=== PATIENT | female | born 1980 | race Two or more races ===

== ENCOUNTER 2021-07-11 11:01 | Outpatient (REF) | payer MEDICAID, SELFPAY ==
--- NOTE | ~2021-07-11 | MM_ITS ---
EXAMINATION: MM DIAGNOSTIC DIGITAL BREAST TOMOSYNTHESIS, BILATERAL US DIAGNOSTIC ULTRASOUND BREAST, LEFT CLINICAL INFORMATION: 41-year-old with lateral left breast pain for 3 months. No known family history breast cancer. No prior breast imaging. The lifetime risk of breast cancer based on the Tyrer-Cuzick Model is 7%. COMPARISON: None (current study represents initial baseline exam). TECHNIQUE: Digital breast tomosynthesis is performed in both the craniocaudal and mediolateral oblique views along with computer-aided detection (CAD). Synthesized 2D images are generated from the tomosynthesis. Ultrasound left breast is targeted to the area of clinical concern outer left breast. Grayscale imaging and color Doppler are performed without and with harmonics. Patient is able to point to the area of concern at time of imaging. FINDINGS: There are scattered areas of fibroglandular density (ACR BI-RADS breast composition Category b). There are no significant masses, abnormal calcifications, or other abnormalities. The axilla and skin contours are unremarkable. There is no skin thickening or coarsening of the Luigi's ligaments. Ultrasound left breast demonstrates no suspicious finding medial. There is no skin thickening or edema tracking in soft tissue planes, duct ectasia, solid mass, architectural abnormality. Incidental tiny simple cyst is present 3:00 position 7 cm from nipple, only 0.3 cm in size. Results are discussed with the patient and family at time of visit, using an sign language interpreter. MM/MM tomosynthesis diagnostic BI IMPRESSION: 1. No mammographic evidence of malignancy or inflammatory changes. 2. Tiny incidental simple cyst 3:00 position on ultrasound, only 3 mm. ASSESSMENT: BI-RADS 2: Benign RECOMMENDATION: 1. Patient's breast pain should be managed based on the clinical impression. 2. Otherwise, routine annual screening mammography. This patient's information was entered into a reminder system with a target due date for their next mammogram.
== END 2021-07-11 11:02 | disposition home or self-care (01) ==
LOC: HO.MAMMO 11:01
PROVIDERS: PCP General Practice; Visit Provider Family Medicine
DX: N64.4 Mastodynia (principal)
CPT/HCPCS: 76642; 77062; 77066

== ENCOUNTER 2021-09-26 09:10 | Outpatient (REF) | payer MEDICAID, SELFPAY ==
--- NOTE | ~2021-09-26 | XR_ITS ---
EXAMINATION: XR CHEST CLINICAL INFORMATION: Chronic cough COMPARISON: Chest radiographs 05/09/2016, 04/05/2012 TECHNIQUE: The chest is imaged in 2 PA views and a lateral projection for a total of 3 views. FINDINGS: The heart is within limits of normal size. The vascularity is normal. There is no airspace consolidation or groundglass opacity or effusion. The costophrenic sulci are clear. The hilar and mediastinal contours and bony structures are unremarkable. XR/XR chest 2V IMPRESSION: Unremarkable examination.
== END 2021-09-26 09:11 | disposition home or self-care (01) ==
LOC: HO.XRAY 09:10
PROVIDERS: PCP General Practice; Visit Provider General Practice
DX: R05.3 Chronic cough (principal)
CPT/HCPCS: 71046

== ENCOUNTER 2021-10-23 09:02 | Outpatient (REF) | payer MEDICAID, SELFPAY ==
--- NOTE | ~2021-10-23 | US_ITS ---
EXAMINATION: US THYROID CLINICAL INFORMATION: Elevated TSH. Difficulty swallowing. COMPARISON: None TECHNIQUE: Linear transducer grayscale and color Doppler examination with attention to the region of the thyroid. FINDINGS: SIZE: Measurements of the thyroid lobes and nodules are given in sagittal, anteroposterior and transverse dimensions respectively. Right Thyroid Lobe: 3.7 x 1.2 x 1.3 cm, volume 3.1 mL. Parenchyma: The gland echotexture is homogeneous. Thyroid vascularity is normal. Left Thyroid Lobe: 4.2 x 1.2 x 1.3 cm, volume 3.2 mL. Parenchyma: The gland echotexture is homogeneous. Thyroid vascularity is normal. Isthmus: 0.2 cm in maximum AP dimension. Estimated total number of nodules greater than or equal to 1 cm: 0. Weight Shifter nodules are described as follows: 1. Location: Left lower pole. Size: 0.4 x 0.2 x 0.3 cm, volume 0.01 mL. Nodule characteristics: Composition: Cystic(0). ACR TI-RADS total points: 0 ACR TI-RADS category: 1 NODES: No lymphadenopathy is seen in the tissue surrounding the thyroid gland. US/US thyroid IMPRESSION: Small left cystic nodule measuring 4 x 2 x 3 mm. Otherwise unremarkable exam. ACR TI-RADS RECOMMENDATION REFERENCE: Ultrasound-guided fine-needle aspiration, followup ultrasound, no further follow up. * TR1 (0 point) and TR 2 (2 points): No FNA or follow up * TR3 (3 points): FNA if more than or equal to 2.5 cm in maximum dimension, followup ultrasound in 1, 3 and 5 years if 1.5 to 2.4 cm in maximum dimension. * TR4 (4-6 points): FNA if more than or equal to 1.5 cm in maximum dimension, followup ultrasound in 1, 2, 3 and 5 years if 1 to 1.4 cm in maximum dimension. * TR5 (more than or equal to 7 points): FNA if more than or equal to 1 cm in maximum dimension, followup ultrasound every year for 5 years if 0.5 to 0.9 cm in maximum dimension. * TR3, TR4 or TR5 nodules that are below the size threshold for follow up receive no follow up.
--- NOTE | ~2021-10-23 | CT_ITS ---
EXAMINATION: CT HEAD WITHOUT CONTRAST CLINICAL INFORMATION: Migraine. COMPARISON: None TECHNIQUE: Contiguous axial imaging was performed from the skull base to vertex without intravenous administration of contrast. This CT examination was performed using dose optimization techniques as appropriate, variously including the following: *Automated exposure control *Adjustment of mA and/or kV according to patient size (this includes techniques or standardized protocols for targeted exams where dose is matched to indication/reason for exam; i.e. extremities or head) *Use of iterative reconstruction technique DLP: 831 mGy-cm FINDINGS: There is no evidence of acute intracranial hemorrhage or territorial infarction. No abnormal mass effect or midline shift is seen. Jerry to white matter differentiation is well preserved. No extra-axial fluid collections are identified. The ventricles are normal in size. There is no abnormal attenuation within the brain parenchyma. The osseous structures and soft tissues are normal. The mastoid air cells and visualized portions of the paranasal sinuses are well aerated. CT/CT head/brain wo con IMPRESSION: No acute intracranial process seen.
== END 2021-10-23 09:03 | disposition home or self-care (01) ==
LOC: HO.CT 09:02
PROVIDERS: Visit Provider General Practice
DX: E03.9 Hypothyroidism, unspecified (principal); G43.009 Migraine without aura, not intractable, without status migrainosus; R13.10 Dysphagia, unspecified
CPT/HCPCS: 70450; 76536

== ENCOUNTER 2021-11-06 09:36 | Outpatient (RCR) | payer MEDICAID, SELFPAY ==
[2021-11-06 09:54] VITALS: BP 132/80; PULSE 77; O2SAT 93
== END 2021-12-10 10:21 | disposition home or self-care (01) ==
LOC: HO.PTCHIC 09:36
PROVIDERS: PCP General Practice; Visit Provider Registered Nurse Community Health
DX: R42 Dizziness and giddiness (principal)
CPT/HCPCS: 95992; 97161

== ENCOUNTER → 2022-06-18 09:20 | Outpatient (BNV) | payer MEDICAID, SELFPAY | PROVIDERS: PCP General Practice; Visit Provider Internal Medicine | DX: D75.839 Thrombocytosis, unspecified (principal) | CPT/HCPCS: 99204; 99213 ==

== ENCOUNTER 2022-08-08 09:05 | Outpatient (REF) | payer MEDICAID, SELFPAY ==
--- NOTE | ~2022-08-08 | MM_ITS ---
EXAMINATION: MM SCREENING DIGITAL BREAST TOMOSYNTHESIS, BILATERAL CLINICAL INFORMATION: Screening. Asymptomatic. The lifetime risk of breast cancer based on the Tyrer-Cuzick Model is 8%. COMPARISON: Mammography: 07/11/2021, left breast ultrasound 07/11/2021 TECHNIQUE: Digital breast tomosynthesis is performed in both the craniocaudal and mediolateral oblique views along with computer-aided detection (CAD). Synthesized 2D images are generated from the tomosynthesis. FINDINGS: There are scattered areas of fibroglandular density (ACR BI-RADS breast composition Category b). There are no significant masses, abnormal calcifications, or other abnormalities. Parenchymal pattern is similar to prior exam. No architectural abnormality. The axilla and skin contours are unremarkable. No significant changes. MM/MM tomosynthesis screening BI IMPRESSION: No mammographic evidence of malignancy. ASSESSMENT: BI-RADS 1: Negative RECOMMENDATION: Routine annual mammography screening. This patient's information was entered into a reminder system with a target due date for their next mammogram.
== END 2022-08-08 09:06 | disposition home or self-care (01) ==
LOC: HO.MAMMO 09:05
PROVIDERS: PCP General Practice; Visit Provider General Practice
DX: Z12.31 Encounter for screening mammogram for malignant neoplasm of breast (principal)
CPT/HCPCS: 77063; 77067

== ENCOUNTER 2022-12-24 11:00 | Outpatient (REF) | payer MEDICAID, SELFPAY ==
--- NOTE | ~2022-12-24 | CT_ITS ---
EXAMINATION: CT ABDOMEN AND PELVIS WITH CONTRAST CLINICAL INFORMATION: Post operative abdominal pain. History of radha gonzalez September 2022 COMPARISON: Previous MRI of the abdomen and ultrasound of the abdomen October [address] of the abdomen and pelvis August 2017 TECHNIQUE: Multidetector volumetric images were obtained from the superior aspect of the liver through the pubic symphysis following administration 85 mL of Omnipaque 350 intravenous contrast. Sagittal and coronal reformatted images were obtained on the technologist's workstation. Oral contrast: Yes This CT examination was performed using dose optimization techniques as appropriate, variously including the following: *Automated exposure control *Adjustment of mA and/or kV according to patient size (this includes techniques or standardized protocols for targeted exams where dose is matched to indication/reason for exam; i.e. extremities or head) *Use of iterative reconstruction technique DLP: 423 mGy-cm FINDINGS: LUNG BASES: The visualized lung bases are unremarkable. LIVER, GALLBLADDER, AND BILIARY TREE: Fatty liver. No focal hepatic lesion or biliary ductal dilatation is present. The gallbladder is unremarkable with no evidence of radiopaque gallstones, gallbladder wall thickening, or obvious pericholecystic inflammatory changes. PANCREAS: Unremarkable. SPLEEN: Unremarkable. ADRENAL GLANDS: Unremarkable. KIDNEYS AND URETERS: Slight decrease in size in the now 1.2 x 1 cm low-attenuation lesion in the anterior mid pole of the right kidney. This was found to represent a complex cyst on prior exams. This measured 2.2 x 2.4 cm on prior imaging. The kidneys are otherwise normal. BLADDER: Unremarkable. GASTROINTESTINAL TRACT: The small and large bowel are unremarkable. The appendix is unremarkable. ABDOMINAL WALL: Postsurgical changes to the anterior abdominal wall. No fluid collection or hematoma. No hernia. LYMPH NODES: Normal. VASCULAR: Unremarkable. PELVIC VISCERA: Unremarkable. OSSEOUS STRUCTURES: Disc space narrowing at L5-S1. CT/CT abdomen pelvis w IV con IMPRESSION: Postsurgical changes to the anterior abdominal wall. No fluid collection, hematoma or hernia seen. Fatty liver. Slight decrease in size in the probable complex cyst in the right kidney. Fleischner guidelines were followed.
[2022-12-24] MEDS: iohexoL 350 MG/ML 100 ML INFUS..BTL 85 ML IV (14:02)
[2022-12-24] MEDS: Barium Sulfate Oral (Mocha) 450 ML ORAL.SUSP 900 ML PO (14:03)
== END 2022-12-24 11:01 | disposition home or self-care (01) ==
LOC: HO.CT 11:00
PROVIDERS: PCP General Practice; Visit Provider Internal Medicine
DX: R10.9 Unspecified abdominal pain (principal); G89.18 Other acute postprocedural pain
CPT/HCPCS: 74177; Q9967

== ENCOUNTER → 2023-01-21 10:17 | Outpatient (BNVA) | payer MEDICAID, SELFPAY | PROVIDERS: PCP General Practice; Visit Provider Nurse Practitioner Family | DX: N28.1 Cyst of kidney, acquired (principal) | CPT/HCPCS: 99202 ==

== ENCOUNTER → 2023-08-10 09:30 | Outpatient (BNV) | payer MEDICAID, SELFPAY | PROVIDERS: PCP General Practice; Visit Provider Radiology Diagnostic Radiology | DX: Z12.31 Encounter for screening mammogram for malignant neoplasm of breast (principal) | CPT/HCPCS: 77063; 77067 ==

== ENCOUNTER 2023-08-10 09:41 | Outpatient (REF) | payer MEDICAID, SELFPAY | END 2023-08-10 09:42 | disposition home or self-care (01) | LOC: HO.MAMMO 09:41 | PROVIDERS: PCP General Practice; Visit Provider General Practice | DX: Z12.31 Encounter for screening mammogram for malignant neoplasm of breast (principal) | CPT/HCPCS: 77063; 77067 ==

== ENCOUNTER 2024-02-26 10:40 | Outpatient (REF) | payer MEDICAID, SELFPAY ==
[2024-02-26 11:19] LABS: MANUAL DIFF FLAG NO
[2024-02-26 11:32] LABS: Basophils Absolute Auto 0.1 X10*3/uL (0.0-0.2); Eosinophils Absolute Auto 0.2 X10*3/uL (0.0-0.4); Eosinophils Percent Auto 2.9 % (0-4); Hematocrit 35.8 % (37.0-47.0); Hemoglobin 11.9 g/dl (12.0-16.0); Imm Gran Abs Auto 0.03 X10*3/uL (0.00-0.03); Imm Gran Pct Auto 0.4 % (0.0-0.4); Lymphocytes Absolute Auto 2.1 X10*3/uL (1.2-4.9); Lymphocytes Percent Auto 26.8 % (20-40); Mean Corpuscular HGB Conc 33.2 g/dl (31.0-35.0); Mean Corpuscular Hemoglobin 29.6 pg (27.0-33.0); Mean Corpuscular Volume 89.1 fL (80.0-98.0); Mean Platelet Volume 9.9 fL (9.4-12.3); Monocytes Absolute Auto 0.5 X10*3/uL (0.1-1.2); Monocytes Percent Auto 6.6 % (2-11); Neutrophils Absolute Auto 4.9 x10*3/uL (2.0-8.3); Neutrophils Percent Auto 62.3 % (45-73); Platelet Count 450 X10*3/uL (160-400); Red Blood Count 4.02 X10*6/uL (4.20-5.50); Red Cell Distribution Width 12.7 % (11.0-16.0); White Blood Count 7.9 X10*3/uL (4.8-10.8)
[2024-02-26 11:45] LABS: Estimated Average Glucose 100 mg/dL; Hemoglobin A1C 97.4202 umol/L; Hemoglobin A1c % 5.1 % (<6.0)
[2024-02-26 13:44] LABS: Alanine Aminotransferase 19 U/L (0-31); Albumin Level 3.8 g/dL (3.5-5.0); Alkaline Phosphatase 61 U/L (39-117); Anion Gap 11 (12-20); Aspartate Amino Transferase 19 U/L (5-31); Bilirubin Total 0.3 mg/dL (0.0-1.0); Blood Urea Nitrogen 7 mg/dL (9-16); Calcium 8.7 mg/dL (8.4-10.2); Carbon Dioxide 26 mmol/L (22-29); Chloride 106 mmol/L (96-108); Cholesterol 183 mg/dL (<200); Estimated Glomerular Filt Rate > 60; Glucose Random 83 mg/dL (60-115); HDL Cholesterol 57 mg/dL (>40); LDL Cholesterol Calculated 105 mg/dL (<100); Potassium 3.5 mmol/L (3.3-5.1); Sodium 139 mmol/L (135-145); Total Protein 6.7 g/dL (6.5-8.0); Triglycerides 109 mg/dL (<150)
[2024-02-26 14:01] LABS: TSH reflex Free T4 2.36 uIU/mL (0.32-4.0)
[2024-02-26 20:56] LABS: Reflex LDLD? No
== END 2024-02-26 10:41 | disposition home or self-care (01) ==
LOC: HO.HHCL 10:40
PROVIDERS: Visit Provider Internal Medicine
DX: R07.89 Other chest pain (principal); I10 Essential (primary) hypertension
CPT/HCPCS: 36415; 80053; 80061; 83036; 84443; 85025

== ENCOUNTER 2024-05-17 13:45 | Outpatient (AMB) | payer MEDICAID, SELFPAY ==
[2024-05-17 14:01] VITALS: BP 126/70; BMI 33.3
--- NOTE | 2024-05-17 14:01 | A.OFFVIS_ITS ---
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,PYTHON PROGRAMMER annual exam Information Interpreted: clinical only Mover Helper: Mover Helper Present Allergies acetaminophen [Percocet] Allergy (Unknown, Verified 05/17/24 14:02) Nausea oxycodone [Percocet] Allergy (Unknown, Verified 05/17/24 14:02) Nausea From PERCOCET Allergy (Mild, Uncoded 05/17/24 14:02) NAUSEA Medication List - Last Reconciled 05/17/24 by Samia Stevens CNM amitriptyline 1 tab PO BEDTIME baclofen 1 tab PO TID PRN escitalopram oxalate (Lexapro) 1 tab PO QAM levothyroxine 1 tab PO DAILY lisinopril-hydrochlorothiazide 20-25 mg 1 tab PO DAILY lorazepam 0.5 mg PO DAILY PRN zolpidem (Ambien) 5 mg PO BEDTIME Is last menstrual period known: Yes Last menstrual period: 05/05/24 HPI HPI PRODUCTION SUPERVISOR OFF SHIFT,PYTHON PROGRAMMER annual exam: Details: Patient is here for technical aide annual exam she remembers having an abnormal Pap smear 1999 she had some procedure after but she does not know what she had done. Also she members in 2016 she wanted to get her tubes tied and she says they tried but they said there was too much scar tissue and they referred her to [facility] but the paperwork never got there for the referral so nothing ever happened. In 2022 she had a abdominal plasty in the [place]. She says all her Paps ever since the abnormal 1 in 1999. She has just been in condoms or otherwise avoiding but no actual control method ever since. She says sometimes her periods are getting heavier more clots but they are not really a at this she has a adult her in visit. She says she is up-to-date on g and this year. She does not remember what happened with the referral to Urology for the cyst in her kidney. [facility] Surgical History History of surgery on arm Family History Father Liver cancer Social History Household Members: Children Housing: House Are you a primary home care physical therapist to a significant other at home: No Do you presently have visiting nurse or other home services: No Patient Tobacco Use Status: Never used Tobacco service: No Current occupational status: unemployed Female Reproductive History Menstrual Duration of menses: 3-5 days Date of last menstrual period: 05/05/24 control method: none Total pregnancies: 3 Full term: 3 Date of last pap smear: 08/25/22 (neg pap per patient) History of abnormal pap smear: Yes (2000,abn.pap per pt) Date of Mammogram: 08/10/23 (negative) Physical Exam Vital Signs: Last Vital Signs BP 126/70 05/17/24 14:01 BMI result Body Mass Index 33.3 Const General: healthy appearing, comfortable, no acute distress, well developed and alert Nutritional Appearance: average body habitus Orientation/consciousness: patient oriented x3 Limitations: no limitations HEENT Head: Yes normocephalic Neck Neck: Yes normal visual inspection Chest Chest palpation & inspection: normal inspection of the chest Breast/axilla inspection: normal inspection of the breasts and normal inspection of the axillae Breast/axilla palpation: normal palpation of the breasts and normal palpation of the axillae Resp Effort & Inspection: normal respiratory effort GI Inspection: Yes normal to inspection, No Abdominal wall edema and No distended Palpation (GI): Soft to palpation and nontender Other: Normal external exam vagina pink and moist cervix perfectly round consistent with possible LEEP? Cervix long close thick mobile uterus is somewhat fixed anteriorly consistent with either repeat C-sections or other surgery (abdominal plasty?) patient reports having been referred to [facility] in 2017 because an attempt to do tubal ligation was not possible at [facility] because of too much abdominal scar tissue. General: Yes bladder normal to palpation External Female Exam: normal external appearance and normal appearance of the urethra Speculum Exam - Vagina: normal appearance of the vagina, normal palpation and normal vaginal discharge Speculum Exam - Cervix: normal appearance of the cervix, normal palpation and nontender Bimanual exam- vagina & uterus: normal bimanual exam, normal palpation, uterine size normal, bladder normal to palpation, consistency normal, normal palpation, uterine shape normal, No Cervical tenderness present, non-tender and no cervical motion tenderness Bimanual Exam- Adnexa, other: normal adnexae, no masses, normal and No adnexal tenderness Neuro General: patient oriented x3 Assessment & Plan Assessment & Plan (1) Cervical cancer screening: Comment: hx of abnormal pap 1999, had a procedure after, ?LEEP? Code(s): Z12.4 - Encounter for screening for malignant neoplasm of cervix Category: Medical (2) Encounter for screening examination for sexually transmitted disease: Code(s): Z11.3 - Encounter for screening for infections with a predominantly sexual mode of transmission Category: Medical (3) Breast cancer screening: Code(s): Z12.39 - Encounter for other screening for malignant neoplasm of breast Category: Medical (4) Hx of abdominoplasty: Comment: In [place] 20[place], with scar tissue Code(s): Z98.890 - Other specified postprocedural states Category: Surgical (5) Scar tissue: Comment: Uterus feels somewhat anteriorly to abdominal scar tissue. Patient states that in 2016 she was referred to [facility] because she had too much scar tissue to have tubal ligation at [facility] but records never got transmitted. Patient states her other abdominal surgery in the [place] was in 2022. Code(s): L90.5 - Scar conditions and fibrosis of skin Category: Medical Plan -----Discussed in this visit the following: healthy balanced diet, regular and consistent exercise, getting recommended health screens, doing the best she can for her particular health concerns, kegel exercises, pap smear screening and followup recommendations, mammography screening and SBE, normal changes in cycles in her life stage--- . Discussed premenapausal changes, discussed normal changes to menses. if her menses become more severe or heavy and problematic she could see per for treatment. For now she says content leave things as they terms of control. If anything is causing her problem, she will call. this she is going to follow-up with her primary care provider re other issues.. We will await this Pap results and I also offered her testing for STIs which she accepted. Orders: Orders CT NG by PCR Today N89.8 - Other specified noninflammatory disorders of vagina PAP + HPV E6/E7 rfx 18/45 Today Z00.00 - Encounter for general adult medical examination without abnormal findings Hepatitis B Surface Antigen Today L90.5 - Scar conditions and fibrosis of skin, Z11.3 - Encounter for screening for infections with a predominantly sexual mode of transmission, Z12.39 - Encounter for other screening for malignant neoplasm of breast, Z12.4 - Encounter for screening for malignant neoplasm of cervix, Z98.890 - Other specified postprocedural states Bacterial Vaginosis Panel Today N89.8 - Other specified noninflammatory disorders of vagina Hepatitis C Antibody Today L90.5 - Scar conditions and fibrosis of skin, Z11.3 - Encounter for screening for infections with a predominantly sexual mode of transmission, Z12.39 - Encounter for other screening for malignant neoplasm of breast, Z12.4 - Encounter for screening for malignant neoplasm of cervix, Z98 .890 - Other specified postprocedural states HIV Ab/Ag Today L90.5 - Scar conditions and fibrosis of skin, Z11.3 - Encounter for screening for infections with a predominantly sexual mode of transmission, Z12.39 - Encounter for other screening for malignant neoplasm of breast, Z12.4 - Encounter for screening for malignant neoplasm of cervix, Z98.890 - Other specified postprocedural states Syphilis Screen Today L90.5 - Scar conditions and fibrosis of skin, Z11.3 - Encounter for screening for infections with a predominantly sexual mode of milian smission, Z12.39 - Encounter for other screening for malignant neoplasm of breast, Z12.4 - Encounter for screening for malignant neoplasm of cervix, Z98.890 - Other specified postprocedural states Coding Level of Care Code New Pt Prev Care 40-64y([id number]) Diagnoses Cervical cancer screening Z12.4 Encounter for screening examination for sexually transmitted disease Z11.3 Breast cancer screening Z12.39 Hx of abdominoplasty Z98.890 Scar tissue L90.5
== END 2024-05-17 15:03 | disposition home or self-care (01) ==
LOC: HO.HWSM 13:45
PROVIDERS: PCP General Practice; Visit Provider Advanced Practice Midwife
DX: Z12.4 Encounter for screening for malignant neoplasm of cervix (principal); Z11.3 Encounter for screening for infections with a predominantly sexual mode of transmission; Z12.39 Encounter for other screening for malignant neoplasm of breast; Z98.890 Other specified postprocedural states; L90.5 Scar conditions and fibrosis of skin
CPT/HCPCS: 99386

== ENCOUNTER 2024-05-17 13:45 | Outpatient (REF) | payer MEDICAID, SELFPAY ==
[2024-05-18 13:41] LABS: CT PCR NOT DETECTED (Not Detect.); NG PCR NOT DETECTED (Not Detect.)
[2024-05-18 13:55] LABS: Bacterial Vaginosis PCR NEGATIVE (Negative); Candida Group PCR NOT DETECTED (Not Detect); Candida glab krusei PCR DETECTED (Not Detect); Trichomonas vaginalis PCR NOT DETECTED (Not Detect)
[2024-05-20 12:28] LABS: HPV mRNA E6/E7 Not Detected (Not Detected)
== END 2024-05-17 13:46 | disposition home or self-care (01) ==
LOC: HO.LAB 13:45
PROVIDERS: PCP General Practice; Visit Provider Advanced Practice Midwife
DX: Z00.00 Encounter for general adult medical examination without abnormal findings (principal); N89.8 Other specified noninflammatory disorders of vagina; L90.5 Scar conditions and fibrosis of skin; Z11.3 Encounter for screening for infections with a predominantly sexual mode of transmission; Z12.39 Encounter for other screening for malignant neoplasm of breast; Z12.4 Encounter for screening for malignant neoplasm of cervix; Z98.890 Other specified postprocedural states
CPT/HCPCS: 0352U; 36415; 87491; 87591; 87624; 88175; 99386

== ENCOUNTER 2024-05-30 10:30 | Outpatient (REF) | payer MEDICAID, SELFPAY ==
[2024-05-30 11:43] LABS: MANUAL DIFF FLAG NO
[2024-05-30 11:51] LABS: Basophils Absolute Auto 0.1 X10*3/uL (0.0-0.2); Basophils Percent Auto 1.2 % (0-2); Eosinophils Absolute Auto 0.2 X10*3/uL (0.0-0.4); Eosinophils Percent Auto 2.8 % (0-4); Hemoglobin 12.2 g/dl (12.0-16.0); Imm Gran Abs Auto 0.03 X10*3/uL (0.00-0.03); Imm Gran Pct Auto 0.4 % (0.0-0.4); Lymphocytes Absolute Auto 2.5 X10*3/uL (1.2-4.9); Lymphocytes Percent Auto 32.1 % (20-40); Mean Corpuscular Hemoglobin 29.3 pg (27.0-33.0); Mean Corpuscular Volume 88.9 fL (80.0-98.0); Mean Platelet Volume 10.1 fL (9.4-12.3); Monocytes Absolute Auto 0.4 X10*3/uL (0.1-1.2); Monocytes Percent Auto 5.1 % (2-11); Neutrophils Absolute Auto 4.5 x10*3/uL (2.0-8.3); Neutrophils Percent Auto 58.4 % (45-73); Platelet Count 442 X10*3/uL (160-400); Red Blood Count 4.16 X10*6/uL (4.20-5.50); Red Cell Distribution Width 12.4 % (11.0-16.0); White Blood Count 7.7 X10*3/uL (4.8-10.8)
[2024-05-30 13:03] LABS: Alanine Aminotransferase 25 U/L (0-31); Albumin Level 3.9 g/dL (3.5-5.0); Alkaline Phosphatase 66 U/L (39-117); Anion Gap 13 (12-20); Aspartate Amino Transferase 21 U/L (5-31); Bilirubin Total 0.3 mg/dL (0.0-1.0); Blood Urea Nitrogen 12 mg/dL (9-16); Calcium 8.9 mg/dL (8.4-10.2); Carbon Dioxide 24 mmol/L (22-29); Chloride 107 mmol/L (96-108); Estimated Glomerular Filt Rate > 60; Glucose Random 83 mg/dL (60-115); Potassium 4.4 mmol/L (3.3-5.1); Sodium 140 mmol/L (135-145)
[2024-05-30 13:07] LABS: TSH reflex Free T4 1.77 uIU/mL (0.32-4.0)
[2024-05-31 03:36] LABS: Syphilis Screen Nonreactive (Nonreactive)
[2024-05-31 03:45] LABS: HBsAGNum1 0.41 S/CO (0.00-0.99); HIV AB/AG Nonreactive (Nonreactive); HIV Num 1 0.05 S/CO (0.00-0.99); Hepatitis B Surface Antigen Negative (Negative); ~HepC Num1 0.07 S/CO (0.00-0.79); ~Hepatitis C Antibody Nonreactive (Nonreactive)
== END 2024-05-30 10:31 | disposition home or self-care (01) ==
LOC: HO.HHCL 10:30
PROVIDERS: Advanced Practice Midwife; Visit Provider General Practice
DX: Z12.4 Encounter for screening for malignant neoplasm of cervix (principal); Z11.3 Encounter for screening for infections with a predominantly sexual mode of transmission; Z12.39 Encounter for other screening for malignant neoplasm of breast; Z98.890 Other specified postprocedural states; L90.5 Scar conditions and fibrosis of skin; E66.812 Obesity, class 2
CPT/HCPCS: 36415; 80053; 84443; 85025; 86780; 86803; 87340; 87389

== ENCOUNTER 2024-08-19 14:36 | Outpatient (REF) | payer MEDICAID, SELFPAY ==
--- OUTSIDE RECORDS SUMMARY | 2024-08-19 16:04 | XMS_ITS | Encounter Summary ---
Author Organization [employer] Address [address] [place] [address] Care Team Providers Care Loom Checker Name Role Phone Yasmine Mao MD Primary Care Provider [phone] Reason for Referral * Consultation (Routine) - Closed Specialty Diagnoses / Procedures Referred By Farhat callahan Referred To Contact Obstetrics and Gynecology Diagnoses Screening for cervical cancer Yasmine Mao MD [address] [place] [id number] Phone: tel: fax: [address] Phone: tel: fax: Referral ID Status Reason Start Date Expiration Date V isits Requested Visits Authorized [id number] Closed Specialty Services Required 09/29/2023 09/27/2024 1 12 Encounter Details Date Type Department Care Team (Late st Contact Info) Description 09/25/2023 Orders Only [facility] [address] [place], [place] [id number] Yasmine Mao MD [address] [place] [address] [phone] Screening for cervical cancer (Primary Dx) Social History Tobacco Use Types Packs/Day Years Used Date Smoking Tobacco: Never Passive Smoke Exposure: Past Smokeless Tobacco: Never Alcohol Use Standard Drinks/Week Comments Never 0 (1 standard drink = 0.6 oz pur e alcohol) Housing Stability Answer Date Recorded What is your housing situation today? I have lisa peres 05/15/[address] you li ve. Do you have problems with any of the following? None of the above 05/15/2023 Food Insecurity Answer Date Recorded Within the past 12 months, y ou worried that your food would run out before you got money to buy more: Never True 05/15/2023 Within the past 12 months,th e food you bought just didn't last and you didn't have enough money to get more: Never True Transportation Answer Date Recorded In the past 12 months, has l ack of transportation kept you from medical appts, meetings, work or from getting things needed for daily living? Yes, it has kept me from medical appointments or getting medications. 05/04/2023 Utilities Answer Date Recorded In the past 12 months, has t he electric, gas, oil or water company threatened to shut off services in your home? No 05/15/2023 Depression Answer Date Recorded Patient Health Questionnaire-2 Score 0 07/18/2022 Comments No Sex and Gender Information Value Date Recorded Sex Assigned at Female 05/26/2022 10:16 AM EDT Legal Sex Female 10:16 AM EDT Gender Identity Female 05/26/2022 10:16 AM EDT Sexual Orientation Straight 05/26/2022 10 :16 AM EDT documented as of this encounter Plan of Treatment Scheduled Referrals Name Type Priority Associated Diagnoses Order Schedule Referral to Obstetrics / Gynecology Outpatient Referral Routine Screening for cervical cancer Expected: 09/25/2023 (Approximate), Expires: 09/24/2024 documented as of this encounter Visit Diagnoses Diagnosis Screening for cervical cancer- Primary Screening for malignant neoplasm of the cervix documented in this encounter Care Teams Loom Checker Relationship Specialty Start Date End Date Yasmine Mao MD [address] [place] [address] PCP - General Family Medicine 10/30/20 documented as of this encounter
--- OUTSIDE RECORDS SUMMARY | 2024-08-19 16:04 | XMS_ITS | Encounter Summary ---
Author Organization [employer] Address [address] [place] [address] Care Team Providers Care Chip Drier Name Role Phone Yasmine Mao MD Primary Care Provider [phone] Encounter Details Date Type Department Care Team (Latest Contact Info) Description 08/18/2024 Travel Social History Tobacco Use Types Packs/Day Years Used Date Smoking Tobacco: Never Passive Smoke Exposure: Past Smokeless Tobacco: Never Alcohol Use Standard Drinks/Week Comments Never 0 (1 standard drink = 0.6 oz pur e alcohol) Depression Answer Date Recorded Patient Health Questionnaire-9 Score 8 02/26/2024 Patient Health Questionnaire-9 Score 8 02/26/2024 Last PHQ-9: Questionnaire Data Not on file 0 02/26/2024 Housing Stability Answer Date Recorded What is your housing situation today? I have lisa peres 02/26/[address] you li ve. Do you have problems with any of the following? None of the above 02/26/2024 Food Insecurity Answer Date Recorded Within the past 12 months, y ou worried that your food would run out before you got money to buy more: Never True 02/26/2024 Within the past 12 months,th e food you bought just didn't last and you didn't have enough money to get more: Never True 08/2023 Transportation Answer Date Recorded In the past 12 months, has l ack of transportation kept you from medical appts, meetings, work or from getting things needed for daily living? No 02/26/2024 Utilities Answer Date Recorded In the past 12 months, has t he electric, gas, oil or water company threatened to shut off services in your home? No 02/26/2024 Depression Answer Date Recorded Patient Health Questionnaire-2 Score 1 02/26/2024 Internet Access Answer Date Recorded Internet Access Q1 Yes 03/28/2024 Internet Access Q2 Not on file 03/28/2024 Comments No Sex and Gender Information Value Date Recorded Sex Assigned at Female 05/26/2022 10:16 AM EDT Legal Sex Female 10:16 AM EDT Gender Identity Female 05/26/2022 10:16 AM EDT Sexual Orientation Straight 05/26/2022 10 :16 AM EDT documented as of this encounter Plan of Treatment Not on file documented as of this encounter Visit Diagnoses Not on filedocumented in this encounter Additional Health Concerns Assessment Noted Time PHQ-9 Depression Total Score: 8 02/26/20 24 10:10 AM EDT documented as of this encounter Care Teams Chip Drier Relationship Specialty Start Date End Date Yasmine Mao MD [address] [place] [id number] PCP - General Family Medicine 10/30/20 documented as of this encounter
--- OUTSIDE RECORDS SUMMARY | 2024-08-19 16:04 | XMS_ITS | Encounter Summary ---
Author Organization [employer] Address [address] [place] [address] Care Team Providers Care Fixed Interest Dealer Name Role Phone Yasmine Mao MD Primary Care Provider [phone] Reason for Visit * Reason Onset Date Comments Nurse Triage 03/12/2023 Encounter Details Date Type Department Care Team (Late st Contact Info) Description 03/12/2023 Telephone [facility] [address] [place], [place] [phone] Yasmine Mao MD [address] [place], [place] [phone] Nurse Triage Social History Tobacco Use Types Packs/Day Years Used Date Smoking Tobacco: Never Passive Smoke Exposure: Past Smokeless Tobacco: Never Alcohol Use Standard Drinks/Week Comments Never 0 (1 standard drink = 0.6 oz pur e alcohol) Depression Answer Date Recorded Patient Health Questionnaire-2 Score 0 07/18/2022 Comments No Sex and Gender Information Value Date Recorded Sex Assigned at Female 05/26/2022 10:16 AM EDT Legal Sex Female 10:16 AM EDT Gender Identity Female 05/26/2022 10:16 AM EDT Sexual Orientation Straight 05/26/2022 10 :16 AM EDT documented as of this encounter Miscellaneous Notes * Telephone Encounter - Светлана Soto RN - 03/12/2023 1:05 PM EDT Triage call with [place] [id number] Pt is calling in regards to bumps on bilateral hips and pain. Pt reports coming back from vacation 22 of February and has had this pain since then. Pt is able to walk and do normal activities but, reports pain with ambulation. Pt denies redness, fever, radiation of pain or numbness. Pt is taking ibuprofen for pain relief. Pt reports wearing a belt due to abdominoplasty which was done in 2022. Pt is considering that this belt is causing this pain because it rubs on the hip areas. Advised to come to [facility] today to have provider see Pt. Pt agrees with this disposition and home care reviewed. Protocol Used: Hip Pain (Adult) Protocol-Based Disposition: See in Office or Video Visit within 3 Days Positive Triage Question: * Moderate pain (e.g., interferes with normal activities, limping) and present > 3 days * All higher-acuity triage questions were negative Care Advice Discussed: * Reassurance and Education - Hip Pain * Pain Medicines * Pain Medicines - Extra Notes and Warnings * Rest Your Hip for the Next Couple Days * Reasons To Call Back - Moderate pain (e.g., limping) lasts more than 3 days - Mild pain lasts more than 7 days - Signs of infection occur (e.g., spreading redness, warmth, fever) - You become worse * Telephone Encounter - Becky Acevedo - 03/12/2023 12:36 PM EDT Symptom: Hip Pain - Not From Injury Outcome: Schedule an urgent appointment (within 1 hour) or talk to a nurse or provider soon Reason: Trouble walking The caller accepted this outcome Patient speaks swedish. documented in this encounter Plan of Treatment Not on file documented as of this encounter Visit Diagnoses Not on filedocumented in this encounter Care Teams Fixed Interest Dealer Relationship Specialty Start Date End Date Yasmine Mao MD [address] [place] [id number] PCP - General Family Medicine 10/30/20 documented as of this encounter
--- OUTSIDE RECORDS SUMMARY | 2024-08-19 16:04 | XMS_ITS | Encounter Summary ---
Author Organization [employer] Address [address] [place] [address] Care Team Providers Care Frog Shaker Name Role Phone Yasmine Mao MD Primary Care Provider [phone] Reason for Visit * Reason Comments Med Refill Encounter Details Date Type Department Care Team (Late st Contact Info) Description 06/21/2023 Refill [facility] [address] [place], [place] [phone] Sarah Beth Reynolds DO [address] [place], [place] [phone] Social History Tobacco Use Types Packs/Day Years [...] on filedocumented in this encounter Care Teams Frog Shaker Relationship Specialty Start Date End Date Yasmine Mao MD [address] [place] [phone] PCP - General Family Medicine 10/30/20 documented as of this encounter
--- OUTSIDE RECORDS SUMMARY | 2024-08-19 16:04 | XMS_ITS | Encounter Summary ---
Author Organization [employer] Address [address] [place] [address] Care Team Providers Care Continuous Miner Operator Name Role Phone Yasmine Mao MD Primary Care Provider [phone] Reason for Visit * Reason Comments Med Refill Encounter Details Date Type Department Care Team (Late st Contact Info) Description 07/22/2024 Refill [facility] [address] [place], [place] [phone] Yasmine Mao MD [address] [place], [place] [phone] Social History Tobacco Use Types Packs/Day Years [...] documented as of this encounter Care Teams Continuous Miner Operator Relationship Specialty Start Date End Date Yasmine Mao MD [address] [place] [address] PCP - General Family Medicine 10/30/20 documented as of this encounter
--- OUTSIDE RECORDS SUMMARY | 2024-08-19 16:04 | XMS_ITS | Clinical Summary ---
Author Organization [employer] Address [address] [facility] [address] [place] [address] Care Team Providers Care Central Supply Assistant Name Role Phone Yasmine Mao MD Primary Care Provider [phone] Allergies Active Allergy Reactions Criticality Noted Date Comments Oxycodone 04/07/2013 Other reaction(s): Nausea/Vomiting Oxycodone-Acetaminophen 11/06/2022 Medications omega-3 1000 MG capsule capsule Take 1 capsule by mouth in the morning. 04/22/20 22 Active ketoconazole (NIZOral) 2 % shampoo apply by topical route every day to the affected area(s), lather, leave in place for 10 minutes, and then rinse off with water 04/03/20 22 Active meclizine (Antivert) 25 MG tablet Take 1 tablet by mouth if needed in the morning, at noon, and at bedtime for dizziness. 10/18/19 22 Active EPINEPHrine (Epipen) 0.3 MG/0.3ML injection syringe Inject 0.3 mg into the shoulder, thigh, or buttocks 1 (one) time if needed for anaphylaxis. 05/26/20 19 Active escitalopram (Lexapro) 20 MG tablet Take 1 tablet by mouth 1 (one) time each day. Active zolpidem (Ambien) 10 MG tablet Take 1 tablet by mouth at bed time. Active ondansetron (Zofran) 4 MG tabletIndicati ons:Nausea TOME ST[place]ORD TABLETA POR VIA ORAL IF NEEDED IN THE MORNING AND AT BEDTIME FOR NAUSEA 60 tablet 09/22/19 23 Active busPIRone (Buspar) 15 MG tablet Take 15 mg by mouth 3 times daily. 12/11/19 23 Active QUEtiapine (SEROquel) 50 MG tablet Take 50 mg by mouth if needed at bedtime. 12/11/19 23 Active Senna-Time 8.6 MG tablet TOME DOS TABLETAS POR VIA ORAL AL ACOSTARSE CUANDO SEA [employer] 180 tablet 1 04/28/20 23 Active LORazepam (Ativan) 0.5 MG tablet TAKE 1 TABLET BY MOUTH SINGLE DOSE NEEDED 04/24/20 23 Active hydrocortisone (Proctosol HC) 2.5 % rectal cream INSERT INTO THE RECTUM IN THE MORNING, AT NOON, AND AT BEDTIME IF NEEDED FOR HEMORRHOIDS. 28 g 1 06/22/20 23 Active levothyroxine (Synthroid, Levoxyl) 50 MCG tablet TAKE 1 TABLET BY MOUTH EVERY DAY BEFORE BREAKFAST 90 tablet 3 05/26/20 24 Active cholecalcifero l VITAMIN D (Vitamin D-3) 50 MCG (1999 UT) capsuleIndicat ions:Vitamin D deficiency TAKE 3 CAPSULE BY MOUTH ONCE A DAY AFTER A MEAL 04/11/20 24 Active GaviLyte-G 236 g solution DRINK 240 ML POR V A ORAL EVERY 10 MINUTES 02/29/20 24 Active baclofen (Lioresal) 10 MG tabletIndicati ons:Intermitte nt low back pain Take 1 tablet (10 mg) by mouth if needed in the morning and at bedtime for muscle spasms. 30 tablet 3 05/30/20 24 Active B Complex Vitamins (vitamin B complex) tabletIndicati ons:Hair loss Take 1 tablet by mouth Once per day. 90 tablet 3 05/30/20 24 Active amitriptyline (Elavil) 50 MG tabletIndicati ons:Migraine without aura, not refractory Take 1 tablet (50 mg) by mouth at bedtime. To prevent migraines and back pain 90 tablet 3 05/31/20 24 025 Active dextran 70-hypromellos e (artificial tears) 0.1-0.3 % ophthalmic solutionIndica tions:Dry eyes, bilateral Administer 1 drop into both eyes if needed in the morning, at noon, and at bedtime for dry eyes. 15 mL 6 06/09/20 24 025 Active lisinopril-hyd roCHLOROthiazi de 20-25 MG tablet TAKE 1 TABLET BY MOUTH EVERY DAY 90 tablet 3 07/22/20 24 Active lisinopril-hyd roCHLOROthiazi de 20-25 MG tablet TAKE 1 TABLET BY MOUTH EVERY DAY 90 tablet 3 06/22/20 23 024 Discontinued Active Problems Problem Noted Date Diagnosed Date Unwanted fertility 05/31/2024 Overview (05/31/2024): Tried to have BTL at [facility] in 2018, could not insert laparoscopes due to scar tissue Assessment & Plan (05/31/2024 11:08 AM EST): Desires second opinion Other chest pain 02/26/2024 Blurred vision, bilateral 02/26/2024 Lower extremity edema 02/26/2024 Assessment & Plan (02/26/2024 10:49 AM EDT): Elevate legs Echo ordered Low Na diet F/u with PCP and cardiology Dyspnea on exertion 02/26/2024 Buttock pain 03/18/2023 Overview (03/18/2023): Likely due to medrotherapy -No evidence of infection or blood clot. -Recommend ibuprofen, warm compress, and bathing in Epson salt. -Advised to call if she develops any fevers, swelling of the legs, increased pain, or other concerns. Assessment & Plan (03/18/2023 2:35 PM EDT): Likely due to medrotherapy -No evidence of infection or blood clot. -Recommend ibuprofen, warm compress, and bathing in Epson salt. -Advised to call if she develops any fevers, swelling of the legs, increased pain, or other concerns. Postoperative abdominal pain 11/20/2022 Assessment & Plan (12/30/2022 3:28 PM EDT): S/p abdominoplasty 10/02/[address] without infection signals, fat necrosis, or hernia Has referral pending to plastic surgery for scar revision (potentially nerve injections?) Has urology referral for kidney cyst seen on CT scan Other hemorrhoids 11/20/2022 Assessment & Plan (11/20/2022 3:56 PM EDT): It was advise high fiber diet , increase water intake, walks C/w current treatment colace, polycarbophil and hydrocortisone F/u with PCP Anxiety 11/06/2022 History of gestational diabetes 11/06/2022 Migraine 11/06/2022 Essential thrombocytosis 07/18/2022 Assessment & Plan (07/18/2022 12:28 PM EST): Since 2004 followup with hematology as directed by Dr. Joyce Cota 06/27/2022 Vitamin D deficiency 06/27/2022 Hypercholesterolemia 05/26/2019 Complex renal cyst 04/25/2019 Overview (01/21/2023): Followed by [facility] renal, f/u annually w/ US. last seen 01/21/23 Recurrent major depressive episodes, moderate Intermittent low back pain 03/15/2018 Steatosis of liver 12/09/2017 Essential hypertension 04/04/2016 Assessment & Plan (02/26/2024 10:48 AM EDT): Maintenance: BMP: ordered today Lipid Panel: ordered today ASCVD Risk: Calculate pending updated labs -Patient did not took her medication today, I advise not to skip any dose - Aerobic exercise to reduce BP. Initial goal of 30 min walk 3-5x/week. Increase as tolerated. - low-sodium diet (goal: <2g/day) and heart healthy diet such as DASH to reduce BP and prevent ASCVD. - Home BP monitoring 1-2 x day with goal of <140/90. - Seek immediate medical attention for chest pain, palpitations, SOB, syncope, or sudden changes in mental status. - Do not change or discontinue current prescriptions without first consulting health care provider Assessment & Plan (07/18/2022 12:28 PM EST): At goal <140/90 Continue amlodipine 5mg, lisinopril-hydrochlorothiazide 20-25 daily Hypothyroidism 04/04/2016 Assessment & Plan (07/18/2022 12:28 PM EST): Continue Synthroid 50mcg daily Last TSH 2.77 on 03/2022 Recheck in 6 months Depressive disorder 05/24/2015 Migraine without aura, not refractory 05/24/2015 Class 2 obesity 05/24/2015 Resolved Problems Problem Noted Date Diagnosed Date Resolved Date Diabetes, gestational 03/18/20232022 H/O: hypothyroidism 03/18/2023 03/18/20 Acute headache 06/27/2022 11/06/2022 Abnormal glucose level 05/24/201505/31 Encounters Date Type Department Care Team Description 08/18/2024 Travel 07/22/2024 Refill [facility] [address] [place] [address] Yasmine Mao MD 06/27/2024 Telephone [facility] [address] [place] [address] Yasmine Mao MD No Show (PATIENT NO SHOW SICK ON SITE ) 06/21/2024 Telephone [facility] [address] [place] [address] Katarzyna Kim MA Chart Prep 06/16/2024 Telephone [facility] [address] [place] [address] Yasmine Mao MD Results 06/15/2024 Telephone [facility] [address] [place] [address] Yasmine Mao MD ER Follow-up 06/14/2024 Telephone [facility] [address] [place] [address] Emilia Amaral, OD 06/09/2024 10:30 AM EST Office Visit [facility] [address] [place] [address] Emilia Amaral, OD Anatomical narrow angle, left eye (Primary Dx); Squamous blepharitis of upper eyelids of both eyes; Dry eyes, bilateral; Presbyopia 06/09/2024 Travel 05/30/2024 9:30 AM EST Office Visit [facility] [address] [place] [address] Yasmine Mao MD Class 1 obesity with serious comorbidity and body mass index (BMI) of 34.0 to 34.9 in adult, unspecified obesity type (Primary Dx); Class 2 obesity; Essential thrombocytosis (CMS/HCC); Dietary counseling; Exercise counseling; Essential hypertension; Complex renal cyst; Other specified hypothyroidism; Anxiety; Migraine without aura, not refractory; Recurrent major depressive episodes, moderate (CMS/HCC); Hypercholesterolemia; Unwanted fertility; Steatosis of liver; Vitamin D deficiency; Intermittent low back pain; Hair loss 05/30/2024 Orders Only GENERIC EXTERNAL DATA DEPARTMENT Provider, Generic External Data 05/30/2024 Travel 05/26/2024 Refill [facility] [address], [place] [phone] Leela Salgado MD 05/20/2024 Patient Outreach [facility] [address] [place] [address] Yasmine Mao MD Pre-visit Planning ([facility] screening completed on 02/26/2024) from Last 3 Months Immunizations Name Administration Dates Next Due Hep B, adult 02/06/2017,09/29/2016,05/26/2016 Influenza injectable quadriv alent IIV4 with preservative 06/01/2018,05/26/2016 Influenza injectable quadriv alent preservative free 09/23/2021,04/25/2019 Influenza, IIV3, injectable 08/21/2015, 1 Influenza, Split (incl. arina fied surface antigen) 04/16/2012 Pfizer Covid-19 Vaccine 12+ 02/26/2021, 1 Pneumococcal Polysaccharide PPSV23 02/25/2008 TD (adult), 2 Lf tetanus tox oid, preservative free, adsorbed 02/25/2008 Tdap 12/10/2015,07/17/2014 Social History Tobacco Use Types Packs/Day Years Used Date Smoking Tobacco: Never Passive Smoke Exposure: Past Smokeless Tobacco: Never Tobacco Cessation:Counseling Given: Not Answered Alcohol Use Standard Drinks/Week Comments Never 0 [...] Orientation Straight 05/26/2022 10 :16 AM EDT Last Filed Vital Signs Vital Sign Reading Time Taken Comments Blood Pressure 167/84 05/30/2024 9:36 AM EST Pulse 80 05/30/2024 9:36 AM EST Temperature 36.5 ??C (97.7 ??F) 05/30/2024 9:36 AM ES T Respiratory Rate 18 05/30/2024 9:36 AM EST Oxygen Saturation 98% 02/26/2024 10:08 AM EDT Inhaled Oxygen Concentration - - Weight 76.7 kg (169 lb) 05/30/2024 9:36 AM EST Height 149.9 cm (4' 11 ) 05/30/2024 9:36 AM EST Body Mass Index 34.13 05/30/2024 9:36 AM EST Plan of Treatment Health Maintenance Due Date Last Done Comments Alcohol/Substance Use Screening 1994 Family Planning (PISQ) 1997 Hepatitis A Vaccines (1 of 2 - Risk 2-dose series) 2001 COVID-19 Vaccine (3 - season) 2024 02/26/2021, 02/06/2021 Influenza Vaccine (#1) 2024 2, 04/25/2019, 06/01/2018, Additional history exists Mammogram 08/10/2024 08/10/2023, 07/27, 08/08/2022, Additional history exists Cervical Cancer Screening 11/24/2024 HPV/Cotest 11/24/2024 11/25/2019 Pap Smear 11/24/2024 11/25/2019 Depression Screening 02/25/2025 02/26/2024, 02/26/20 24 SDOH Screening 02/25/2025 02/26/2024 Tobacco Screening 06/09/2025 06/09/2024 DTaP/Tdap/Td Vaccines (3 - Td or Tdap) 12/09/2025 12/10/2015, 07/17/2014, 02/25/2008 Lipid Panel 02/25/2029 02/26/2024, 03/27, 10/23/2020 Zoster Vaccines (1 of 2) 2032 RSV Patients and Patients Aged 60 years or older (1 - 1-dose 75+ series) 2057 Pneumococcal Vaccine: Pediatrics (0 to 5 Years) and At-Risk Patients (6 to 64 Years) Aged Out 02/25/2008 No longer eligible based on patient's age to complete this topic Hepatitis B Vaccines Completed 02/06/2017, 09/29/2016, 05/26/2016 HIV Screening Completed 05/30/2024, 08/09/2020 Hepatitis C Screening Completed 05/30/2024, 021 HIB Vaccines Aged Out No longer eligi ble based on patient's age to complete this topic HPV Vaccines Aged Out No longer eligi ble based on patient's age to complete this topic IPV Vaccines Aged Out No longer eligi ble based on patient's age to complete this topic Meningococcal Vaccine Aged Out No dave aixa eligible based on patient's age to complete this topic RSV under 20 months Aged Out No longe r eligible based on patient's age to complete this topic Rotavirus Vaccines Aged Out No longer eligible based on patient's age to complete this topic Procedures Procedure Name Priority Date/Time Associated Diagnosis Comments HEPATITIS B SURFACE ANTIGEN, EIA Routine 05/30/2024 10:32 AM EST HIV 1/2 ANTIGEN/ANTIBODY, FOURTH GENERATION W/RFL Routine 05/30/2024 10:32 AM EST HEPATITIS C ANTIBODY Routine 05/30/2024 10:32 AM EST SYPHILIS SCREEN Routine 05/30/2024 10:32 AM EST CBC WITH AUTO DIFFERENTIAL Routine 05/30/2024 10:32 AM EST Essential thrombocytosis (CMS/HCC) COMPREHENSIVE METABOLIC PANEL Routine 05/30/2024 10:32 AM EST Essential hypertension TSH W/REFLEX TO FT4 Routine 05/30/2024 1 0:32 AM EST Class 1 obesity with serious comorbidity and body mass index (BMI) of 34.0 to 34.9 in adult, unspecified obesity type LIPID PANEL WITH REFLEX TO DIRECT LDL Routine 02/26/2024 10:43 AM EDT Other chest pain Essential hypertension BI MAMMOGRAM SCREENING TOMOSYNTHESIS BILATERAL Routine 08/10/2023 9:57 AM EST HM PAP/HPV Routine 11/25/2019 from Last 3 Months or Most Recently Relevant to Health Maintenance Results * Syphilis Screen (05/30/2024 10:32 AM EST) Syphilis Screen Nonreactive Nonreactive [facility] 05/30/2024 10:3 2 AM EST 05/30/2024 11:19 AM EST us Generic External Data Provider LAB BLOOD ORDERAB LES Final Result Performing Organization Address [facility] Co de Phone Number [facility] [address] [place] [phone] * Hepatitis C Ab (05/30/2024 10:32 AM EST) Pathologist [facility] Hepatitis C Antibody Nonreactive Nonreactive [facility] Comment:Antibodies to HCV no t detected; does not exclude early acuteHCV infection. 05/30/2024 10:3 2 AM EST 05/30/2024 11:19 AM EST Generic External Data Provider LAB BLOOD ORDERAB LES Final Result Performing Organization Address [facility] Co de Phone Number [facility] [address] [place] [phone] * TSH W/Reflex to FT4 (05/30/2024 10:32 AM EST) Pathologist [facility] TSH reflex Free T4 1.77 0.32 - 4.0 uIU/mL [facility] Blood Venous blood specimen / Unknown 05/30/2024 10:32 AM EST 05/30/2024 11:19 AM EST us Yasmine Mao MD LAB BLOOD ORDERABLES Final Res ult Performing Organization Address [facility] Co de Phone Number [facility] [address] [place] [phone] * (ABNORMAL) CBC auto differential (05/30/2024 10:32 AM EST) Pathologist [facility] White Blood Count 7.7 4.8 - 10.8 X10*3/uL [facility] Red Blood Count 4.16(L) 4.20 - 5.50 X10*6/uL [facility] Hemoglobin 12.2 12.0 - 16.0 g/dl [facility] Hematocrit 37.0 37.0 - 47.0 % [facility] Mean Corpuscular Volume 88.9 80.0 - 98.0 fL [facility] Mean Corpuscular Hemoglobin 29.3 27.0 - 33.0 pg [facility] Mean Corpuscular HGB Conc 33.0 31.0 - 35.0 g/dl [facility] Red Cell Distribution Width 12.4 11.0 - 16.0 % [facility] Platelet Count 442(H) 160 - 400 X10*3/uL [facility] Mean Platelet Volume 10.1 9.4 - 12.3 fL [facility] Neutrophils Percent Auto 58.4 45 - 73 % [facility] Imm Gran Pct Auto 0.4 0.0 - 0.4 % [facility] Lymphocytes Percent Auto 32.1 20 - 40 % [facility] Monocytes Percent Auto 5.1 2 - 11 % [facility] Eosinophils Percent Auto 2.8 0 - 4 % [facility] Basophils Percent Auto 1.2 0 - 2 % [facility] NRBC Pct Auto 0.0 0.0 - 0.2 /100WBC [facility] Neutrophils Absolute Auto 4.5 2.0 - 8.3 x10*3/uL [facility] Imm Gran Abs Auto 0.03 0.00 - 0.03 X10*3/uL [facility] Lymphocytes Absolute Auto 2.5 1.2 - 4.9 X10*3/uL [facility] Monocytes Absolute Auto 0.4 0.1 - 1.2 X10*3/uL [facility] Eosinophils Absolute Auto 0.2 0.0 - 0.4 X10*3/uL [facility] Basophils Absolute Auto 0.1 0.0 - 0.2 X10*3/uL [facility] NRBC Abs Auto 0.000 0.0 - 0.012 X10*3/uL [facility] Blood Venous blood specimen / Unknown 05/30/2024 10:32 AM EST 05/30/2024 11:36 AM EST us Yasmine Mao MD LAB BLOOD ORDERABLES Final Res ult [facility] [address] [place] [phone] * Hepatitis B surface antigen, EIA (05/30/2024 10:32 AM EST) Hepatitis B Surface Ag Negative Negative [facility] 05/30/2024 10:3 2 AM EST 05/30/2024 11:19 AM EST us Generic External Data Provider LAB BLOOD ORDERAB LES Final Result Performing Organization Address [facility] de Phone Number [facility] [address] [place] [phone] * HIV-1/2 Antigen and Antibodies, Fourth Generation, with Reflexes (05/30/2024 10:32 AM EST) HIV AB/AG Nonreactive Nonreactive [facility] Comment:HIV-1 p24 Ag and/or HIV-1/HIV-2 Ab not detected.A test result that is nonreactive does not exclude thepossibility of exposure to or infection with HIV-1 and/orHIV-2. Nonreactive results in this assay for individualswith prior exposure to HIV-1 and/or HIV-2 may be due toantigen and antibody levels that are below the limit ofdetection of this assay.The [employer] HIV Ag/Ab Combo assay result andsupplemental assay results should be interpreted inconjunction with the patient's clinical presentation,history and other laboratory results. If the results areinconsistent with clinical evidence, additional testing issuggested to confirm the result. 05/30/2024 10:3 2 AM EST 05/30/2024 11:19 AM EST us Generic External Data Provider LAB BLOOD ORDERAB LES Final Result Performing Organization Address [facility] Co de Phone Number [facility] [address] [place] [phone] * Comprehensive Metabolic Panel (05/30/2024 10:32 AM EST) Sodium 140 135 - 145 mmol/L [facility] Potassium 4.4 3.3 - 5.1 mmol/L [facility] Chloride 107 96 - 108 mmol/L [facility] Carbon Dioxide 24 22 - 29 mmol/L [facility] Anion Gap 13 12 - 20 [facility] Urea Nitrogen (BUN) 12 9 - 16 mg/dL [facility] Creatinine, Serum 0.58 0.5 - 1.4 mg/dL [facility] Estimated Glomerular Filt Rate >60 [facility] Comment:NOTE: For -Am erican individuals, multiply the result by 1.210.Chronic Kidney Disease: Estimated GFR < 60 mL/min/1.52y8Aaihdy Kidney Disease: Estimated GFR < 15 mL/min/1.73m2 Glucose 83 60 - 115 mg/dL [facility] Calcium 8.9 8.4 - 10.2 mg/dL [facility] Bilirubin, Total 0.3 0.0 - 1.0 mg/dL [facility] Aspartate Amino Transferase 21 5 - 31 U/L [facility] Alanine Aminotransferase 25 0 - 31 U/L [facility] Total Protein 7.0 6.5 - 8.0 g/dL [facility] Albumin Level 3.9 3.5 - 5.0 g/dL [facility] Alkaline Phosphatase 66 39 - 117 U/L [facility] Blood Venous blood specimen / Unknown 05/30/2024 10:32 AM EST 05/30/2024 11:19 AM EST us Yasmine Mao MD LAB BLOOD ORDERABLES Final Res ult [facility] [address] [place] [phone] * (ABNORMAL) Lipid Panel with Reflex to Direct LDL (02/26/2024 10:43 AM EDT) Triglycerides 109 <150 mg/dL [facility] Comment:Desirable Triglyceri de: less than 150 mg/dLBorderline High Triglyceride 150-199 mg/dLHigh Triglyceride: 200-499 mg/dLVery High Triglyceride: greater than or equal to 5OO mg/dL Cholesterol 183 <200 mg/dL [facility] Comment:Desirable Cholestero l: less than 200 mg/dLBorderline High Cholesterol: 200-239 mg/dLHigh Cholesterol: greater than 239 mg/dL LDL Cholesterol Calculated 105(H) <100 mg/dL [facility] Comment:Desirable LDL: less than 100 mg/dLNear Optimal/Above Optimal LDL: 110- 129 mg/dLBorderline High LDL: 130-159 mg/dLHigh LDL: 160-189 mg/dLVery High LDL: greater than or equal to 190 mg/dL HDL Cholesterol 57 >40 mg/dL [facility] Comment:Desirable HDL: great er than 40 mg/dL Note: This HDL assay may give artificially low results in patients with liver disease. Blood 02/26/2024 10:4 3 AM EDT 02/26/2024 12:59 PM EDT us Leela Cuello MD LAB BLOOD ORDERABLES Final Result [facility] [address] [place] [phone] * BI Mammogram Screening Tomosynthesis Bilateral (08/10/2023 9:57 AM EST) Anatomical Region Laterality Modality Breast Bilateral Mammography 08/10/2023 9:57 AM EST Narrative 08/28/2023 2:02 PM EST ? [facility] ? [address] ?[place] [address] ? Mammography Report ? Signed ? Patient: Rebolledo,Gayathri ?MR#: [id number] ? : 1980 ?Acct:[id number] ? Age/Sex: 43 / F ?ADM Date: 01/15/24 ? Loc: HO.MAMMO ? Attending Dr: Yasmine Mao MD ? Ordering Physician: Yasmine Mao ?Results: 1Negative ? Date of Service: 08/10/23 ?Follow Up: 1 Year From Orig ?? inal Mammogram ? Procedure(s): MM tomosynthesis screening BI ?? Accession Number(s): [id number] ? cc: Yasmine Mao ? EXAMINATION: ?? MM SCREENING DIGITAL BREAST TOMOSYNTHESIS, BILATERAL ? CLINICAL INFORMATION: ? Screening. Asymptomatic. ? COMPARISON: ?? Mammography: This study is compared with prior exams dating back to ?? 2020. ? TECHNIQUE: ?? Digital breast tomosynthesis is performed in both the craniocaudal and ?? mediolateral oblique views along with computer-aided detection (CAD). ?? Synthesized 2D images are generated from the tomosynthesis. ? FINDINGS: ?? There are scattered areas of fibroglandular density (ACR BI-RADS breast ?? composition Category b). ? There are no significant masses, abnormal calcifications, or other ?? abnormalities. ? MM/MM tomosynthesis screening BI ?? IMPRESSION: ?? No mammographic evidence of malignancy. ? ASSESSMENT: ? BI-RADS BI-RADS 1 - Negative ? RECOMMENDATION: ?? Routine annual mammography screening. ? 1 year F/U ? This examination should not preclude the clinical evaluation of a ?? suspicious palpable abnormality. ? This patient's information was entered into a reminder system with a ?? target due date for their next mammogram. ? Dictated By: ?Caterina Del Castillo MD ? Signed By: ?<Electronically signed by Caterina Del Castillo MD in OV> ? 08/28/238 ? DD/ 6 ? TD/TT: ? Catheter Finisher And Inspector: ? Procedure Note Donotuseinterpreter, [facility] - [facility] [address] [place] [address] Mammography Report Signed Patient: Luis Rebolledo#: [id number] : 1980Acct:[id number] Age/Sex: 43 / FADM Date: 08/10/23 Loc: HO.MAMMO Attending Dr: Yasmine Mao MD Ordering Physician: Justo Maoults: 1Negative Date of Service: 08/10/23Follow Up: 1 Year From Orig inal Mammogram Procedure(s): MM tomosynthesis screening BI Accession Number(s): [id number] cc: Yasmine Mao EXAMINATION: MM SCREENING DIGITAL BREAST TOMOSYNTHESIS, BILATERAL CLINICAL INFORMATION: Screening. Asymptomatic. COMPARISON: Mammography: This study is compared with prior exams dating back to 2020. TECHNIQUE: Digital breast tomosynthesis is performed in both the craniocaudal and mediolateral oblique views along with computer-aided detection (CAD). Synthesized 2D images are generated from the tomosynthesis. FINDINGS: There are scattered areas of fibroglandular density (ACR BI-RADS breast composition Category b). There are no significant masses, abnormal calcifications, or other abnormalities. MM/MM tomosynthesis screening BI IMPRESSION: No mammographic evidence of malignancy. ASSESSMENT: BI-RADS BI-RADS 1 - Negative RECOMMENDATION: Routine annual mammography screening. 1 year F/U This examination should not preclude the clinical evaluation of a suspicious palpable abnormality. This patient's information was entered into a reminder system with a target due date for their next mammogram. Dictated By: Caterina Del Castillo MD Signed By: <Electronically signed by Caterina Del Castillo MD in OV> 08/28/23 1358 DD/ 0957 TD/TT: Catheter Finisher And Inspector: Yasmine Mao MD IMG BI PROCEDURES Final Result * Hm Pap Smear (11/25/2019) Pap Negative for intraephithelial lesion or malignancy Negative for intraephithelial lesion or malignancy, Other HPV Undetected Undetected, Indeterminate, Quantitative, Not Detected Historical Provider HEALTH MAINTENANCE Final Result from Last 3 Months or Most Recently Relevant to Health Maintenance Insurance [employer] C3 Care Teams Central Supply Assistant Relationship Specialty Start Date End Date Yasmine Mao MD [address] [place] [phone] PCP - General Family Medicine 10/30/20
--- OUTSIDE RECORDS SUMMARY | 2024-08-19 16:04 | XMS_ITS | Encounter Summary ---
Author Organization [employer] Address [address] [place] [address] Care Team Providers Care Dehydrator Operator Name Role Phone Yasmine Mao MD Primary Care Provider [phone] Encounter Details Date Type Department Care Team (Late st Contact Info) Description 09/10/2022 Orders Only [facility] MEDICINE [address] [place], [place] [phone] Yasmine Mao MD [address] [place], [place] [phone] Essential hypertension (Primary Dx); Other specified hypothyroidism Social History Tobacco Use Types Packs/Day Years Used Date Smoking Tobacco: Never Smokeless Tobacco: Never Alcohol Use Standard Drinks/Week Comments Never 0 (1 standard drink = 0.6 oz pur e alcohol) Depression Answer Date Recorded Patient Health Questionnaire-2 Score 0 07/18/2022 Comments Unknown Sex and Gender Information Value Date Recorded Sex Assigned at Female 05/26/2022 10:16 AM EDT Legal Sex Female 10:16 AM EDT Gender Identity Female 05/26/2022 10:16 AM EDT Sexual Orientation Straight 05/26/2022 10 :16 AM EDT COVID-19 Exposure Response Date Recorded In the last 10 days, have yo u been in contact with someone who was confirmed or suspected to have Coronavirus/COVID-19? No / Unsure 09/09/2022 5:19 PM EST documented as of this encounter Miscellaneous Notes * Result Encounter Note - Yasmine Mao MD - 09/10/2022 2:28 PM EST Please call patient and tell her that her thyroid hormone is perfectly controlled, she is not anemic and her platelets are 414, which is slightly high, but consistent with what her platelets have been in the past. Thank you documented in this encounter Plan of Treatment Not on file documented as of this encounter Procedures Procedure Name Priority Date/Time Associated Diagnosis Comments TSH W/REFLEX TO FT4 Routine 09/16/2022 1 2:26 PM EST Other specified hypothyroidism CBC WITH AUTO DIFFERENTIAL Routine 09/16/2022 12:26 PM EST Essential hypertension documented in this encounter Results * (ABNORMAL) CBC auto differential (09/16/2022 12:26 PM EST) White Blood Cell Count 8.3 3.8 - 10.8 Thousand/ uL [facility] Red Blood Cell Count 4.20 3.80 - 5.10 Million/u L [facility] Hemoglobin 12.6 11.7 - 15.5 g/dL [facility] Hematocrit 37.0 35.0 - 45.0 % [facility] MCV 88.1 80.0 - 100.0 fL [facility] MCH 30.0 27.0 - 33.0 pg [facility] MCHC 34.1 32.0 - 36.0 g/dL [facility] RDW 12.1 11.0 - 15.0 % [facility] Platelet Count 414(H) 140 - 400 Thousand/ uL [facility] MPV 10.5 7.5 - 12.5 fL [facility] Absolute Neutrophils 4,789 1,500 - 7,800 cells/uL [facility] Absolute Lymphocytes 2,689 850 - 3,900 cells/uL [facility] Absolute Monocytes 465 200 - 950 cells/uL [facility] Absolute Eosinophils 291 15 - 500 cells/uL [facility] Absolute Basophils 66 0 - 200 cells/uL [facility] Neutrophils 57.7 % [facility] Lymphocytes 32.4 % [facility] Monocytes 5.6 % [facility] [place] [facility] Eosinophils 3.5 % [facility] Basophils 0.8 % [facility] Blood Venous blood specimen / Unknown 09/16/2022 12:26 PM EST 09/16/2022 12:27 PM EST Narrative [facility] - 09/17/2022 5:01 AM EST FASTING:NO FASTING: NO us Yasmine Mao MD LAB BLOOD ORDERABLES Final Res ult [facility] [address], [place] [address] [facility] [address] [facility], ([address]) [place] [address] * TSH W/Reflex to FT4 (09/16/2022 12:26 PM EST) TSH w/Reflex to FT4 2.33 mIU/L [facility] Comment: ?Reference Range ?> or = 20 Years ??0.40-4.50 ? Ranges ?First trimester ?0.26-2.66 ?Second trimester ?? 0.55-2.73 ?Third trimester ?0.43-2.91 09/16/2022 12:2 6 PM EST 09/16/2022 12:27 PM EST Narrative [facility] - 09/17/2022 5:01 AM EST FASTING:NO FASTING: NO us Yasmine Mao MD LAB BLOOD ORDERABLES Final Res ult [facility] [address] [facility], [place] [address] [facility] [address] [facility], ([address]) [place] [address] documented in this encounter Visit Diagnoses Diagnosis Essential hypertension- Primary Unspecified essential hypertension Other specified hypothyroidism documented in this encounter Care Teams Dehydrator Operator Relationship Specialty Start Date End Date Yasmine Mao MD [address] [place] [address] PCP - General Family Medicine 10/30/20 documented as of this encounter
--- OUTSIDE RECORDS SUMMARY | 2024-08-19 16:04 | XMS_ITS | Clinical Summary ---
Author Organization [facility] Address [address] [place] [address] Phone Care Team Providers Care Home Appliance Tech Name Role Phone Yasmine Mao MD Primary Care Provider [phone] Allergies Active Allergy Reactions Criticality Noted Date Comments Oxycodone Nausea And Vomiting High 04/07/2013 Other reaction(s): Nausea/Vomiting Oxycodone-Acetaminophe n 11/06/2022 Medications No known medications Active Problems No known active problems Encounters Date Type Department Care Team Description 06/12/2024 7:30 PM EST - 06/12/2024 10:23 PM EST Emergency [facility] Emergency [address] [place] [address] Acute nonintractable headache, unspecified headache type (Primary Dx) Discharge Disposition: Home or Self Care from Last 3 Months Social History Tobacco Use Types Packs/Day Years Used Date Smoking Tobacco: Never Assessed Sex and Gender Information Value Date Recorded Sex Assigned at Not on file Gender Identity Not on file Sexual Orientation Not on file Job Start Date Occupation Industry Not on file Not on file Not on file Obstetrics History Last Filed Vital Signs Vital Sign Reading Time Taken Comments Blood Pressure 125/65 06/12/2024 10:08 PM EST Pulse 60 06/12/2024 10:08 PM EST Temperature 36.8 ??C (98.2 ??F) 06/12/2024 10:[address] Respiratory Rate 16 06/12/2024 10:08 PM EST Oxygen Saturation 99% 06/12/2024 10:08 PM EST Inhaled Oxygen Concentration - - Weight 73 kg (161 lb) 06/12/2024 7:40 PM EST Height 149.9 cm (4' 11 ) 06/12/2024 7:40 PM EST Body Mass Index 32.52 06/12/2024 7:40 PM EST Plan of Treatment Health Maintenance Due Date Last Done Comments Breast Cancer Screening 1982 Hepatitis A Vaccines (1 of 2 - Risk 2-dose series) 2001 Cervical Cancer Screening: Pap Smear 2003 Pneumococcal Vaccine: Pediatrics (0 to 5 Years) and At-Risk Patients (6 to 64 Years) (2 of 2 - PCV) 02/24/2009 02/25/2008 COVID-19 Vaccine (3 - Pfizer risk series) 03/26/2021 02/26/2021, 02/06/2021 Cholesterol Screening (Lipid Panel) 08/25/2023 Hepatitis C Screening 08/25/2023 Social Influencers of Health Screening 08/25/2023 Influenza Vaccine (#1) 2024 , 04/25/2019, 06/01/2018, Additional history exists Depression Screening 02/25/2025 02/26/2024 Hypertension/CHF/CAD Annual BMP Blood Test 05/30/2025 05/30/2024 DTaP,Tdap,and Td Vaccines (4 - Td or Tdap) 12/09/2025 12/10/2015, 07/17/2014, 02/25/2008 Hepatitis B Vaccines Completed 02/06/2017, 09/29/2016, 05/26/2016 HIV Screening Completed 05/30/2024 HIB Vaccines Aged Out No longer eligi ble based on patient's age to complete this topic HPV Vaccines Aged Out No longer eligi ble based on patient's age to complete this topic IPV Vaccines Aged Out No longer eligi ble based on patient's age to complete this topic MMR Vaccines Aged Out No longer eligi ble based on patient's age to complete this topic Meningococcal ACWY Vaccine Aged Out N o longer eligible based on patient's age to complete this topic RSV Immunization Patients Under 20 months Aged Out No longer eligible based on patient's age to complete this topic Varicella Vaccines Aged Out No longer eligible based on patient's age to complete this topic Procedures Procedure Name Priority Date/Time Associated Diagnosis Comments CT HEAD WO CONTRAST STAT 06/12/2024 8 :25 PM EST from Last 3 Months Results * CT Head wo Contrast (06/12/2024 8:25 PM EST) Anatomical Region Laterality Modality Head and Neck Computed Tomogra phy 06/12/2024 8:47 PM EST Impressions 06/12/2024 8:47 PM EST 1. No acute intracranial process. This document has been electronically signed by: Gage Kennedy DO on 06/12/2024 20:47:24 Narrative 06/12/2024 8:[address] head without contrast Comparison: None Findings: No intracranial mass, midline shift, hydrocephalus, or acute hemorrhage. No significant atrophy-like change or white matter disease. The visualized paranasal sinuses and mastoid air cells are normal. The orbits are unremarkable. No skull fracture. Procedure Note Gage Kennedy MD - 06/12/2024 CT head without contrast Comparison: None Findings: No intracranial mass, midline shift, hydrocephalus, or acute hemorrhage. No significant atrophy-like change or white matter disease. The visualized paranasal sinuses and mastoid air cells are normal. The orbits are unremarkable. No skull fracture. IMPRESSION: 1. No acute intracranial process. This document has been electronically signed by: Gage Kennedy DO on 06/12/2024 20:47:[address] PROCEDURES from Last 3 Months Care Teams Home Appliance Tech Relationship Specialty Start Date End Date Yasmine Mao MD [address] [place] [address] PCP - General Perinatal Technician 06/12/24
--- OUTSIDE RECORDS SUMMARY | 2024-08-19 16:04 | XMS_ITS | Encounter Summary ---
Author Organization [employer] Address [address] [facility] [place] [address] Care Team Providers Care Aircraft Technician Name Role Phone Yasmine Mao MD Primary Care Provider [phone] Encounter Details Date Type Department Care Team (Latest Contact Info) Description 09/30/2018 Abstract [facility] Dental, Provider, DDS Social History Tobacco Use Types Packs/Day Years Used Date Smoking Tobacco: Never Assessed Comments Unknown Sex and Gender Information Value [...] on filedocumented in this encounter Care Teams Aircraft Technician Relationship Specialty Start Date End Date Yasmine Mao MD [address] [place] [address] PCP - General Family Medicine 10/30/20 documented as of this encounter
--- OUTSIDE RECORDS SUMMARY | 2024-08-19 16:04 | XMS_ITS | Encounter Summary ---
Author Organization [employer] Address [address] [address] [facility] [address] [place] [address] Care Team Providers Care At Risk Specialist Name Role Phone Yasmine Mao MD Primary Care Provider [phone] Reason for Visit * Reason Onset Date Comments Referral 01/04/2024 Encounter Details Date Type Department Care Team (Late st Contact Info) Description 01/04/2024 Telephone [facility] MEDICINE [address] [place] [address] Yasmine Mao MD [address] [place], [place] [phone] Referral Social History Tobacco Use Types Packs/Day Years [...] encounter Miscellaneous Notes * Telephone Encounter - Dee Dee Harden - 01/04/2024 11:35 AM EDT Tc from pt requesting [facility] referral to be re faxed to office. States office has not received referral. documented in this encounter Plan of Treatment Not on file documented as of this encounter Visit Diagnoses Not on filedocumented in this encounter Care Teams At Risk Specialist Relationship Specialty Start Date End Date Yasmine Mao MD [address] [place] [address] PCP - General Family Medicine 10/30/20 documented as of this encounter
--- OUTSIDE RECORDS SUMMARY | 2024-08-19 16:04 | XMS_ITS | Encounter Summary ---
Author Organization [employer] Address [address] [place] [address] Care Team Providers Care Manager General Name Role Phone Yasmine Mao MD Primary Care Provider [phone] Encounter Details Date Type Department Care Team (Late st Contact Info) Description 07/18/2022 Orders Only [facility] [address] [place] [address] Ana Phelan LPN Social History Tobacco Use Types Packs/Day Years [...] suspected to have Coronavirus/COVID-19? No / Unsure 07/18/2022 11:12 AM EST documented as of this encounter Plan of Treatment Not on file documented as of this encounter Procedures Procedure Name Priority Date/Time Associated Diagnosis Comments BI MAMMOGRAM SCREENING TOMOSYNTHESIS BILATERAL Routine 08/08/2022 9:30 AM EST documented in this encounter Results * BI Mammogram Screening Tomosynthesis Bilateral (08/08/2022 9:30 AM EST) Anatomical Region Laterality Modality Breast Bilateral Mammography 08/08/2022 9:30 AM EST Narrative 08/11/2022 12:55 PM EST ? [facility] [place] ? [address] ?[place] [address] ? Mammography Report ? Signed ? Patient: Rebolledo,Gayathri ?MR#: [id number] ? : 1980 ?Acct:[id number] ? Age/Sex: 42 / F ?ADM Date: 08/08/22 ? Loc: HO.MAMMO ? Attending Dr: Yasmine Mao MD ? Ordering Physician: Yasmine Mao ?Results: 1Negative ? Date of Service: 08/08/22 ?Follow Up: 1 Year From Orig ?? inal Mammogram ? Procedure(s): MM tomosynthesis screening BI ?? Accession Number(s): [id number] ? cc: Yasmine Mao ? EXAMINATION: ?? MM SCREENING DIGITAL BREAST TOMOSYNTHESIS, BILATERAL ? CLINICAL INFORMATION: ? Screening. Asymptomatic. ? The lifetime risk of breast cancer based on the Tyrer-Cuzick Model is ?? 8%. ? COMPARISON: ?? Mammography: 07/11/2021, left breast ultrasound 07/11/2021 ? TECHNIQUE: ?? Digital breast tomosynthesis is performed in both the craniocaudal and ?? mediolateral oblique views along with computer-aided detection (CAD). ?? Synthesized 2D images are generated from the tomosynthesis. ? FINDINGS: ?? There are scattered areas of fibroglandular density (ACR BI-RADS breast ?? composition Category b). ? There are no significant masses, abnormal calcifications, or other ?? abnormalities. ??Parenchymal pattern is similar to prior exam. No ?? architectural abnormality. The axilla and skin contours are ?? unremarkable. No significant changes. ? MM/MM tomosynthesis screening BI ?? IMPRESSION: ?? No mammographic evidence of malignancy. ? ASSESSMENT: ? BI-RADS 1: Negative ? RECOMMENDATION: ?? Routine annual mammography screening. ? This patient's information was entered into a reminder system with a ?? target due date for their next mammogram. ? Dictated By: ?Bartolo Bsihop MD ? Signed By: ?<Electronically signed by Bartolo Bishop MD in OV> ?08/11/22 1252 ? DD/ ? TD/TT: ? Top Stitcher: RODRIGUEZ ? Procedure Note [email or web address], Image - 08/11/2022 [facility] [address] [place] [address] Mammography Report Signed Patient: Luis Rebolledo#: [id number] : 1980Acct:[id number] Age/Sex: 42 / FADM Date: 08/08/22 Loc: TISHAO Attending Dr: Yasmine Mao MD Ordering Physician: Justo Maoults: 1Negative Date of Service: 08/08/22Follow Up: 1 Year From Orig inal Mammogram Procedure(s): MM tomosynthesis screening BI Accession Number(s): [id number] cc: Yasmine Mao EXAMINATION: MM SCREENING DIGITAL BREAST TOMOSYNTHESIS, BILATERAL CLINICAL INFORMATION: Screening. Asymptomatic. The lifetime risk of breast cancer based on the Tyrer-Cuzick Model is 8%. COMPARISON: Mammography: 07/11/2021, left breast ultrasound 07/11/2021 TECHNIQUE: Digital breast tomosynthesis is performed in both the craniocaudal and mediolateral oblique views along with computer-aided detection (CAD). Synthesized 2D images are generated from the tomosynthesis. FINDINGS: There are scattered areas of fibroglandular density (ACR BI-RADS breast composition Category b). There are no significant masses, abnormal calcifications, or other abnormalities. Parenchymal pattern is similar to prior exam. No architectural abnormality. The axilla and skin contours are unremarkable. No significant changes. MM/MM tomosynthesis screening BI IMPRESSION: No mammographic evidence of malignancy. ASSESSMENT: BI-RADS 1: Negative RECOMMENDATION: Routine annual mammography screening. This patient's information was entered into a reminder system with a target due date for their next mammogram. Dictated By: Bartolo Bishop MD Signed By: <Electronically signed by Bartolo Bishop MD in OV> 08/11/22 1252 DD/ 0930 TD/TT: Top Stitcher: RODRIGUEZ [facility] External Provider IMG BI PROCEDURES Edited Result - Final documented in this encounter Visit Diagnoses Not on filedocumented in this encounter Care Teams Manager General Relationship Specialty Start Date End Date Yasmine Mao MD [address] [place] [address] PCP - General Family Medicine 10/30/20 documented as of this encounter
== END 2024-08-19 14:37 | disposition home or self-care (01) ==
LOC: HO.MAMMO 14:36
PROVIDERS: PCP General Practice; Visit Provider General Practice
DX: Z12.31 Encounter for screening mammogram for malignant neoplasm of breast (principal)
CPT/HCPCS: 77063; 77067

== ENCOUNTER → 2024-08-19 14:45 | Outpatient (BNV) | payer MEDICAID, SELFPAY | PROVIDERS: PCP General Practice; Visit Provider Internal Medicine | DX: Z12.31 Encounter for screening mammogram for malignant neoplasm of breast (principal) | CPT/HCPCS: 77063; 77067 ==

== ENCOUNTER 2024-10-24 11:18 | Outpatient (REF) | payer MEDICAID, SELFPAY ==
[2024-10-24 12:54] LABS: Estimated Average Glucose 108 mg/dL; Hemoglobin A1C 115.7412 umol/L; Hemoglobin A1c % 5.4 % (<6.0)
--- OUTSIDE RECORDS SUMMARY | 2024-10-24 12:57 | XMS_ITS | Encounter Summary ---
Author Organization [employer] Address [address] [facility] [facility] [address] [place] [address] Care Team Providers Care Manpower Development Advisor Name Role Phone Yasmine Mao MD Primary Care Provider [phone] Encounter Details Date Type Department Care Team (Late st Contact Info) Description 09/10/2022 Orders Only [facility] MEDICINE [address] [place], [place] [phone] Yasmine Mao MD [address] [place], [place] [phone] Essential hypertension (Primary Dx); Other specified hypothyroidism [...] Count 8.3 3.8 - 10.8 Thousand/ uL [facility] Red Blood Cell Count 4.20 3.80 - 5.10 Million/u L [facility] Hemoglobin 12.6 11.7 - 15.5 g/dL [facility] Hematocrit 37.0 35.0 - 45.0 % [facility] MCV 88.1 80.0 - 100.0 fL [facility] MCH 30.0 27.0 - 33.0 pg [facility] MCHC 34.1 32.0 - 36.0 g/dL [facility] RDW 12.1 11.0 - 15.0 % [facility] Platelet Count 414(H) 140 - 400 Thousand/ uL [facility] MPV 10.5 7.5 - 12.5 fL [facility] Absolute Neutrophils 4,789 1,500 - 7,800 cells/uL [facility] Absolute Lymphocytes 2,689 850 - 3,900 cells/uL [facility] Absolute Monocytes 465 200 - 950 cells/uL [facility] Absolute Eosinophils 291 15 - 500 cells/uL [facility] Absolute Basophils 66 0 - 200 cells/uL [facility] Neutrophils 57.7 % [facility] Lymphocytes 32.4 % [facility] Monocytes 5.6 % [facility] [place] [facility] Eosinophils 3.5 % [facility] Basophils 0.8 % [facility] Blood Venous blood specimen / Unknown 09/16/2022 12:26 PM EST 09/16/2022 12:27 PM EST Narrative [facility] - 09/17/2022 5:01 AM EST FASTING:NO FASTING: NO us Yasmine Mao MD LAB BLOOD ORDERABLES Final Res ult [facility] [address], [place] [address] [facility] 200 [facility], ([address]) [place] [address] * TSH W/Reflex to FT4 (09/16/2022 12:26 PM EST) TSH w/Reflex to FT4 2.33 mIU/L [facility] Comment: ?Reference Range ?> or = 20 Years ??0.40-4.50 ? Ranges ?First trimester ?0.26-2.66 ?Second trimester ?? 0.55-2.73 ?Third trimester ?0.43-2.91 09/16/2022 12:2 6 PM EST 09/16/2022 12:27 PM EST Narrative [facility] - 09/17/2022 5:01 AM EST FASTING:NO FASTING: NO us Yasmine Mao MD LAB BLOOD ORDERABLES Final Res ult [facility] [address] [facility], [place] [address] [facility] [address] [facility], ([address]) [place] [address] documented in this encounter Visit Diagnoses Diagnosis Essential hypertension- Primary Unspecified essential hypertension Other specified hypothyroidism documented in this encounter Care Teams Manpower Development Advisor Relationship Specialty Start Date End Date Yasmine Mao MD [address] [place] [address] PCP - General Family Medicine 10/30/20 documented as of this encounter
--- OUTSIDE RECORDS SUMMARY | 2024-10-24 12:57 | XMS_ITS | Encounter Summary ---
Author Organization [employer] Address [address] [facility] 7t [place] [address] Care Team Providers Care Hvac Instructor Name Role Phone Yasmine Mao MD Primary Care Provider [phone] Reason for Referral * Consultation (Routine) - Closed Specialty Diagnoses / Procedures Referred By Farhat callahan Referred To Contact Obstetrics and Gynecology Diagnoses Screening for cervical cancer Yasmine Mao MD [address] [place] [address] Phone: tel: fax: [address] Phone: tel: fax: Referral ID Status Reason Start Date Expiration Date V isits Requested Visits Authorized [id number] Closed Specialty Services Required 09/29/2023 09/27/2024 1 12 Encounter Details Date Type Department Care Team (Late st Contact Info) Description 09/25/2023 Orders Only [facility] MEDICINE [address] [place] [address] Yasmine Mao MD [address] [place] [phone] Screening for cervical cancer (Primary Dx) Social [...] cervix documented in this encounter Care Teams Hvac Instructor Relationship Specialty Start Date End Date Yasmine Mao MD [address] [place] [address] PCP - General Family Medicine 10/30/20 documented as of this encounter
--- OUTSIDE RECORDS SUMMARY | 2024-10-24 12:57 | XMS_ITS | Clinical Summary ---
Author Organization [facility] Address [address] [place] [address] Phone Care Team Providers Care Rock Duster Name Role Phone Yasmine Mao MD Primary Care Provider [phone] Allergies Active Allergy Reactions Criticality Noted Date Comments Oxycodone Nausea And Vomiting High 04/07/2013 Other reaction(s): Nausea/Vomiting Oxycodone-Acetaminophe n 11/06/2022 Medications No known medications Active Problems No known active problems Social History Tobacco Use Types Packs/Day Years Used Date Smoking Tobacco: Never Assessed Comments Unknown Sex and Gender Information Value Date Recorded Sex Assigned at Not on file Legal Sex Female 6:15 AM EST Gender Identity Not on file Sexual Orientation Not on file Obstetrics History Last Filed [...] Health Screening 08/25/2023 Influenza Vaccine (#1) 2024 2, 04/25/2019, 06/01/2018, Additional history exists Depression Screening [...] patient's age to complete this topic Meningococcal B Vacine Aged Out No lo nger eligible based on patient's age to complete this topic RSV Immunization Patients Under 20 months Aged Out No longer eligible based on patient's age to complete this topic Varicella Vaccines Aged Out No longer eligible based on patient's age to complete this topic Insurance MEDICAID - [place] Care Teams Rock Duster Relationship Specialty Start Date End Date Yasmine Mao MD [address] [place] [address] PCP - General Color Print Inspector 06/12/24
--- OUTSIDE RECORDS SUMMARY | 2024-10-24 12:57 | XMS_ITS | Clinical Summary ---
Author Organization [employer] Address [address] [facility] 7t [place] [address] Care Team Providers Care Auto Job Estimator Name Role Phone Yasmine Mao MD Primary Care Provider Allergies Active Allergy Reactions Criticality Noted Date Comments Oxycodone Nausea And Vomiting High 04/07/2013 Other reaction(s): Nausea/Vomiting Oxycodone-Acetaminophe n 11/06/2022 Medications omega-3 1000 MG capsule capsule Take 1 capsule by mouth in the morning. 2 Active ketoconazole (NIZOral) 2 % shampoo apply by topical route every day to the affected area(s), lather, leave in place for 10 minutes, and then rinse off with water 2 Active meclizine (Antivert) 25 MG tablet Take 1 tablet by mouth if needed in the morning, at noon, and at bedtime for dizziness. 2 Active EPINEPHrine (Epipen) 0.3 MG/0.3ML injection syringe Inject 0.3 mg into the shoulder, thigh, or buttocks 1 (one) time if needed for anaphylaxis. 9 Active escitalopram (Lexapro) 20 MG tablet Take 1 tablet by mouth 1 (one) time each day. Active zolpidem (Ambien) 10 MG tablet Take 1 tablet by mouth at bed time. Active ondansetron (Zofran) 4 MG tabletIndicati ons:Nausea TOME STANFORD TABLETA POR VIA ORAL IF NEEDED IN THE MORNING AND AT BEDTIME FOR NAUSEA 60 tablet 3 Active busPIRone (Buspar) 15 MG tablet Take 15 mg by mouth 3 times daily. 3 Active QUEtiapine (SEROquel) 50 MG tablet Take 50 mg by mouth if needed at bedtime. 3 Active Senna-Time 8.6 MG tablet TOME DOS TABLETAS POR VIA ORAL AL ACOSTARSE CUANDO SEA NECESARIO CONSTIPATION 180 tablet 1 3 Active LORazepam (Ativan) 0.5 MG tablet TAKE 1 TABLET BY MOUTH SINGLE DOSE NEEDED 3 Active hydrocortisone (Proctosol HC) 2.5 % rectal cream INSERT INTO THE RECTUM IN THE MORNING, AT NOON, AND AT BEDTIME IF NEEDED FOR HEMORRHOIDS. 28 g 1 3 Active levothyroxine (Synthroid, Levoxyl) 50 MCG tablet TAKE 1 TABLET BY MOUTH EVERY DAY BEFORE BREAKFAST 90 tablet 3 4 Active cholecalcifero l VITAMIN D (Vitamin D-3) 50 MCG (1999 UT) capsuleIndicat ions:Vitamin D deficiency TAKE 3 CAPSULE BY MOUTH ONCE A DAY AFTER A MEAL 4 Active GaviLyte-G 236 g solution DRINK 240 ML POR V A ORAL EVERY 10 MINUTES 4 Active B Complex Vitamins (vitamin B complex) tabletIndicati ons:Hair loss Take 1 tablet by mouth Once per day. 90 tablet 3 4 Active dextran 70-hypromellos e (artificial tears) 0.1-0.3 % ophthalmic solutionIndica tions:Dry eyes, bilateral Administer 1 drop into both eyes if needed in the morning, at noon, and at bedtime for dry eyes. 15 mL 6 4 025 Active lisinopril-hyd roCHLOROthiazi de 20-25 MG tablet TAKE 1 TABLET BY MOUTH EVERY DAY 90 tablet 3 4 Active amitriptyline (Elavil) 50 MG tabletIndicati ons:Migraine without aura, not refractory TAKE 1 TABLET (50 MG) BY MOUTH AT BEDTIME. TO PREVENT MIGRAINES AND BACK PAIN 90 tablet 3 5 026 Active EPINEPHrine (Epipen) 0.3 MG/0.3ML injection syringe Inject 0.3 mL (0.3 mg) as directed 1 (one) time if needed for anaphylaxis for up to 2 doses. Inject into upper leg. Call 911 after use. 1 each 1 5 Active amoxicillin (Amoxil) 500 MG tablet TOME STANFORD TABLETA POR V A ORAL CADA OCHO HORAS UNTIL GONE 4 Active B Psjdqlg-M-Gjkm c Acid tablet TOME 1 TABLETA POR V A ORAL TODOS LOS D 4 Active Genabio Covid-19 Rapid Test kit as directed 5 Active ibuprofen 800 MG tablet TOME STANFORD TABLETA POR V A ORAL CADA OCHO HORAS CUANDO SEA NECESARIO 4 Active polyvinyl alcohol (Liquifilm Tears) 1.4 % ophthalmic solution PLACE 1 DROP IN EACH EYE THREE TIMES DAILY IN THE MORNING, AT NOON, AND AT BEDTIME NEEDED FOR DRY EYES 4 Active busPIRone (Buspar) 5 MG tablet Take 1 tablet by mouth if needed in the morning and at bedtime for anxiety. 5 Active baclofen (Lioresal) 10 MG tabletIndicati ons:Intermitte nt low back pain Take 1 tablet (10 mg) by mouth if needed in the morning and at bedtime for muscle spasms. 30 tablet 3 4 025 Discontin ued(Thera py completed ) Active Problems Problem Noted Date Diagnosed Date Unwanted fertility 05/31/2024 Overview (05/31/2024): Tried to have BTL at [facility] in 2018, could not insert laparoscopes [...] & Plan (07/18/2022 12:28 PM EST): Since 2005 followup with hematology as directed by Dr. Joyce Cota 06/27/2022 Vitamin D deficiency 06/27/2022 Hypercholesterolemia 05/26/2019 Complex renal cyst 04/25/2019 Overview (01/21/2023): Followed by [facility] renal, f/u annually w/ US. last seen [...] Diabetes, gestational 03/18/20232022 H/O: hypothyroidism 03/18/2023 03/18/20 23 Acute headache 06/27/2022 11/06/2022 Abnormal glucose level 05/24/201505/31 Encounters Date Type Department Care Team Description 10/21/2024 11:15 AM EDT Office Visit [facility] [address] [place] [address] Yasmine Mao MD Class 2 obesity (Primary Dx) 10/21/2024 Travel 10/17/2024 Telephone [facility] [address] [place] [address] Yasmine Mao MD ER Follow-up 10/07/2024 Population Health Risk Score [facility] (C[facility]) Department [address] [address] Provider, Population Health Generic 10/07/2024 Telephone [facility] [address] [place] [address] Yasmine Mao MD No Show 10/06/2024 Telephone [facility] [address] [place] [address] Yasmine Mao MD Chart Prep 10/06/2024 Telephone [facility] [address] [place] [address] Yasmine Mao MD Nurse Triage 09/01/2024 Refill [facility] [address] [place] [address] Yasmine Mao MD Migraine without aura, not refractory 08/19/2024 Orders Only [facility] [address] [place] [address] Yasmine Mao MD 08/18/2024 9:00 AM EST Office Visit [facility] [address] [place] [address] Tamir, Chanel, OD Presbyopia (Primary Dx) 08/18/2024 Travel from Last 3 Months Immunizations Name Administration [...] Sign Reading Time Taken Comments Blood Pressure 142/82 10/21/2024 11:57 AM EDT Pulse 88 10/21/2024 11:24 AM EDT Temperature 36.8 ??C (98.2 ??F) 10/21/2024 11:24 AM E DT Respiratory Rate 15 10/21/2024 11:24 AM EDT Oxygen Saturation 98% 10/21/2024 11:24 AM EDT Inhaled Oxygen Concentration - - Weight 75.8 kg (167 lb) 10/21/2024 11:24 AM EDT Height 149.9 cm (4' 11 ) 10/21/2024 11:24 AM EDT Body Mass Index 33.73 10/21/2024 11:24 AM EDT Plan of Treatment Health Maintenance Due Date Last Done Comments Alcohol/Substance Use Screening 1994 Family Planning (PISQ) 1997 Hepatitis A Vaccines (1 of 2 - Risk 2-dose series) 2001 COVID-19 Vaccine (3 - season) 2024 02/26/2021, 02/06/2021 Influenza Vaccine (#1) 2024 , 04/25/2019, 06/01/2018, Additional history exists Cervical Cancer Screening 11/24/2024 HPV/Cotest 11/24/2024 11/25/2019 Pap Smear 11/24/2024 11/25/2019 Depression Screening 02/25/2025 02/26/2024, 02/26/20 24 SDOH Screening 02/25/2025 02/26/2024 Mammogram 08/19/2025 08/19/2024, 07/27, 08/08/2022, Additional history exists Tobacco Screening 10/21/2025 10/21/2024 DTaP/Tdap/Td Vaccines (3 - Td or Tdap) 12/09/2025 12/10/2015, 07/17/2014, 02/25/2008 Lipid Panel 02/25/2029 02/26/2024, 03/27, 10/23/2020 Zoster Vaccines (1 of 2) 2032 RSV Patients and Patients Aged 60 years or older (1 - 1-dose 75+ series) 2057 Pneumococcal Vaccine: Pediatrics (0 to 5 Years) and At-Risk Patients (6 to 49) Years) Aged Out 02/25/2008 No longer eligible based on patient's age to complete this topic Hepatitis B Vaccines Completed 02/06/2017, 09/29/2016, 05/26/2016 HIV Screening Completed 05/30/2024, 08/09/2020 Hepatitis C Screening Completed 05/30/2024, 01/14/2 021 HIB Vaccines Aged Out No longer [...] Procedure Name Priority Date/Time Associated Diagnosis Comments HEMOGLOBIN A1C Routine 10/24/2024 11:20 AM EDT Class 2 obesity BI MAMMOGRAM SCREENING TOMOSYNTHESIS BILATERAL Routine 08/19/2024 2:45 PM EST HEPATITIS C ANTIBODY Routine 05/30/2024 10:32 AM EST HIV 1/2 ANTIGEN/ANTIBODY, FOURTH GENERATION W/RFL Routine 05/30/2024 10:32 AM EST LIPID PANEL WITH REFLEX TO DIRECT LDL Routine 02/26/2024 10:43 AM EDT Other chest pain Essential hypertension HM PAP/HPV Routine 11/25/2019 from Last 3 Months or Most Recently Relevant to Health Maintenance Results * Hemoglobin A1c (10/24/2024 11:20 AM EDT) Hemoglobin A1c 5.4 <6.0 % [facility] Comment:Hemoglobin A1C Refer ence Range Adults: 4.8 - 6.0 % Non diabetic: < 6.0 % Goal: < 7.0 %Additional Action Suggested: > 8.0 %Note: Hemoglobin A1c results are invalid for patients with abnormal amounts of HbF. Blood transfusions may impact the HbA1c concentration in the patient sample. Estimated Average Glucose 108 mg/dL [facility] Comment:eAG = Estimated ave rage glucose which is %A1C expressed asaverage glucose, using the formula of the Y4W-ZpaqnvgCnimdgv Glucose study (ADAG), Diabetes Care, Vol.31,#8,Feb. 2007 Blood Venous blood specimen / Unknown 10/24/2024 11:20 AM EDT 10/24/2024 12:30 PM EDT us Yasmine Mao MD LAB BLOOD ORDERABLES Final Res ult [facility] [address] [place] [address] [phone] * BI Mammogram Screening Tomosynthesis Bilateral (08/19/2024 2:45 PM EST) Anatomical Region Laterality Modality Breast Bilateral Mammography 08/19/2024 2:45 PM EST Narrative 08/29/2024 5:16 PM EST ? [facility] ? [address] ?[place] [address] ? Mammography Report ? Signed ? Patient: Rebolledo,Gayathri ?MR#: [id number] ? : 1980 ?Acct:[id number] ? Age/Sex: 44 / F ?ADM Date: 08/19/24 ? Loc: HO.MAMMO ? Attending Dr: Yasmine Mao MD ? Ordering Physician: Yasmnie Mao ?Results: 1Negative ? Date of Service: 08/19/ ?Follow Up: 1 Year From Orig ?? inal Mammogram ? Procedure(s): MM tomosynthesis screening BI ?? Accession Number(s): [id number] ? cc: Yasmine Mao ? EXAMINATION: ?? MM SCREENING DIGITAL BREAST TOMOSYNTHESIS, BILATERAL ? CLINICAL INFORMATION: ? Screening. Asymptomatic. ? COMPARISON: ?? Mammography: Comparison is made with available priors ? TECHNIQUE: ?? Digital breast mammography with tomosynthesis is performed in both the ?? craniocaudal and mediolateral oblique views along with computer-aided ?? detection (CAD). ? FINDINGS: ?? There are scattered areas [...] due date for their next mammogram. ? Electronically signed by: ??Yoana Son DO ??08/29/2024 05:13 PM EST ? Dictated By: ?Yoana Son DO ? Signed By: ?<Electronically signed by Yoana Son, DO in OV> ? 08/29/24 1713 ? DD/ 1445 ? TD/TT: 08/19/24 1500 ? Beef Grader: ? Procedure Note Eduardo, Image - 08/29/2024 [facility] [address] [place] [address] [place] [address] Mammography Report Signed Patient: Luis Rebolledo#: [id number] : 1980Acct:[id number] Age/Sex: 44 / FADM Date: 08/19/24 Loc: FLAKITA Attending Dr: Yasmine Mao MD Ordering Physician: Justo Maoults: 1Negative Date of Service: 08/19/24Follow Up: 1 Year From Orig inal Mammogram Procedure(s): MM tomosynthesis screening BI Accession Number(s): [id number] cc: Yasmine Mao EXAMINATION: MM SCREENING DIGITAL BREAST TOMOSYNTHESIS, BILATERAL CLINICAL INFORMATION: Screening. Asymptomatic. COMPARISON: Mammography: Comparison is made with available priors TECHNIQUE: Digital breast mammography with tomosynthesis is performed in both the craniocaudal and mediolateral oblique views along with computer-aided detection (CAD). FINDINGS: There are scattered areas of fibroglandular [...] target due date for their next mammogram. Electronically signed by: Yoana Son DO 08/29/2024 05:13 PM EST Dictated By: Yoana Son DO Signed By: <Electronically signed by Yoana Son DO in OV> 08/29/24 1713 DD/ 1445 TD/TT: 08/19/24 1500 Beef Grader: us Yasmine Mao MD IMG BI PROCEDURES Final Result * Hepatitis C Ab (05/30/2024 10:32 AM EST) Hepatitis C Antibody Nonreactive Nonreactive [facility] Comment:Antibodies to HCV no t detected; does not exclude early acuteHCV infection. 05/30/2024 10:3 2 AM EST 05/30/2024 11:19 AM EST Generic External Data Provider LAB BLOOD ORDERAB LES Final Result [facility] [address] [place] [phone] * HIV-1/2 Antigen and Antibodies, Fourth Generation, with Reflexes (05/30/2024 10:32 AM EST) HIV AB/AG Nonreactive Nonreactive [facility] Comment:HIV-1 p24 Ag and/or HIV-1/HIV-2 Ab not detected.A test result that is nonreactive does not exclude thepossibility of exposure to or infection with HIV-1 and/orHIV-2. Nonreactive results in this assay for individualswith prior exposure to HIV-1 and/or HIV-2 may be due toantigen and antibody levels that are below the limit ofdetection of this assay.The [employer] HIV Ag/Ab Combo assay result andsupplemental assay results should be interpreted inconjunction with the patient's clinical presentation,history and other laboratory results. If the results areinconsistent with clinical evidence, additional testing issuggested to confirm the result. 05/30/2024 10:3 2 AM EST 05/30/2024 11:19 AM EST us Generic External Data Provider LAB BLOOD ORDERAB LES Final Result [facility] [address] [place] [phone] * (ABNORMAL) Lipid Panel with Reflex to Direct LDL (02/26/2024 10:43 AM EDT) Triglycerides 109 <150 mg/dL [facility] Comment:Desirable Triglyceri de: less than 150 mg/dLBorderline High Triglyceride 150-199 mg/dLHigh Triglyceride: 200-499 mg/dLVery High Triglyceride: greater than or equal to 5OO mg/dL Cholesterol 183 <200 mg/dL [facility] Comment:Desirable Cholestero l: less than 200 mg/dLBorderline High Cholesterol: 200-239 mg/dLHigh Cholesterol: greater than 239 mg/dL LDL Cholesterol Calculated 105(H) <100 mg/dL [facility] Comment:Desirable LDL: less than 100 mg/dLNear Optimal/Above Optimal LDL: 110- 129 mg/dLBorderline High LDL: 130-159 mg/dLHigh LDL: 160-189 mg/dLVery High LDL: greater than or equal to 190 mg/dL HDL Cholesterol 57 >40 mg/dL [facility] Comment:Desirable HDL: great er than 40 mg/dL Note: This HDL assay may give artificially low results in patients with liver disease. Blood 02/26/2024 10:4 3 AM EDT 02/26/2024 12:59 PM EDT us Leela Cuello MD LAB BLOOD ORDERABLES Final Result [facility] [address] [place] [address] [phone] * Pap Smear (11/25/2019) Pap Negative for intraephithelial lesion or malignancy Negative for intraephithelial lesion or malignancy, Other HPV Undetected Undetected, Indeterminate, Quantitative, Not Detected Historical Provider HEALTH MAINTENANCE Final Result from Last 3 Months or Most Recently Relevant to Health Maintenance [place] [address] [place] [address] C3 Care Teams Auto Job Estimator Relationship Specialty Start Date End Date Yasmine Mao MD [address] [place] [phone] PCP - General Family Medicine 10/30/20
--- OUTSIDE RECORDS SUMMARY | 2024-10-24 12:57 | XMS_ITS | Encounter Summary ---
Author Organization [employer] Address [address] [place] [address] Care Team Providers Care Cloth Colorer Name Role Phone Yasmine Mao MD Primary Care Provider [phone] Encounter Details Date Type Department Care Team (Late st Contact Info) Description 07/18/2022 Orders Only [facility] [address] [place] [address] Ana Phelan LPN Social History Tobacco Use [...] EST Narrative 08/11/2022 12:55 PM EST ? [facility] [place] ? [address] ?[place] [address] ? Mammography Report ? Signed ? Patient: Rebolledo,Gayathri ?MR#: [id number] ? : 1980 ?Acct:[id number] ? Age/Sex: 42 / F ?ADM Date: 08/08/22 ? Loc: HO.MAMMO ? Attending Dr: Yasmine Mao MD ? Ordering Physician: Yasmine Mao ?Results: 1Negative ? Date of Service: 08/08/22 ?Follow Up: 1 Year From Orig ?? inal Mammogram ? Procedure(s): MM tomosynthesis screening BI ?? Accession Number(s): [id number] ? cc: Yasmine Mao ? EXAMINATION: ?? [...] their next mammogram. ? Dictated By: ?Bartolo Bishop MD ? Signed By: ?<Electronically signed by Bartolo Bishop MD in OV> ?08/11/22 1252 ? DD/ ? TD/TT: ? Ticket Sorter: RODRIGUEZ ? Procedure Note Miguelfranceheribertodorothy, Image - 08/11/2022 [facility] [address] [place] [address] Mammography Report Signed Patient: Luis Rebolledo#: [id number] : 1980Acct:[id number] Age/Sex: 42 / FADM Date: 08/08/22 Loc: TISHAO Attending Dr: Yasmine Mao MD Ordering Physician: Justo Maoults: 1Negative Date of Service: 08/08/22Follow Up: 1 Year From Orig inal Mammogram Procedure(s): MM tomosynthesis screening BI Accession Number(s): [id number] cc: Yasmine Mao EXAMINATION: MM SCREENING DIGITAL [...] in OV> 08/11/22 1252 DD/ 0930 TD/TT: Ticket Sorter: RODRIGUEZ [facility] External Provider IMG BI PROCEDURES Edited Result - Final documented in this encounter Visit Diagnoses Not on filedocumented in this encounter Care Teams Cloth Colorer Relationship Specialty Start Date End Date Yasmine Mao MD [address] [place] [phone] PCP - General Family Medicine 10/30/20 documented as of this encounter
--- OUTSIDE RECORDS SUMMARY | 2024-10-24 12:57 | XMS_ITS | Encounter Summary ---
Author Organization [employer] Address [address] [place] [address] Care Team Providers Care Agent Broker Name Role Phone Yasmine Mao MD Primary Care Provider [phone] Reason for Visit * Reason Onset Date Comments Nurse Triage 03/12/2023 Encounter Details Date Type Department Care Team (Late st Contact Info) Description 03/12/2023 Telephone [facility] [address] [place], [place] [phone] Yasmine Mao MD [address] [place], [place] [phone] Nurse Triage Social History Tobacco Use Types [...] 03/12/2023 1:05 PM EDT Triage call with [employer] Supervisor ID [id number] Pt is calling in regards to bumps [...] the hip areas. Advised to come to [facility] today to have provider see Pt. [...] The caller accepted this outcome Patient speaks ukrainian. documented in this encounter Plan of Treatment Not on file documented as of this encounter Visit Diagnoses Not on filedocumented in this encounter Care Teams Agent Broker Relationship Specialty Start Date End Date Yasmine Mao MD [address] [place] [phone] PCP - General Family Medicine 10/30/20 documented as of this encounter
--- OUTSIDE RECORDS SUMMARY | 2024-10-24 12:57 | XMS_ITS | Encounter Summary ---
Author Organization [employer] Address [address] [place] [address] Care Team Providers Care Waiter/Waitress Club Name Role Phone Yasmine Mao MD Primary Care Provider [phone] Reason for Visit * Reason Onset Date Comments Referral 01/04/2024 Encounter Details Date Type Department Care Team (Late st Contact Info) Description 01/04/2024 Telephone [facility] [address] [place] [address] Yasmine Mao MD [address] [place], [place] [phone] Referral Social History Tobacco Use Types Packs/Day [...] Notes * Telephone Encounter - Dee Dee aHrden - 01/04/2024 11:35 AM EDT Tc from pt requesting [facility] referral to be re faxed to office. States office has not received referral. documented in this encounter Plan of Treatment Not on file documented as of this encounter Visit Diagnoses Not on filedocumented in this encounter Care Teams Waiter/Waitress Club Relationship Specialty Start Date End Date Yasmine Mao MD [address] [place] [address] PCP - General Family Medicine 10/30/20 documented as of this encounter
--- OUTSIDE RECORDS SUMMARY | 2024-10-24 12:57 | XMS_ITS | Encounter Summary ---
Author Organization [employer] Address [address] [place] [address] Care Team Providers Care Pipe Fitter Supervisor Name Role Phone Yasmine Mao MD Primary Care Provider [phone] Reason for Visit * Reason Comments Med Refill Encounter Details Date Type Department Care Team (Late st Contact Info) Description 06/21/2023 Refill [facility] [address] [place], [place] [phone] Sarah Beth Reynolds DO [address] [place], [place] [phone] Social History Tobacco Use Types Packs/Day Years [...] on filedocumented in this encounter Care Teams Pipe Fitter Supervisor Relationship Specialty Start Date End Date Yasmine Mao MD [address] [place] [phone] PCP - General Family Medicine 10/30/20 documented as of this encounter
--- OUTSIDE RECORDS SUMMARY | 2024-10-24 12:57 | XMS_ITS | Encounter Summary ---
Author Organization [employer] Address [address] [place] [address] Care Team Providers Care Motor Vehicle Technician Name Role Phone Yasmine Mao MD Primary Care Provider [phone] Encounter Details Date Type Department Care Team (Latest Contact Info) Description 09/30/2018 Abstract [facility] Dental, Provider, DDS Social History Tobacco [...] on filedocumented in this encounter Care Teams Motor Vehicle Technician Relationship Specialty Start Date End Date Yasmine Mao MD [address] [place] [address] PCP - General Family Medicine 10/30/20 documented as of this encounter
--- OUTSIDE RECORDS SUMMARY | 2024-10-24 12:57 | XMS_ITS | Encounter Summary ---
Author Organization [employer] Address [address] [place] [address] Care Team Providers Care Utilization Management Manager Name Role Phone Yasmine Mao MD Primary Care Provider [phone] Encounter Details Date Type Department Care Team (Late st Contact Info) Description 10/21/2024 11:15 AM EDT Office Visit [facility] [address] [place], [place] [phone] Yasmine Mao MD [address] [place], [place] [phone] Class 2 obesity (Primary Dx) Social History Tobacco Use Types [...] AM EDT documented as of this encounter Last Filed Vital Signs Vital Sign Reading [...] Mass Index 33.73 10/21/2024 11:24 AM EDT documented in this encounter Plan of Treatment Scheduled Orders Name Type Priority Associated Diagnoses Orde r Schedule TSH W/Reflex to FT4 Lab Routine Class 2 obesity Expected: 10/21/2024 (Approximate), Expires: 10/21/2025 Comprehensive Metabolic Panel Lab Routine Class 2 obesity Expected: 10/21/2024 (Approximate), Expires: 10/21/2025 documented as of this encounter Procedures Procedure Name Priority Date/Time Associated Diagnosis Comments HEMOGLOBIN A1C Routine 10/24/2024 11:20 AM EDT Class 2 obesity documented in this encounter Results * Hemoglobin A1c (10/24/2024 11:20 AM EDT) Hemoglobin A1c 5.4 <6.0 % [facility] Comment:Hemoglobin A1C Refer ence Range Adults: 4.8 - 6.0 % Non diabetic: < 6.0 % Goal: < 7.0 %Additional Action Suggested: > 8.0 %Note: Hemoglobin A1c results are invalid for patients with abnormal amounts of HbF. Blood transfusions may impact the HbA1c concentration in the patient sample. Estimated Average Glucose 108 mg/dL [facility] Comment:eAG = Estimated ave rage glucose which is %A1C expressed asaverage glucose, using the formula of the M2W-OfkaappLugtzin Glucose study (ADAG), Diabetes Care, Vol.31,#8,Feb. 2007 Blood Venous blood specimen / Unknown 10/24/2024 11:20 AM EDT 10/24/2024 12:30 PM EDT us Yasmine aMo MD LAB BLOOD ORDERABLES Final Res ult [facility] [address] [place] [phone] documented in this encounter Visit Diagnoses Diagnosis Class 2 obesity- Primary documented in this encounter Additional Health Concerns Assessment Noted Time PHQ-9 Depression Total Score: 8 02/26/20 24 10:10 AM EDT documented as of this encounter Care Teams Utilization Management Manager Relationship Specialty Start Date End Date Yasmine Mao MD [address] [place] [address] PCP - General Family Medicine 10/30/20 documented as of this encounter
--- OUTSIDE RECORDS SUMMARY | 2024-10-24 12:57 | XMS_ITS | Encounter Summary ---
Author Organization [employer] Address [address] [place] [address] Care Team Providers Care Furrier Apprentice Name Role Phone Yasmine Mao MD Primary Care Provider [phone] Encounter Details Date Type Department Care Team (Latest Contact Info) Description 10/21/2024 Travel Social History Tobacco Use Types Packs/Day [...] documented as of this encounter Care Teams Furrier Apprentice Relationship Specialty Start Date End Date Yasmine Mao MD [address] [place] [phone] PCP - General Family Medicine 10/30/20 documented as of this encounter
[2024-10-24 13:02] LABS: Alanine Aminotransferase 21 U/L (0-31); Albumin Level 3.8 g/dL (3.5-5.0); Alkaline Phosphatase 57 U/L (39-117); Anion Gap 10 (12-20); Aspartate Amino Transferase 19 U/L (5-31); Bilirubin Total 0.3 mg/dL (0.0-1.0); Blood Urea Nitrogen 13 mg/dL (9-16); Calcium 8.5 mg/dL (8.4-10.2); Carbon Dioxide 28 mmol/L (22-29); Chloride 106 mmol/L (96-108); Estimated Glomerular Filt Rate > 60; Glucose Random 90 mg/dL (60-115); Sodium 140 mmol/L (135-145); Total Protein 6.9 g/dL (6.5-8.0)
[2024-10-24 13:20] LABS: TSH reflex Free T4 1.79 uIU/mL (0.32-4.0)
== END 2024-10-24 11:19 | disposition home or self-care (01) ==
LOC: HO.HHCL 11:18
PROVIDERS: Visit Provider General Practice
DX: E66.812 Obesity, class 2 (principal)
CPT/HCPCS: 36415; 80053; 83036; 84443

== ENCOUNTER 2024-12-23 12:00 | Outpatient (REF) | payer MEDICAID, SELFPAY ==
--- OUTSIDE RECORDS SUMMARY | 2024-12-23 12:44 | XMS_ITS | Clinical Summary ---
Author Organization [employer] Address [address] [facility] [address] [place] [address] Care Team Providers Care Human Resources Executive Assistant Name Role Phone Yasmine Mao MD Primary Care Provider [phone] Allergies Active Allergy Reactions Criticality Noted Date Comments Oxycodone Nausea And Vomiting High 04/07/2013 Other reaction(s): Nausea/Vomiting Oxycodone-Acetaminophe n 11/06/2022 Medications ketoconazole (NIZOral) 2 % shampoo apply by topical route every day to the affected area(s), lather, leave in place for 10 minutes, and then rinse off with water 04/03/20 22 Active escitalopram (Lexapro) 20 MG tablet Take 1 tablet by mouth 1 (one) time each day. Active zolpidem (Ambien) 10 MG tablet Take 1 tablet by mouth at bed time. Active LORazepam (Ativan) 0.5 MG tablet TAKE 1 TABLET BY MOUTH SINGLE DOSE NEEDED 04/24/20 23 Active hydrocortisone (Proctosol HC) 2.5 % rectal cream INSERT INTO THE RECTUM IN THE MORNING, AT NOON, AND AT BEDTIME IF NEEDED FOR HEMORRHOIDS. 28 g 1 06/22/20 23 Active cholecalcifero l VITAMIN D (Vitamin D-3) 50 MCG (1999 UT) capsuleIndicat ions:Vitamin D deficiency TAKE 3 CAPSULE BY MOUTH ONCE A DAY AFTER A MEAL 04/11/20 24 Active GaviLyte-G 236 g solution DRINK 240 ML POR V A ORAL EVERY 10 MINUTES 02/29/20 24 Active B Complex Vitamins (vitamin B complex) tabletIndicati ons:Hair loss Take 1 tablet by mouth Once per day. 90 tablet 3 05/30/20 24 Active dextran 70-hypromellos e (artificial tears) 0.1-0.3 % ophthalmic solutionIndica tions:Dry eyes, bilateral Administer 1 drop into both eyes if needed in the morning, at noon, and at bedtime for dry eyes. 15 mL 6 06/09/20 24 2024 Active EPINEPHrine (Epipen) 0.3 MG/0.3ML injection syringeIndicat ions:Anaphylax is, sequela Inject 0.3 mL (0.3 mg) as directed 1 (one) time if needed for anaphylaxis for up to 2 doses. Inject into upper leg. Call 911 after use. 1 each 1 10/22/19 25 Active busPIRone (Buspar) 5 MG tabletIndicati ons:Anxiety Take 1 tablet by mouth if needed in the morning and at bedtime for anxiety. 10/13/19 25 Active baclofen (Lioresal) 20 MG tablet Take 1 tablet (20 mg) by mouth 2 times daily. 60 tablet 6 10/25/19 25 2024 Active propranolol (Inderal) 40 MG tabletIndicati ons:Migraine with aura and without status migrainosus, not intractable Take 1 tablet (40 mg) by mouth 2 times daily. 60 tablet 1 12/07/19 25 2025 Active butalbital-joseph taminophen-caf feine 50-325-40 MG tabletIndicati ons:Migraine with aura and without status migrainosus, not intractable Take 1 tablet by mouth every 4 (four) hours. 15 tablet 12/07/19 25 2024 Active Blood Pressure Monitoring (Blood Pressure Cuff) miscIndication s:Elevated blood pressure reading 1 each Once daily. 1 each 12/07/19 25 Active meclizine (Antivert) 12.5 MG tablet 12.5 MG BY MOUTH 3 TIMES A DAY NEEDED FOR DIZZINESS 11/29/19 25 Active levothyroxine (Synthroid, Levoxyl) 50 MCG tablet TAKE 1 TABLET BY MOUTH EVERY DAY BEFORE BREAKFAST 90 tablet 3 12/24/19 25 Active lisinopril-hyd roCHLOROthiazi de 20-25 MG tablet TAKE 1 TABLET BY MOUTH EVERY DAY 90 tablet 3 12/24/19 25 Active omega-3 1000 MG capsule capsule Take 1 capsule by mouth in the morning. 04/22/20 22 2024 Discontinued(T herapy completed) meclizine (Antivert) 25 MG tablet Take 1 tablet by mouth if needed in the morning, at noon, and at bedtime for dizziness. 10/18/19 22 2024 Discontinued(T herapy completed) EPINEPHrine (Epipen) 0.3 MG/0.3ML injection syringe Inject 0.3 mg into the shoulder, thigh, or buttocks 1 (one) time if needed for anaphylaxis. 05/26/20 19 2024 Discontinued(T herapy completed) ondansetron (Zofran) 4 MG tabletIndicati ons:Nausea TOME STANFORD TABLETA POR VIA ORAL IF NEEDED IN THE MORNING AND AT BEDTIME FOR NAUSEA 60 tablet 09/22/19 23 2024 Discontinued(T herapy completed) busPIRone (Buspar) 15 MG tablet Take 15 mg by mouth 3 times daily. 12/11/192024 Discontinued(T herapy completed) QUEtiapine (SEROquel) 50 MG tablet Take 50 mg by mouth if needed at bedtime. 12/11/19 23 2024 Discontinued(T herapy completed) Senna-Time 8.6 MG tablet TOME DOS TABLETAS POR VIA ORAL AL ACOSTARSE CUANDO SEA NECESARIO [employer] 180 tablet 1 04/28/20 23 2024 Discontinued(T herapy completed) levothyroxine (Synthroid, Levoxyl) 50 MCG tablet TAKE 1 TABLET BY MOUTH EVERY DAY BEFORE BREAKFAST 90 tablet 3 05/26/20 24 2024 Discontinued(R eorder (will not trigger notification to Pharmacy)) lisinopril-hyd roCHLOROthiazi de 20-25 MG tablet TAKE 1 TABLET BY MOUTH EVERY DAY 90 tablet 3 07/22/20 24 2024 Discontinued(R eorder (will not trigger notification to Pharmacy)) amitriptyline (Elavil) 50 MG tabletIndicati ons:Migraine without aura, not refractory TAKE 1 TABLET (50 MG) BY MOUTH AT BEDTIME. TO PREVENT MIGRAINES AND BACK PAIN 90 tablet 3 09/01/19 25 2024 Discontinued(S rafael effects) amoxicillin (Amoxil) 500 MG tablet TOME STANFORD TABLETA POR V A ORAL CADA OCHO HORAS UNTIL GONE 06/25/20 24 2024 Discontinued(T herapy completed) B Qgaovdo-D-Qoov c Acid tablet TOME 1 TABLETA POR V A ORAL TODOS LOS D 05/30/20 24 2024 Discontinued(T herapy completed) [employer] Covid-19 Rapid Test kit as directed 08/02/192024 Discontinued(T herapy completed) ibuprofen 800 MG tablet TOME STANFORD TABLETA POR V A ORAL CADA OCHO HORAS CUANDO SEA NECESARIO 06/25/20 24 2024 Discontinued(T herapy completed) polyvinyl alcohol (Liquifilm Tears) 1.4 % ophthalmic solution PLACE 1 DROP IN EACH EYE THREE TIMES DAILY IN THE MORNING, AT NOON, AND AT BEDTIME NEEDED FOR DRY EYES 06/09/20 24 2024 Discontinued(T herapy completed) ondansetron (Zofran) 4 MG tabletIndicati ons:Migraine with aura and without status migrainosus, not intractable Take 2 tablets (8 mg) by mouth every 8 (eight) hours if needed for nausea or vomiting for up to 7 days. 20 tablet 12/07/19 25 2024 Active Problems Problem Noted Date Diagnosed Date Migraine with aura and witho ut status migrainosus, not intractable 12/06/2024 Assessment & Plan (12/06/2024 1:02 PM EDT): I advise to avoid migraine triggers like red wine, chocolate, cheese, strong perfumes Patient was taking amitriptyline for prevention of migraines but it was making her feel too drowsy so instead I switch her to propranolol 40 mg twice daily, I also prescribed for her Fioricet as needed and Zofran as needed Patient will follow-up with PCP in about 3 weeks Elevated blood pressure reading 12/06/2024 Assessment & Plan (12/06/2024 1:03 PM EDT): Today blood pressure was elevated on review of chart at the moment of the visit to the emergency room blood pressure was also elevated, I decided to prescribe for her a blood pressure cuff and instructed her to log blood pressure readings for next appointment Anaphylactic syndrome 10/24/2024 Assessment & Plan (10/24/2024 9:51 PM EDT): Possibly due to seafood/crab eaten at [employer] after acute anaphylaxis not concerning for rebound anaphylaxis Continue to carry EpiPen F/u with Allergy consult for skin testing Class 1 obesity with serious comorbidity and body mass index (BMI) of 33.0 to 33.9 in adult 10/24/2024 Unwanted fertility 05/31/2024 Overview (05/31/2024): Tried to have BTL at [facility] in 2018, could not insert laparoscopes [...] followup with hematology as directed by Dr. Cook Spasm 06/27/2022 Vitamin D deficiency 06/27/2022 Hypercholesterolemia 05/26/2019 Complex renal cyst 04/25/2019 Overview (01/21/2023): Followed by [facility] renal, f/u annually w/ [...] Encounters Date Type Department Care Team Description 12/23/2024 11:30 AM EDT Office Visit [facility] [address] [place] [address] Yasmine Mao MD Other fatigue (Primary Dx); Chronic bilateral low back pain without sciatica 12/23/2024 Travel 12/06/2024 9:30 AM EDT Office Visit [facility] [address] [place] [address] Leela Salgado MD Migraine with aura and without status migrainosus, not intractable; Elevated blood pressure reading 12/06/2024 Travel 12/05/2024 Telephone [facility] [address] [place] [address] Yasmine Mao MD Chart Prep 12/05/2024 Telephone [facility] [address] [place] [address] Yasmine Mao MD Nurse Triage 11/28/2024 Telephone [facility] [address] [place] [address] Yasmine Mao MD ER Follow-up 10/21/2024 11:15 AM EDT Office Visit [facility] [address] [place] [address] Yasmine Mao MD Anaphylaxis, sequela (Primary Dx); Dietary counseling; Exercise counseling; Class 1 obesity with serious comorbidity and body mass index (BMI) of 33.0 to 33.9 in adult, unspecified obesity type; Essential thrombocytosis (CMS/HCC); Complex renal cyst; Essential hypertension; Anxiety 10/21/2024 Travel 10/17/2024 Telephone [facility] [address] [place] [address] Yasmine Mao MD ER Follow-up 10/07/2024 Population Health Risk Score [facility] ([facility]) Department [address] [phone] Provider, Population Health Generic 10/07/2024 Telephone [facility] [address] [place] [address] Yasmine Mao MD No Show 10/06/[address] [phone] Yasmine Mao MD Chart Prep 10/06/[address] [address] Yasmine Mao MD Nurse Triage from Last 3 Months Immunizations Immunization Administration Dates Next Due Hep B, adult [...] drink = 0.6 oz pur e alcohol) Alcohol Answer Date Recorded How often do you have a drink containing alcohol ? 0 12/23/2024 How many drinks containing a lcohol do you have on a typical day when you are drinking? 0 12/23/2024 How often do you have six or more drinks on one occasion? 0 12/23/2024 Depression Answer Date Recorded Patient Health Questionnaire-9 [...] Q2 Not on file 03/28/2024 Comments No Intention Date Recorded No desire to become (finding) 0 10/21/2024 Sex and Gender Information Value Date Recorded Sex Assigned at Female 05/26/2022 10:16 AM EDT Legal Sex Female 10:16 AM EDT Gender Identity Female 05/26/2022 10:16 AM EDT Sexual Orientation Straight 05/26/2022 10 :16 AM EDT Last Filed Vital Signs Vital Sign Reading Time Taken Comments Blood Pressure 122/72 12/23/2024 11:27 AM EDT Pulse 69 12/23/2024 11:27 AM EDT Temperature 36.5 ??C (97.7 ??F) 12/23/2024 11:27 AM E DT Respiratory Rate 16 12/23/2024 11:27 AM EDT Oxygen Saturation 98% 10/21/2024 11:24 AM EDT Inhaled Oxygen Concentration - - Weight 76.2 kg (168 lb) 12/23/2024 11:27 AM EDT Height 149.9 cm (4' 11 ) 12/23/2024 11:27 AM EDT Body Mass Index 33.93 12/23/2024 11:27 AM EDT Plan of Treatment Health Maintenance Due Date Last Done Comments Hepatitis A Vaccines (1 of 2 - Risk 2-dose series) 2001 COVID-19 Vaccine ( season) 2024 02/26/2021, 02/06/2021 Influenza Vaccine (#1) 2024 , 04/25/2019, 06/01/2018, Additional history exists HPV/Cotest 11/24/2024 11/25/2019 Depression Screening 02/25/2025 02/26/2024, 02/26/20 24 SDOH Screening 02/25/2025 02/26/2024 Cervical Cancer Screening 05/16/2025 Po stponed from 05/17/2029 (Other Medical Reasons) Mammogram 08/19/2025 08/19/2024, 07/27, 08/08/2022, Additional history exists Family Planning (PISQ) 10/24/2025 10/24/2024 DTaP/Tdap/Td Vaccines (3 - Td or Tdap) 12/09/2025 12/10/2015, 07/17/2014, 02/25/2008 Alcohol/Substance Use Screening 12/23/2025 12/23/2024 Disability Screening 12/23/2025 12/23/2024 Tobacco Screening 12/23/2025 12/23/2024 Lipid Panel 02/25/2029 02/26/2024, 03/27, 10/23/2020 Pap Smear 05/17/2029 05/17/2024, 11/25/2019 Zoster Vaccines (1 of 2) 2032 RSV [...] age to complete this topic Meningococcal B Vaccine Aged Out No l onger eligible based on patient's age to complete [...] A1C Routine 10/24/2024 11:20 AM EDT Class 1 obesity with serious comorbidity and body mass index (BMI) of 33.0 to 33.9 in adult, unspecified obesity type COMPREHENSIVE METABOLIC PANEL Routine 10/24/2024 11:20 AM EDT Class 1 obesity with serious comorbidity and body mass index (BMI) of 33.0 to 33.9 in adult, unspecified obesity type TSH W/REFLEX TO FT4 Routine 10/24/2024 1 1:20 AM EDT Class 1 obesity with serious comorbidity and body mass index (BMI) of 33.0 to 33.9 in adult, unspecified obesity type BI MAMMOGRAM SCREENING TOMOSYNTHESIS BILATERAL Routine 08/19/2024 2:45 PM EST HEPATITIS C ANTIBODY Routine 05/30/2024 10:32 AM EST HIV 1/2 ANTIGEN/ANTIBODY, FOURTH GENERATION W/RFL Routine 05/30/2024 10:32 AM EST PAP SMEAR Routine 05/17/2024 LIPID PANEL WITH REFLEX TO DIRECT LDL Routine 02/26/2024 10:43 AM EDT Other chest pain Essential hypertension HM PAP/HPV Routine 11/25/2019 from Last 3 Months or Most Recently Relevant to Health Maintenance Results * TSH W/Reflex to FT4 (10/24/2024 11:20 AM EDT) TSH reflex Free T4 1.79 0.32 - 4.0 uIU/mL [facility] Blood Venous blood specimen / Unknown 10/24/2024 11:20 AM EDT 10/24/2024 12:30 PM EDT us Yasmine Mao MD LAB BLOOD ORDERABLES Final Res ult [facility] [address] [place] [phone] * Hemoglobin A1c (10/24/2024 11:20 AM EDT) Hemoglobin A1c 5.4 <6.0 % [facility] Comment:Hemoglobin A1C Refer ence Range Adults: 4.8 - 6.0 % Non diabetic: < 6.0 % Goal: < 7.0 %Additional Action Suggested: > 8.0 %Note: Hemoglobin A1c results are invalid for patients with abnormal amounts of HbF. Blood transfusions may impact the HbA1c concentration in the patient sample. Estimated Average Glucose 108 mg/dL [facility] Comment:eAG = Estimated ave rage glucose which is %A1C expressed asaverage glucose, using the formula of the N9R-OvdtsbsWfoixgl Glucose study (ADAG), Diabetes Care, Vol.31,#8,2007 Blood Venous blood specimen / Unknown 10/24/2024 11:20 AM EDT 10/24/2024 12:30 PM EDT us Yasmine Mao MD LAB BLOOD ORDERABLES Final Res ult Performing Organization Address City/[facility]/ZIP Co de Phone Number [facility] [address] [place] [phone] * (ABNORMAL) Comprehensive Metabolic Panel (10/24/2024 11:20 AM EDT) Sodium 140 135 - 145 mmol/L [facility] Potassium 4.0 3.3 - 5.1 mmol/L [facility] Chloride 106 96 - 108 mmol/L [facility] Carbon Dioxide 28 22 - 29 mmol/L [facility] Anion Gap 10(L) 12 - 20 [facility] Urea Nitrogen (BUN) 13 9 - 16 mg/dL [facility] Creatinine, Serum 0.55 0.5 - 1.4 mg/dL [facility] Estimated Glomerular Filt Rate >60 [facility] Comment:Chronic Kidney Disea se: Estimated GFR < 60 mL/min/[id number] Kidney Disease: Estimated GFR < 15 mL/min/1.73m2 Glucose 90 60 - 115 mg/dL [facility] Calcium 8.5 8.4 - 10.2 mg/dL [facility] Bilirubin, Total 0.3 0.0 - 1.0 mg/dL [facility] Aspartate Amino Transferase 19 5 - 31 U/L [facility] Alanine Aminotransferase 21 0 - 31 U/L [facility] Total Protein 6.9 6.5 - 8.0 g/dL [facility] Albumin Level 3.8 3.5 - 5.0 g/dL [facility] Alkaline Phosphatase 57 39 - 117 U/L [facility] Blood Venous blood specimen / Unknown 10/24/2024 11:20 AM EDT 10/24/2024 12:30 PM EDT Yasmine Mao MD LAB BLOOD ORDERABLES Final Res ult [facility] [address] [place] [phone] * BI Mammogram Screening Tomosynthesis Bilateral (08/19/2024 2:45 PM EST) Anatomical Region Laterality Modality Breast Bilateral Mammography 08/19/2024 2:45 PM EST Narrative 08/29/2024 5:16 PM EST ? [facility] [place] ? [address] ?[place] [address] ? Mammography Report ? Signed ? Patient: Rebolledo,Gayathri ?MR#: [id number] ? : 1980 ?Acct:[id number] ? Age/Sex: 44 / F ?ADM Date: 08/19/24 ? Loc: HO.MAMMO ? Attending Dr: Yasmine Moa MD ? Ordering Physician: Yasmine Mao ?Results: 1Negative ? Date of Service: 08/19/24 ?Follow Up: 1 Year From Orig ?? inal Mammogram ? Procedure(s): MM tomosynthesis screening BI ?? Accession Number(s): [id number] ? cc: Yasmine Mao ? EXAMINATION: ?? [...] DD/ 1445 ? TD/TT: 08/19/24 1500 ? Human Anatomy Teacher: ? Procedure Note Eduardo, Chris - 08/29/2024 [facility] [address] [place] [address] Mammography Report Signed Patient: Luis Rebolledo#: [id number] : 1980Acct:[id number] Age/Sex: 44 / FADM Date: 08/19/24 Loc: HO.MAMMO Attending Dr: Yasmine aMo MD Ordering Physician: Justo Maoults: 1Negative Date of Service: 08/19/24Follow Up: 1 Year From Orig inal Mammogram Procedure(s): MM tomosynthesis screening BI Accession Number(s): [id number] cc: Yasmine Mao EXAMINATION: MM SCREENING DIGITAL [...] 08/29/24 1713 DD/ 1445 TD/TT: 08/19/24 1500 Human Anatomy Teacher: Yasmine Mao MD IMG BI PROCEDURES Final Result * Hepatitis C Ab (05/30/2024 10:32 AM EST) Hepatitis C Antibody Nonreactive Nonreactive [facility] Comment:Antibodies to HCV no t detected; does not exclude early acuteHCV infection. 05/30/2024 10:3 2 AM EST 05/30/2024 11:19 AM EST us Generic External Data Provider LAB BLOOD ORDERAB LES Final Result [facility] [address] [place] [address] [phone] * HIV-1/2 Antigen and Antibodies, Fourth Generation, with Reflexes (05/30/2024 10:32 AM EST) HIV AB/AG Nonreactive Nonreactive [facility] Comment:HIV-1 p24 Ag and/or HIV-1/HIV-2 Ab not detected.A test result that is nonreactive does not exclude thepossibility of exposure to or infection with HIV-1 and/orHIV-2. Nonreactive results in this assay for individualswith prior exposure to HIV-1 and/or HIV-2 may be due toantigen and antibody levels that are below the limit ofdetection of this assay.The [facility] HIV Ag/Ab Combo assay result andsupplemental assay results should be interpreted inconjunction with the patient's clinical presentation,history and other laboratory results. If the results areinconsistent with clinical evidence, additional testing issuggested to confirm the result. 05/30/2024 10:3 2 AM EST 05/30/2024 11:19 AM EST us Generic External Data Provider LAB BLOOD ORDERAB LES Final Result [facility] [address] [place] [phone] * Pap Smear (05/17/2024) Pap Smear 1. NILM 1. NILM Swab 05/17/2024 Sylvies Yasmine Mao MD - 05/17/2024 NILM, HPV neg us Samia MarcialTerry LAB CYTOLOGY ORDERABLES Final Re sult * (ABNORMAL) Lipid Panel with Reflex to Direct LDL (02/26/2024 10:43 AM EDT) Triglycerides 109 <150 mg/dL [facility] Comment:Desirable Triglyceri de: less than 150 mg/dLBorderline High Triglyceride 150-199 mg/dLHigh Triglyceride: 200-499 mg/dLVery High Triglyceride: greater than or equal to 5OO mg/dL Cholesterol 183 <200 mg/dL [facility] Comment:Desirable Cholestero l: less than 200 mg/dLBorderline High Cholesterol: 200-239 mg/dLHigh Cholesterol: greater than 239 mg/dL LDL Cholesterol Calculated 105(H) <100 mg/dL [facility] Comment:Desirable LDL: less than 100 mg/dLNear Optimal/Above Optimal LDL: 110- 129 mg/dLBorderline High LDL: 130-159 mg/dLHigh LDL: 160-189 mg/dLVery High LDL: greater than or equal to 190 mg/dL HDL Cholesterol 57 >40 mg/dL [facility] Comment:Desirable HDL: great er than 40 mg/dL Note: This HDL assay may give artificially low results in patients with liver disease. Blood 02/26/2024 10:4 3 AM EDT 02/26/2024 12:59 PM EDT us Leela Cuello MD LAB BLOOD ORDERABLES Final Result [facility] [address] [place] [phone] * Pap Smear (11/25/2019) Pap Negative for intraephithelial lesion or malignancy Negative for intraephithelial lesion or malignancy, Other HPV Undetected Undetected, Indeterminate, Quantitative, Not Detected us Historical Provider HEALTH MAINTENANCE Final Result from Last 3 Months or Most Recently Relevant to Health Maintenance Insurance Care Teams Human Resources Executive Assistant Relationship Specialty Start Date End Date Yasmine Mao MD [address] [place] [phone] PCP - General Family Medicine 10/30/20
[2024-12-23 13:53] LABS: MANUAL DIFF FLAG NO
[2024-12-23 13:58] LABS: Basophils Absolute Auto 0.1 X10*3/uL (0.0-0.2); Basophils Percent Auto 0.6 % (0-2); Eosinophils Absolute Auto 0.2 X10*3/uL (0.0-0.4); Eosinophils Percent Auto 1.8 % (0-4); Hematocrit 38.5 % (37.0-47.0); Hemoglobin 12.6 g/dl (12.0-16.0); Imm Gran Abs Auto 0.05 X10*3/uL (0.00-0.03); Imm Gran Pct Auto 0.6 % (0.0-0.4); Lymphocytes Absolute Auto 2.3 X10*3/uL (1.2-4.9); Lymphocytes Percent Auto 28.4 % (20-40); Mean Corpuscular HGB Conc 32.7 g/dl (31.0-35.0); Mean Corpuscular Hemoglobin 28.9 pg (27.0-33.0); Mean Corpuscular Volume 88.3 fL (80.0-98.0); Mean Platelet Volume 9.8 fL (9.4-12.3); Monocytes Absolute Auto 0.4 X10*3/uL (0.1-1.2); Neutrophils Absolute Auto 5.2 x10*3/uL (2.0-8.3); Neutrophils Percent Auto 63.6 % (45-73); Platelet Count 461 X10*3/uL (160-400); Red Blood Count 4.36 X10*6/uL (4.20-5.50); Red Cell Distribution Width 13.3 % (11.0-16.0); White Blood Count 8.1 X10*3/uL (4.8-10.8)
== END 2024-12-23 12:01 | disposition home or self-care (01) ==
LOC: HO.HHCL 12:00
PROVIDERS: Visit Provider General Practice
DX: R53.83 Other fatigue (principal)
CPT/HCPCS: 36415; 85025

== ENCOUNTER 2025-04-28 11:04 | Outpatient (REF) | payer MEDICAID, SELFPAY ==
--- OUTSIDE RECORDS SUMMARY | 2025-04-27 15:15 | XMS_ITS | Encounter Summary ---
Author Organization [employer] Address [address] [facility] 7t [place] [address] Care Team Providers Care Retail Banker Name Role Phone Yasmine Mao MD Primary Care Provider [phone] Encounter Details Date Type Department Care Team (Late st Contact Info) Description 04/27/2025 3:15 PM EDT Office Visit [facility] MEDICINE [address] [place], [place] [phone] Leela Salgado MD [address] [place], [place] [phone] Hot flashes (Primary Dx); Dizziness; UTI symptoms; Diffuse pain Social History Tobacco Use Types Packs/Day Years [...] Sign Reading Time Taken Comments Blood Pressure 122/82 04/27/2025 3:14 PM EDT Pulse 52 04/27/2025 3:14 PM EDT Temperature 36.1 C (97 F) 04/27/2025 3:14 PM EDT Respiratory Rate 20 04/27/2025 3:14 PM EDT Oxygen Saturation - - Inhaled Oxygen Concentration - - Weight 75.8 kg (167 lb) 04/27/2025 3:14 PM EDT Height 149.9 cm (4' 11 ) 04/27/2025 3:14 PM EDT Body Mass Index 33.73 04/27/2025 3:14 PM EDT documented in this encounter Plan of Treatment Upcoming Encounters Date Type Department Care Team (Late st Contact Info) Description 07/18/2025 9:00 AM EST Office Visit [facility] OPTOMETRY [address] [place] [address], [place] [address] Emilia Amaral, OD [address] [place] [address] Scheduled Orders Name Type Priority Associated Diagnoses Order Schedule CBC auto differential Lab Routine Dizziness Expected: 04/27/2025 (Approximate), Expires: 04/27/2026 Comprehensive Metabolic Panel Lab Routine Dizziness Expected: 04/27/2025 (Approximate), Expires: 04/27/2026 Hemoglobin A1c Lab Routine Dizziness Expected: 04/27/2025 (Approximate), Expires: 04/27/2026 Hepatitis Panel, General Lab Routine Dizziness Expected: 04/27/2025, Expires: 04/27/2026 TSH with Reflex to Free T4 Lab Routine Hot flashes Dizziness Expected: 04/27/2025 (Approximate), Expires: 04/27/2026 HIV-1/2 Antigen and Antibodies, Fourth Generation, with Reflexes Lab Routine Dizziness Diffuse pain Expected: 04/27/2025 (Approximate), Expires: 04/27/2026 GAYATHRI Screen,IFA, with Reflex to Titer and Pattern Lab Routine Dizziness Diffuse pain Expected: 04/27/2025 (Approximate), Expires: 04/27/2026 FSH Lab Routine Hot flashes Expected: 04/27/2025, Expires: 04/27/2026 LH Lab Routine Hot flashes Expected: 04/27/2025 (Approximate), Expires: 04/27/2026 POCT Urinalysis Point of Care Testing Routine UTI symptoms Ordered: 04/27/2025 Culture, Urine, Routine Microbiology Routine UTI symptoms Expected: 04/27/2025 (Approximate), Expires: 04/27/2026 documented as of this encounter Visit Diagnoses Diagnosis Hot flashes- Primary Dizziness Dizziness and giddiness UTI symptoms Diffuse pain documented in this encounter Additional Health Concerns Assessment Noted Time PHQ-9 Depression Total Score: 8 02/26/20 24 10:10 AM EDT documented as of this encounter Care Teams Retail Banker Relationship Specialty Start Date End Date Yasmine Mao MD [address] [place] [address] PCP - General Family Medicine 10/30/20 documented as of this encounter
--- OUTSIDE RECORDS SUMMARY | 2025-04-28 12:21 | XMS_ITS | Encounter Summary ---
Author Organization [employer] Address [address] [facility] 7t [place] [address] Care Team Providers Care Undercover Operator Name Role Phone Yasmine Mao MD Primary Care Provider [phone] Encounter Details Date Type Department Care Team (Latest Contact Info) Description 04/27/2025 Travel Social History Tobacco Use Types Packs/Day [...] as of this encounter Plan of Treatment Upcoming Encounters Date Type Department Care Team (Late st Contact Info) Description 07/18/2025 9:00 AM EST Office Visit [facility] OPTOM[facility]RY [address] [place] [address] Emilia Amaral, OD [address] [place] [address] documented as of this encounter Visit Diagnoses Not on filedocumented in this encounter Additional Health Concerns Assessment Noted Time PHQ-9 Depression Total Score: 8 02/26/20 24 10:10 AM EDT documented as of this encounter Care Teams Undercover Operator Relationship Specialty Start Date End Date Yasmine Mao MD [address] [place] [address] PCP - General Family Medicine 10/30/20 documented as of this encounter
--- OUTSIDE RECORDS SUMMARY | 2025-04-28 12:21 | XMS_ITS | Clinical Summary ---
Author Organization [employer] Address [address] [place] [address] 7 [place] [address] Care Team Providers Care Marketing Automation Manager Name Role Phone Yasmine Mao MD Primary Care Provider [phone] Allergies Active Allergy Reactions Criticality Noted Date [...] DAY AFTER A MEAL 04/11/20 24 Active B Complex Vitamins (vitamin B complex) tabletIndicati ons:Hair loss Take 1 tablet by mouth Once per day. 90 tablet 3 05/30/20 24 Active dextran 70-hypromellos e (artificial tears) 0.1-0.3 % ophthalmic solutionIndica tions:Dry eyes, bilateral Administer 1 drop into both eyes if needed in the morning, at noon, and at bedtime for dry eyes. 15 mL 6 06/09/20 24 025 Active EPINEPHrine (Epipen) 0.3 MG/0.3ML injection syringeIndicat [...] times daily. 60 tablet 6 10/25/19 25 025 Active propranolol (Inderal) 40 MG tabletIndicati ons:Migraine with aura and without status migrainosus, not intractable Take 1 tablet (40 mg) by mouth 2 times daily. 60 tablet 1 12/07/19 25 026 Active meclizine (Antivert) 12.5 MG tablet 12.5 MG BY MOUTH 3 TIMES A DAY NEEDED FOR DIZZINESS 11/29/19 25 Active levothyroxine (Synthroid, Levoxyl) 50 MCG tablet TAKE 1 TABLET BY MOUTH EVERY DAY BEFORE BREAKFAST 90 tablet 3 12/24/19 25 Active lisinopril-hyd roCHLOROthiazi de 20-25 MG tablet TAKE 1 TABLET BY MOUTH EVERY DAY 90 tablet 3 12/24/19 25 Active LORazepam (Ativan) 0.5 MG tablet Take 1 tab po 45 minutes before flight, may repeat once after 1 hour prn anxiety, korean Do not drive with medicaion. 2 tablet 02/17/20 25 Active diphenhydrAMIN E (BENADryl) 25 MG capsule Take 2 capsules (50 mg) by mouth every 6 (six) hours if needed for itching. May take 1-2 capsules prn rashor itching 30 capsule 04/04/20 25 026 Active triamcinolone (Kenalog) 0.1 % cream Apply topically 2 times daily. 30 g 1 04/04/20 25 Active Blood Pressure Monitoring (Blood Pressure Cuff) miscIndication s:Elevated blood pressure reading USE TO CHECK BLOOD PRESSURE DIRECTED 1 each 04/04/20 25 Active cetirizine (ZyrTEC) 10 MG tablet TAKE 1 TABLET BY MOUTH EVERY DAY NEEDED 90 tablet 04/07/20 25 Active Blood Pressure Monitoring (Blood Pressure Cuff) miscIndication s:Elevated blood pressure reading 1 each Once daily. 1 each 12/07/19 25 025 Discontinued(R eorder (will not trigger notification to Pharmacy)) cetirizine (ZyrTEC) 10 MG tablet Take 1 tablet (10 mg) by mouth Once per day. Prn. 30 tablet 04/04/20 25 025 Discontinued Blood Pressure Monitoring (Blood Pressure Cuff) miscIndication s:Elevated blood pressure reading 1 each in the morning. 1 each 04/04/20 25 025 Discontinued(R eorder (will not trigger notification to Pharmacy)) cetirizine (ZyrTEC) 10 MG tablet TAKE 1 TABLET BY MOUTH EVERY DAY NEEDED 90 tablet 04/05/20 25 025 Discontinued(R eorder (will not trigger notification to Pharmacy)) Active Problems Problem Noted Date Diagnosed Date Hot flashes 04/27/2025 Dizziness 04/27/2025 UTI symptoms 04/27/2025 Diffuse pain 04/27/2025 Migraine with aura and witho ut status [...] follow-up with PCP in about 3 weeks Anaphylactic syndrome 10/24/2024 Assessment & Plan (10/24/2024 9:51 PM EDT): Possibly due to seafood/crab eaten at [employer] after acute anaphylaxis not concerning for rebound anaphylaxis Continue to carry EpiPen F/u with Allergy consult for skin testing Class 1 obesity with serious comorbidity and body mass index (BMI) of 33.0 to 33.9 in adult 10/24/2024 Unwanted fertility 05/31/2024 Overview (05/31/2024): Tried to have BTL at [facility] in 2018, could not insert laparoscopes due to scar tissue Assessment & Plan (05/31/2024 11:08 AM EST): Desires second opinion Other chest pain 02/26/2024 Blurred vision, bilateral 02/26/2024 Lower extremity edema 02/26/2024 Assessment & Plan (02/26/2024 10:49 AM EDT): Elevate legs Echo ordered Low Na diet F/u with PCP and cardiology Dyspnea on exertion 02/26/2024 Postoperative abdominal pain 11/20/2022 Assessment & Plan [...] and hydrocortisone F/u with PCP Anxiety 11/06/2022 Assessment & Plan (02/16/2025 3:06 PM EDT): -No acute respiratory distress, seems very anxious. Unknown etiology. Symptoms mild. -Only reports crushing chest pain. Given her symptoms in the absence of other probable diagnosis will send to ER for r/o ACS. Will prescribe medication for anxiety. History of gestational diabetes 11/06/2022 Essential thrombocytosis 07/18/2022 Assessment & Plan (07/18/2022 12:28 PM EST): Since 2004 followup with hematology as directed by Dr. Cook Vitamin D deficiency 06/27/2022 Hypercholesterolemia 05/26/2019 Complex renal cyst 04/25/2019 Overview (01/21/2023): Followed by [facility] renal, f/u annually w/ US. last seen 01/21/23 Recurrent major depressive episodes, moderate (C MS/HCC) 06/01/2018 Intermittent low back pain 03/15/2018 Steatosis of [...] 05/24/2015 Migraine without aura, not refractory 05/24/2015 Resolved Problems Problem Noted Date Diagnosed Date Resolved Date Elevated blood pressure reading 12/06/2024 12/26/2024 Assessment & Plan (12/06/2024 1:03 PM EDT): Today blood pressure was elevated on review of chart at the moment of the visit to the emergency room blood pressure was also elevated, I decided to prescribe for her a blood pressure cuff and instructed her to log blood pressure readings for next appointment Diabetes, gestational 03/18/20232022 H/O: hypothyroidism 03/18/2023 03/18/20 Buttock pain 03/18/2023 12/26/2024 Overview (03/18/2023): Likely due to medrotherapy -No [...] the legs, increased pain, or other concerns. Migraine 11/06/2022 12/26/2024 Acute headache 06/27/2022 11/06/2022 Spasm 06/27/2022 12/26/2024 Abnormal glucose level 05/24/201505/31 Class 2 obesity 05/24/2015 12/26/2024 Encounters Date Type Department Care Team Description 04/27/2025 3:15 PM EDT Office Visit [facility] MEDICINE [address] [place] [address] Leela Salgado MD Hot flashes (Primary Dx); Dizziness; UTI symptoms; Diffuse pain 04/27/2025 Travel 04/06/2025 Refill [facility] CH[facility] MED & PEDS [address] [place] [address] Yasmine Mao MD 04/04/2025 10:20 AM EDT Office Visit [facility] WALK[facility]IN C[facility] [address] [place] [address] Richard Woodard MD Local reaction to insect sting, accidental or unintentional, initial encounter (Primary Dx); Essential hypertension; Elevated blood pressure reading 04/04/2025 Refill [facility] MEDICINE [address] [place] [phone] Yasmine Mao MD Elevated blood pressure reading 04/04/2025 Refill [facility] WALK-IN [address] [address] Richard Woodard MD 04/04/2025 Travel 04/04/2025 Telephone [facility] MEDICINE [address] [place] [address] Yasmine Mao MD Nurse Triage 03/01/[address] [address] Yasmine Mao MD Nurse Triage 02/16/2025 2:40 PM EDT Office Visit [facility] WALKIN [address] [address] Sabrina Andrew MD Chest discomfort (Primary Dx); Anxiety 02/16/2025 Travel from Last 3 Months Immunizations Immunization Administration [...] 20 04/27/2025 3:14 PM EDT Oxygen Saturation 99% 04/04/2025 10:19 AM EDT Inhaled Oxygen Concentration - - Weight 75.8 kg (167 lb) 04/27/2025 3:14 PM EDT Height 149.9 cm (4' 11 ) 04/27/2025 3:14 PM EDT Body Mass Index 33.73 04/27/2025 3:14 PM EDT Plan of Treatment Upcoming Encounters Date Type Department Care Team (Late st Contact Info) Description 07/18/2025 9:00 AM EST Office Visit [facility] OPTOMETRY [address] [place] [address] Emilia Amaral, OD [address] [place] [address] Health Maintenance Due Date Last Done Comments HPV Vaccines (1 - 3-dose series) 1997 Hepatitis A Vaccines (1 of 2 - Risk 2-dose series) 2001 HPV/Cotest 11/24/2024 11/25/2019 Depression Screening 02/25/2025 02/26/2024, 02/26/20 24 SDOH Screening 02/25/2025 02/26/2024 COVID-19 Vaccine ( season) 2025 02/26/2021, 02/06/2021 Influenza Vaccine (#1) 2025 , 04/25/2019, 06/01/2018, Additional history exists Cervical Cancer Screening 05/16/2025 Po stponed from 05/17/2029 (Other Medical Reasons) Mammogram 08/19/2025 08/19/2024, 07/27, 08/08/2022, Additional history exists Family Planning (PISQ) 10/24/2025 10/24/2024 DTaP/Tdap/Td Vaccines (3 - Td or Tdap) 12/09/2025 12/10/2015, 07/17/2014, 02/25/2008 Alcohol/Substance Use Screening 12/23/2025 12/23/2024 Disability Screening 12/23/2025 12/23/2024 Tobacco Screening 04/27/2026 04/27/2025 Lipid Panel 02/25/2029 02/26/2024, 03/27, 10/23/2020 Pap Smear 05/17/2029 05/17/2024, 11/25/2019 Zoster Vaccines (1 of 2) 2032 RSV Patients and Patients Aged 60 years or older (1 - 1-dose 75+ series) 2057 Pneumococcal Vaccine: Pediatrics (0 to 5 Years) and At-Risk Patients (6 to 49) Years Aged Out 02/25/2008 No longer eligible based [...] Procedure Name Priority Date/Time Associated Diagnosis Comments ECG 12-LEAD Routine 02/16/2025 2:45 PM EDT Chest discomfort BI MAMMOGRAM SCREENING TOMOSYNTHESIS BILATERAL Routine 08/19/2024 [...] Recently Relevant to Health Maintenance Results * ECG 12 lead (02/16/2025 2:45 PM EDT) Narrative Sabrina Andrew MD - 02/16/2025 2:45 PM EDT NSR 76 bpm No evidence of ischemia or infarction us Sabrina Andrew MD ECG ORDERABLES Final Resu lt * BI Mammogram Screening Tomosynthesis Bilateral (08/19/2024 2:45 PM EST) Anatomical Region Laterality Modality Breast Bilateral Mammography 08/19/2024 2:45 PM EST Narrative 08/29/2024 5:16 PM EST [facility] [address] [place] [address] Mammography Report Signed Patient: Gayathri Rebolledo MR#: [id number] : 1980 Acct:[id number] Age/Sex: 44 / F ADM Date: 08/19/24 Loc: HO.MAMMO Attending Dr: Yasmine Mao MD Ordering Physician: Yasmine Mao Results: 1Negative Date of Service: 08/19/24 Follow Up: 1 Year From Orig ina Mammogram Procedure(s): MM tomosynthesis screening BI Accession Number(s): [id number] cc: Yasmine Mao EXAMINATION: MM SCREENING DIGITAL [...] Yoana Son DO 08/29/2024 05:13 PM EST RP Dictated By: Yoana Son DO Signed By: <Electronically signed by Yoana Son DO in OV> 08/29/24 1713 DD/ 1445 TD/TT: 08/19/24 1500 Hogshead Packer: Procedure Note Donotuseinterpreter, Image - 08/29/20[facility] [address] [place], [place] [address] Mammography Report Signed Patient: Luis Rebolledo#: [id number] : 1980Acct:[id number] Age/Sex: 44 / FADM Date: 08/19/24 Loc: HO.MAMMO Attending Dr: Yasmine Mao MD Ordering Physician: Justo Maoults: 1Negative Date of Service: 08/19/24Follow Up: 1 Year From Orig inal Mammogram Procedure(s): MM tomosynthesis screening BI Accession Number(s): [id number] cc: Yasmine Mao EXAMINATION: MM SCREENING DIGITAL [...] Yoana Son DO 08/29/2024 05:13 PM EST RP Dictated By: Yoana Son DO Signed By: <Electronically signed by Yoana Son DO in OV> 08/29/24 1713 DD/ 1445 TD/TT: 08/19/24 1500 Hogshead Packer: us Yasmine Mao MD IMG BI PROCEDURES Final Result * Hepatitis C Ab (05/30/2024 10:32 AM EST) Hepatitis C Antibody Nonreactive Nonreactive [facility] Comment:Antibodies to HCV no t detected; does not exclude early acuteHCV infection. 05/30/2024 10:3 2 AM EST 05/30/2024 11:19 AM EST us Generic External Data Provider LAB BLOOD ORDERAB LES Final Result [facility] [address] [place] [phone] * HIV-1/2 Antigen and Antibodies, Fourth Generation, with Reflexes (05/30/2024 10:32 AM EST) HIV AB/AG Nonreactive Nonreactive [facility] Comment:HIV-1 p24 Ag and/or HIV-1/HIV-2 Ab not detected.A test result that is nonreactive does not exclude thepossibility of exposure to or infection with HIV-1 and/orHIV-2. Nonreactive results in this assay for individualswith prior exposure to HIV-1 and/or HIV-2 may be due toantigen and antibody levels that are below the limit ofdetection of this assay.The 5min [employer] HIV Ag/Ab Combo assay result andsupplemental assay results should be interpreted inconjunction with the patient's clinical presentation,history and other laboratory results. If the results areinconsistent with clinical evidence, additional testing issuggested to confirm the result. 05/30/2024 10:3 2 AM EST 05/30/2024 11:19 AM EST us Generic External Data Provider LAB BLOOD ORDERAB LES Final Result [facility] [address] [place] [address] [phone] * Pap Smear (05/17/2024) Pap Smear 1. NILM 1. NILM Swab 05/17/2024 Yasmine Herzog MD - 05/17/2024 NILM, HPV neg us [facility] ORDERABLES Final Re sult * (ABNORMAL) Lipid Panel with Reflex to Direct LDL (02/26/2024 10:43 AM EDT) Triglycerides 109 <150 mg/dL [facility] Comment:Desirable Triglyceri de: less than 150 mg/dLBorderline High Triglyceride 150-199 mg/dLHigh Triglyceride: 200-499 mg/dLVery High Triglyceride: greater than or equal to 5OO mg/dL Cholesterol 183 <200 mg/dL [facility] Comment:Desirable Cholestero l: less than 200 mg/dLBorderline High Cholesterol: 200-239 mg/dLHigh Cholesterol: greater than 239 mg/dL LDL Cholesterol Calculated 105(H) <100 mg/dL [facility] Comment:Desirable LDL: less than 100 mg/dLNear Optimal/Above Optimal LDL: 110- 129 mg/dLBorderline High LDL: 130-159 mg/dLHigh LDL: 160-189 mg/dLVery High LDL: greater than or equal to 190 mg/dL HDL Cholesterol 57 >40 mg/dL [facility] Comment:Desirable HDL: great er than 40 mg/dL Note: This HDL assay may give artificially low results in patients with liver disease. Blood 02/26/2024 10:4 3 AM EDT 02/26/2024 12:59 PM EDT us Leela Cuello MD LAB BLOOD ORDERABLES Final Result [facility] [address] [place] [address] [phone] * Pap Smear (11/25/2019) Pap Negative for intraephithelial lesion or malignancy Negative for intraephithelial lesion or malignancy, Other HPV Undetected Undetected, Indeterminate, Quantitative, Not Detected us Historical Provider HEALTH MAINTENANCE Final Result from Last 3 Months or Most Recently Relevant to Health Maintenance Insurance [employer] Care Teams Marketing Automation Manager Relationship Specialty Start Date End Date Yasmine Mao MD [address] [place] [phone] PCP - General Family Medicine 10/30/20
--- OUTSIDE RECORDS SUMMARY | 2025-04-28 12:21 | XMS_ITS | Encounter Summary ---
Author Organization [employer] Address [address] [place] [address] 7[address] [place] [address] Care Team Providers Care Deck Mechanic Name Role Phone Yasmine Mao MD Primary Care Provider [phone] Encounter Details Date Type Department Care Team (Late st Contact Info) Description 09/10/2022 Orders Only [facility] MEDICINE [address] [place], [place] [phone] Yasmine Mao MD [address] [place], [place] [phone] Essential hypertension (Primary Dx); Other specified hypothyroidism [...] Description 07/18/2025 9:00 AM EST Office Visit [facility] OPTOMETRY [address] [place], [place] [phone] Emilia Amaral, OD [address] [place], [place] [phone] documented as of this encounter Procedures Procedure Name Priority Date/Time Associated Diagnosis Comments TSH W/REFLEX TO FT4 Routine 09/16/2022 1 2:26 PM EST Other specified hypothyroidism CBC WITH AUTO DIFFERENTIAL Routine 09/16/2022 12:26 PM EST Essential hypertension documented in this encounter Results * (ABNORMAL) CBC auto differential (09/16/2022 12:26 PM EST) White Blood Cell Count 8.3 3.8 - 10.8 Thousand/ uL [facility] Red Blood Cell Count 4.20 3.80 - 5.10 Million/u L [facility] Hemoglobin 12.6 11.7 - 15.5 g/dL [facility] Hematocrit 37.0 35.0 - 45.0 % [facility] MCV 88.1 80.0 - 100.0 fL [facility] MCH 30.0 27.0 - 33.0 pg [facility] MCHC 34.1 32.0 - 36.0 g/dL [facility] RDW 12.1 11.0 - 15.0 % [facility] Platelet Count 414(H) 140 - 400 Thousand/ uL [facility] MPV 10.5 7.5 - 12.5 fL [facility] Absolute Neutrophils 4,789 1,500 - 7,800 cells/uL [facility] Absolute Lymphocytes 2,689 850 - 3,900 cells/uL [facility] Absolute Monocytes 465 200 - 950 cells/uL [facility] Absolute Eosinophils 291 15 - 500 cells/uL [facility] Absolute Basophils 66 0 - 200 cells/uL [facility] Neutrophils 57.7 % [facility] Lymphocytes 32.4 % [facility] Monocytes 5.6 % [facility] Eosinophils 3.5 % [facility] Basophils 0.8 % [facility] Blood Venous blood specimen / Unknown 09/16/2022 12:26 PM EST 09/16/2022 12:27 PM EST Narrative [facility] - 09/17/2022 5:01 AM EST FASTING:NO FASTING: NO us Yasmine Mao MD LAB BLOOD ORDERABLES Final Res ult [facility] [address] [facility], [place] [address] [facility] [address] [facility], ([address]) [place] [address] * TSH W/Reflex to FT4 (09/16/2022 12:26 PM EST) TSH w/Reflex to FT4 2.33 mIU/L [facility] Comment: Reference Range > or = 20 Years 0.40-4.50 Ranges First trimester 0.26-2.66 Second trimester 0.55-2.73 Third trimester 0.43-2.91 09/16/2022 12:2 6 PM EST 09/16/2022 12:27 PM EST Narrative [facility] - 09/17/2022 5:01 AM EST FASTING:NO FASTING: NO us Yasmine Mao MD LAB BLOOD ORDERABLES Final Res ult [facility] [address] [facility] [facility], [place] [address] [facility] [address] [facility], ([address]) [place] [address] documented in this encounter Visit Diagnoses Diagnosis Essential hypertension- Primary Unspecified essential hypertension Other specified hypothyroidism documented in this encounter Care Teams Deck Mechanic Relationship Specialty Start Date End Date Yasmine Mao MD [address] [place] [address] PCP - General Family Medicine 10/30/20 documented as of this encounter
--- OUTSIDE RECORDS SUMMARY | 2025-04-28 12:21 | XMS_ITS | Encounter Summary ---
Author Organization [employer] Address [address] [place] [address] 7 [place] [address] Care Team Providers Care Beauty Therapist Name Role Phone Yasmine Mao MD Primary Care Provider [phone] Reason for Referral * Consultation (Routine) - Closed Specialty Diagnoses / Procedures Referred By Farhat callahan Referred To Contact Obstetrics and Gynecology Diagnoses Screening for cervical cancer Yasmine Mao MD [address] [place] [address] Phone: tel: fax: [address] Phone: tel: fax: Referral ID Status Reason Start Date Expiration Date V isits Requested Visits Authorized [id number] Closed Specialty Services Required 09/29/2023 09/27/2024 1 12 Encounter Details Date Type Department Care Team (Late st Contact Info) Description 09/25/2023 Orders Only [facility] MEDICINE [address] [place] [address] [phone] Yasmine Mao MD [address] [place] [address] [phone] Screening for cervical cancer (Primary Dx) Social [...] Description 07/18/2025 9:00 AM EST Office Visit [facility] OPTOMETRY [address] [place] [address] Emilia Amaral, OD [address] [place] [address] Scheduled Referrals Name Type Priority Associated Diagnoses Order Schedule Referral to Obstetrics / Gynecology Outpatient Referral Routine Screening for cervical cancer Expected: 09/25/2023 (Approximate), Expires: 09/24/2024 documented as of this encounter Visit Diagnoses Diagnosis Screening for cervical cancer- Primary Screening for malignant neoplasm of the cervix documented in this encounter Care Teams Beauty Therapist Relationship Specialty Start Date End Date [place], Yasmine, MD [address] [place] [address] PCP - General Family Medicine 10/30/20 documented as of this encounter
--- OUTSIDE RECORDS SUMMARY | 2025-04-28 12:21 | XMS_ITS | Clinical Summary ---
Author Organization [facility] Address [address] [place] [address] Phone Care Team Providers Care Rod Mill Tender Name Role Phone Yasmine Mao MD Primary Care Provider [phone] Allergies Active Allergy Reactions Criticality Noted Date [...] 60 06/12/2024 10:08 PM EST Temperature 36.8 C (98.2 F) 06/12/2024 10:08 PM EST Respiratory Rate 16 06/12/2024 10:08 PM EST [...] 2001 Cervical Cancer Screening: Pap Smear 2003 HPV Vaccines (1 - 3-dose SCDM series) 2009 Cholesterol Screening (Lipid Panel) 08/25/2023 Hepatitis C Screening 08/25/2023 Social Influencers of Health Screening 08/25/2023 Depression Screening 07/27/2024 COVID-19 Vaccine (3 - season) 2025 02/26/2021, 02/06/2021 Influenza Vaccine (#1) 2025 , 04/25/2019, 06/01/2018, Additional history exists Hypertension/CHF/CAD Annual BMP Blood Test 05/30/2025 05/30/2024 DTaP,Tdap,and Td Vaccines (4 - Td or Tdap) 12/09/2025 12/10/2015, 07/17/2014, 02/25/2008 RSV Immunization Adult Patients (1 - 1-dose 75+ series) 2057 Pneumococcal Vaccine: Pediatrics (0 to 5 Years) and At-Risk Patients (6 to 49 Years) Aged Out 02/25/2008 No longer eligible [...] to complete this topic Insurance [place] - [place] Care Teams Rod Mill Tender Relationship Specialty Start Date End Date Yasmine Mao MD [address] [place] [address] PCP - General Cylindrical Mixer 06/12/24
--- OUTSIDE RECORDS SUMMARY | 2025-04-28 12:21 | XMS_ITS | Encounter Summary ---
Author Organization [employer] Address [address] [place] [address] 7 [place] [address] Care Team Providers Care Postal Service Clerk Name Role Phone Yasmine Mao MD Primary Care Provider [phone] Encounter Details Date Type Department Care Team (Latest Contact Info) Description 09/30/2018 Abstract [facility] CONVERSIONS Dental, Provider, DDS Social History Tobacco [...] Upcoming Encounters Date Type Department Care Team ( st Contact Info) Description 07/18/2025 9:00 AM EST Office Visit [facility] OPTOMETRY [address] [place], [place] [phone] Emilia Amaral, OD [address] [place] [address] documented as of this encounter Visit Diagnoses Not on filedocumented in this encounter Care Teams Postal Service Clerk Relationship Specialty Start Date End Date Yasmine Mao MD [address] [place], [place] [phone] PCP - General Family Medicine 10/30/20 documented as of this encounter
--- OUTSIDE RECORDS SUMMARY | 2025-04-28 12:21 | XMS_ITS | Encounter Summary ---
Author Organization [employer] Address [address] [place] [address] 7t [place] [address] Care Team Providers Care Cannon Fire Direction Specialist Name Role Phone Yasmine Mao MD Primary Care Provider [phone] Reason for Visit * Reason Onset Date Comments Nurse Triage 03/12/2023 Encounter Details Date Type Department Care Team (Late st Contact Info) Description 03/12/2023 Telephone [facility] MEDICINE [address] [place], [place] [phone] Yasmine Mao MD [address] [place], [place] [phone] Nurse Triage Social History Tobacco Use Types [...] 03/12/2023 1:05 PM EDT Triage call with [place] Account Specialist ID [id number] Pt is calling in regards to bumps [...] the hip areas. Advised to come to [facility] today to have provider see Pt. Pt [...] The caller accepted this outcome Patient speaks belizean. documented in this encounter Plan of Treatment Upcoming Encounters Date Type Department Care Team (Late st Contact Info) Description 07/18/2025 9:00 AM EST Office Visit [facility] OPTOMETRY [address] [place] [address] Emilia Amaral, OD [address] [place] [address] documented as of this encounter Visit Diagnoses Not on filedocumented in this encounter Care Teams Cannon Fire Direction Specialist Relationship Specialty Start Date End Date Yasmine Mao MD [address] [place] [address] PCP - General Family Medicine 10/30/20 documented as of this encounter
--- OUTSIDE RECORDS SUMMARY | 2025-04-28 12:21 | XMS_ITS | Encounter Summary ---
Author Organization [employer] Address [address] [facility] 7t [place] [address] Care Team Providers Care Sap Fico Business Analyst Name Role Phone Yasmine Mao MD Primary Care Provider [phone] Reason for Visit * Reason Onset Date Comments Referral 01/04/2024 Encounter Details Date Type Department Care Team (Late st Contact Info) Description 01/04/2024 Telephone [facility] [address] [place], [place] [phone] Yasmine Mao MD [address] [place], [place] [phone] Referral Social History Tobacco Use Types Packs/Day [...] 11:35 AM EDT Tc from pt requesting [facility]ROL OFFIC[facility] referral to be re faxed to office. [facility] office has not received referral. documented in this encounter Plan of Treatment Upcoming Encounters Date Type Department Care Team (Late st Contact Info) Description 07/18/2025 9:00 AM EST Office Visit [facility] OPT[facility] [address] [place] [address] Emilia Amaarl, OD [address] [place] [address] documented as of this encounter Visit Diagnoses Not on filedocumented in this encounter Care Teams Sap Fico Business Analyst Relationship Specialty Start Date End Date Yasmine Mao MD [address] [place] [address] PCP - General Family Medicine 10/30/20 documented as of this encounter
--- OUTSIDE RECORDS SUMMARY | 2025-04-28 12:21 | XMS_ITS | Encounter Summary ---
Author Organization [employer] Address [address] [place] [address] 7 [place] [address] Care Team Providers Care Utilization Review Rn Name Role Phone Yasmine Mao MD Primary Care Provider [phone] Encounter Details Date Type Department Care Team (Late st Contact Info) Description 07/18/2022 Orders Only [facility] [address] [place] [address] Ana Phelan LPN Social History Tobacco Use [...] AM EST documented as of this encounter Functional Status * Over the past 2 weeks, how often have you been bothered by any of the following problems? Question Answer Date of Assessment Author Little interest or pleasure in doing things Not at all 07/18/2022 11:28 AM EST Philipp Kirk MA Feeling down, depressed, or hopeless Not at all 07/18/2022 11:28 AM EST Philipp Kirk MA Patient Health Questionnaire-2 Score 0 07/18/2022 11:28 AM EST Josi Kirk MA documented as of this encounter Plan of Treatment Upcoming Encounters Date Type Department Care Team (Late st Contact Info) Description 07/18/2025 9:00 AM EST Office Visit [facility] OPTOMETRY [address] [place] [address] Tarka, Emilia, OD [address] [place] [address] documented as of this encounter Procedures Procedure Name Priority Date/Time Associated Diagnosis Comments BI MAMMOGRAM SCREENING TOMOSYNTHESIS BILATERAL Routine 08/08/2022 9:30 AM EST documented in this encounter Results * BI Mammogram Screening Tomosynthesis Bilateral (08/08/2022 9:30 AM EST) Anatomical Region Laterality Modality Breast Bilateral Mammography 08/08/2022 9:30 AM EST Narrative 08/11/2022 12:55 PM EST [facility] [address] [place] [address] Mammography Report Signed Patient: Gayathri Rebolledo MR#: [id number] : 1980 Acct:[id number] Age/Sex: 42 / F ADM Date: 08/08/22 Loc: HO.MAMMO Attending Dr: Yasmine Mao MD Ordering Physician: Yasmine Mao Results: 1Negative Date of Service: 08/08/22 Follow Up: 1 Year From Orig inal Mammogram Procedure(s): MM tomosynthesis screening BI Accession Number(s): [id number] cc: Yasmine Mao EXAMINATION: MM SCREENING DIGITAL [...] in OV> 08/11/22 1252 DD/ 0930 TD/TT: Tag Press Operator: RODRIGUEZ Procedure Note Donotuseinterpreter, Image - 08/11/2022 [facility] [address] [place] [address] Mammography Report Signed Patient: Luis Rebolledo#: [id number] : 1980Acct:[id number] Age/Sex: 42 / FADM Date: 08/08/22 Loc: HO.MAMMO Attending Dr: Yasmine Mao MD Ordering Physician: Justo Maoults: 1Negative Date of Service: 08/08/22Follow Up: 1 Year From Orig inal Mammogram Procedure(s): MM tomosynthesis screening BI Accession Number(s): [id number] cc: Yasmine Mao EXAMINATION: MM SCREENING DIGITAL [...] in OV> 08/11/22 1252 DD/ 0930 TD/TT: Tag Press Operator: RODRIGUEZ [facility] External Provider IMG BI PROCEDURES Edited Result - Final documented in this encounter Visit Diagnoses Not on filedocumented in this encounter Care Teams Utilization Review Rn Relationship Specialty Start Date End Date Yasmine Mao MD [address] [place] [address] PCP - General Family Medicine 10/30/20 documented as of this encounter
--- OUTSIDE RECORDS SUMMARY | 2025-04-28 12:21 | XMS_ITS | Encounter Summary ---
Author Organization [employer] Address [address] [facility] 7t [place] [address] Care Team Providers Care Pitch Worker Name Role Phone Yasmine Mao MD Primary Care Provider [phone] Reason for Visit * Reason Comments Med Refill Encounter Details Date Type Department Care Team (Late st Contact Info) Description 06/21/2023 Refill [facility] [address] [place], [place] [phone] Sarah Beth Reynolds DO [address] [place], [place] [phone] Social History Tobacco Use Types Packs/Day Years [...] AM EST Office Visit [facility] [address] [place] [address] Emilia Amaral, OD [address] [place] [address] documented as of this encounter Visit Diagnoses Not on filedocumented in this encounter Care Teams Pitch Worker Relationship Specialty Start Date End Date Yasmine Mao MD [address] [place] [address] PCP - General Family Medicine 10/30/20 documented as of this encounter
[2025-04-28 13:28] LABS: MANUAL DIFF FLAG NO
[2025-04-28 13:41] LABS: Hematocrit 38.4 % (37.0-47.0); Hemoglobin 12.8 g/dl (12.0-16.0); Imm Gran Abs Auto 0.07 X10*3/uL (0.00-0.03); Imm Gran Pct Auto 0.9 % (0.0-0.4); Lymphocytes Absolute Auto 1.9 X10*3/uL (1.2-4.9); Mean Corpuscular HGB Conc 33.3 g/dl (31.0-35.0); Mean Corpuscular Hemoglobin 29.2 pg (27.0-33.0); Mean Corpuscular Volume 87.5 fL (80.0-98.0); NRBC Abs Auto 0.000 X10*3/uL (0.0-0.012); NRBC Pct Auto 0.0 /100WBC (0.0-0.2); Platelet Count 483 X10*3/uL (160-400); Red Blood Count 4.39 X10*6/uL (4.20-5.50); White Blood Count 8.2 X10*3/uL (4.8-10.8)
[2025-04-28 14:28] LABS: Alanine Aminotransferase 30 U/L (0-31); Albumin Level 4.4 g/dL (3.5-5.0); Alkaline Phosphatase 83 U/L (39-117); Anion Gap 13 (12-20); Aspartate Amino Transferase 26 U/L (5-31); Blood Urea Nitrogen 6 mg/dL (9-16); Calcium 9.1 mg/dL (8.4-10.2); Carbon Dioxide 28 mmol/L (22-29); Chloride 100 mmol/L (96-108); Estimated Glomerular Filt Rate > 60; Potassium 3.5 mmol/L (3.3-5.1); Sodium 137 mmol/L (135-145); Total Protein 7.6 g/dL (6.5-8.0)
[2025-04-29 04:40] LABS: HBS Num1 267.63 mIU/mL (0-7.99); HBc Num1 0.05 S/CO (0.00-0.79); HBsAGNum1 0.34 S/CO (0.00-0.99); HIV Num 1 0.07 S/CO (0.00-0.99); Hepatitis A Antibody IgM 0.14 Index (0-0.79); Hepatitis B Surface Antigen Negative (Negative); ~HepC Num1 0.06 S/CO (0.00-0.79); ~Hepatitis A Antibody IgM Nonreactive (Nonreactive); ~Hepatitis B Surface Antibody REACTIVE (Nonreactive); ~Hepatitis C Antibody Nonreactive (Nonreactive)
[2025-04-29 19:37] LABS: Follicle Stimulating Hormone 8.2 mIU/mL
[2025-05-09 15:38] LABS: Anti Nuclear Antibody Screen POSITIVE (NEGATIVE); Anti Nuclear Antibody Titer 1:640 titer
== END 2025-04-28 11:05 | disposition home or self-care (01) ==
LOC: HO.HHCL 11:04
PROVIDERS: PCP General Practice; Visit Provider Internal Medicine
DX: Z11.4 Encounter for screening for human immunodeficiency virus [HIV] (principal); Z11.59 Encounter for screening for other viral diseases; Z01.84 Encounter for antibody response examination; R39.9 Unspecified symptoms and signs involving the genitourinary system; R42 Dizziness and giddiness; R52 Pain, unspecified; R23.2 Flushing
CPT/HCPCS: 36415; 80053; 83001; 83002; 83036; 84443; 85025; 86038; 86039; 86704; 86706; 86709; 86803; 87086; 87340; 87389

== ENCOUNTER 2025-05-22 13:16 | Outpatient (AMB) | payer MEDICAID, SELFPAY ==
--- NOTE | 2025-05-22 13:18 | MHC.OFFVIS ---
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 She does complain of a pain in her left back but difficult to determine if it is related to movement or not she says it has been there a couple of months. She says she spoke about it with her primary and she had some blood tests ordered and now she is being referred to some other specialists but she is not sure to whom or when. Her daughter who is with her as calling about that now. She has a history of a abdominant plasty and there was notes from last year visit where she said that she tried to have her tubes tied after her last child was born but there was too much scar tissue in the surgeon could not do it that was here at this hospital, however she says her abdominal plasty was in 2022 after the attempt to do the tubal so she does not know where the scar tissue came from. She says her primary at the [facility] referred her down to [facility] to have a consultation about all of this but when she got there there were no records there so the appointment was not helpful. Currently she is using condoms if she is active and is okay with that. LMP was 05/10/2025. She is here with her adult daughter who is 27. [facility] Surgical History History of surgery on arm Family History Father Liver cancer Social History Household Members: Children Housing: House Are you a primary care worker to a significant other at home: No Do you presently have visiting nurse or other home services: No Patient Tobacco Use Status: Never used Tobacco service: No Current occupational status: unemployed Female Reproductive History Menstrual Age of Menarche: 11 Duration of menses: 6-7 days Date of last menstrual period: 05/10/25 control method: none Date of last pap smear: 05/17/24 (negative pap smear, negative hpv ) Date of Mammogram: 08/19/24 (bi rad 1) Physical Exam Const General: healthy appearing, comfortable, no acute distress, well developed and alert Nutritional Appearance: average body habitus Orientation/consciousness: patient oriented x3 Limitations: no limitations HEENT Head: Yes normocephalic Neck Neck: Yes normal visual inspection Chest Chest palpation & inspection: normal inspection of the chest Breast/axilla inspection: normal inspection of the breasts and normal inspection of the axillae Breast/axilla palpation: normal palpation of the breasts and normal palpation of the axillae Resp Effort & Inspection: normal respiratory effort GI Inspection: Yes normal to inspection, No Abdominal wall edema and No distended Palpation (GI): Soft to palpation and nontender Other: Evidence of abdominal plasty she says from 2022. Vagina pink and moist cervix nulliparous appearing (status post LEEP in 1999), clear fertile type mucus patient is in fact midcycle cervix is long close thick mobile today uterus difficult to feel secondary to adipose but nontender adnexa nontender good tone with Kegel. General: Yes bladder normal to palpation External Female Exam: normal external appearance and normal appearance of the urethra Speculum Exam - Vagina: normal appearance of the vagina, normal palpation and normal vaginal discharge Speculum Exam - Cervix: normal appearance of the cervix, normal palpation and nontender Bimanual exam- vagina & uterus: normal bimanual exam, normal palpation, uterine size normal, bladder normal to palpation, consistency normal, normal palpation, uterine mobility normal, uterine shape normal, No Cervical tenderness present, non-tender and no cervical motion tenderness Bimanual Exam- Adnexa, other: normal adnexae, no masses, normal and No adnexal tenderness Neuro General: patient oriented x3 Assessment & Plan Assessment & Plan (1) Cervical cancer screening: Comment: hx of abnormal pap 1999, had a procedure after, ?LEEP?; 05/17/2024 Pap is negative with negative HPV. Code(s): Z12.4 - Encounter for screening for malignant neoplasm of cervix Category: Medical (2) Encounter for screening examination for sexually transmitted disease: Code(s): Z11.3 - Encounter for screening for infections with a predominantly sexual mode of transmission Category: Medical (3) Hx of abdominoplasty: Comment: In [place] 20[place], with scar tissue Code(s): Z98.890 - Other specified postprocedural states Category: Surgical (4) Well woman exam with routine gynecological exam: Code(s): Z01.419 - Encounter for gynecological examination (general) (routine) without abnormal findings Category: Medical (5) control counseling: Comment: Patient currently using condoms. States tubal ligation was attempted in 2017 but unable to be done because of scar tissue. She says that attempt pre dated her abdominal plasty in the [place] so she does not understand why and where the scar tissue came from ---05/22/25--request records to review with her primary care provider. Code(s): Z30.09 - Encounter for other general counseling and advice on contraception Category: Medical Plan Patient still has lots of questions about what the scar tissue was from when the motorcycle police officer here tried to do a tubal ligation in 2017 and could not do it. Given that she still has lots of questions about it and has not received satisfactory answers please have her sign to obtain the records of the surgery so she can review them herself and also with her primary care doctor. Testing offered for STI screens and she opted to have screening done during the visit just to be sure though she is not particularly worried. She is using condoms her last menstrual period was May 10 and she appears that she is ovulating today Also accepted lab work orders to get blood work done for STI screens. I recommend that she follow-up with her primary care about any of her other concerns.. Orders: Orders Hepatitis B Surface Antigen Today Z01.419 - Encounter for gynecological examination (general) (routine) without abnormal findings, Z11.3 - Encounter for screening for infections with a predominantly sexual mode of transmission, Z12.4 - Encounter for screening for malignant neoplasm of cervix, Z30.09 - Encounter for other general counseling and advice on contraception, Z98.890 - Other specified postprocedural states Hepatitis C Antibody Today Z01.419 - Encounter for gynecological examination (general) (routine) without abnormal findings, Z11.3 - Encounter for screening for infections with a predominantly sexual mode of transmission, Z12.4 - Encounter for screening for malignant neoplasm of cervix, Z30.09 - Encounter for other general counseling and advice on contraception, Z98.890 - Other specified postprocedural states Syphilis Screen Today Z01.419 - Encounter for gynecological examination (general) (routine) without abnormal findings, Z11.3 - Encounter for screening for infections with a predominantly sexual mode of transmission, Z12.4 - Encounter for screening for malignant neoplasm of cervix, Z30.09 - Encounter for other general counseling and advice on contraception, Z98.890 - Other specified postprocedural states HIV Ab/Ag Today Z01.419 - Encounter for gynecological examination (general) (routine) without abnormal findings, Z11.3 - Encounter for screening for infections with a predominantly sexual mode of transmission, Z12.4 - Encounter for screening for malignant neoplasm of cervix, Z30.09 - Encounter for other general counseling and advice on contraception, Z98.890 - Other specified postprocedural states Coding Level of Care Code Est Pt Prev Care 40-64y(22952) Diagnoses Cervical cancer screening Z12.4 Encounter for screening examination for sexually transmitted disease Z11.3 Hx of abdominoplasty Z98.890 Well woman exam with routine gynecological exam Z01.419 control counseling Z30.09
[2025-05-22 13:27] VITALS: BP 122/72; BMI 33.3
--- OUTSIDE RECORDS SUMMARY | 2025-05-22 16:52 | XMS_ITS | Clinical Summary ---
Author Organization [facility] Address [address] [place] [address] Phone Care Team Providers Care Washroom Attendant Name Role Phone Yasmine Mao MD Primary Care Provider [phone] Allergies Active Allergy Reactions Criticality Noted Date [...] to complete this topic Insurance MEDICAID - [place] Care Teams Washroom Attendant Relationship Specialty Start Date End Date Yasmine Mao MD [address] [place] [address] PCP - General Avionic Technician 06/12/24
== END 2025-05-22 14:37 | disposition home or self-care (01) ==
LOC: HO.HWS 13:17
PROVIDERS: PCP General Practice; Visit Provider Advanced Practice Midwife
DX: Z01.419 Encounter for gynecological examination (general) (routine) without abnormal findings (principal); Z11.3 Encounter for screening for infections with a predominantly sexual mode of transmission; Z98.890 Other specified postprocedural states; Z30.09 Encounter for other general counseling and advice on contraception
CPT/HCPCS: 99396; 99459

== ENCOUNTER 2025-05-22 13:16 | Outpatient (REF) | payer MEDICAID, SELFPAY ==
--- OUTSIDE RECORDS SUMMARY | 2025-05-22 18:24 | XMS_ITS | Encounter Summary ---
Author Organization [employer] Address [address] [facility] 7t [place] [address] Care Team Providers Care Nursing Professor Name Role Phone Yasmine Mao MD Primary Care Provider [phone] Reason for Visit * Reason Onset Date Comments Referral 01/04/2024 Encounter Details Date Type Department Care Team (Late st Contact Info) Description 01/04/2024 Telephone [facility] [address] [place], [place] [phone] Yasmine Mao MD [address] [place], [place] [phone] Referral Social History Tobacco Use Types Packs/Day [...] 11:35 AM EDT Tc from pt requesting [facility] referral to be re faxed to office. [facility] office has not received referral. documented in this encounter Plan of Treatment Upcoming Encounters Date Type Department Care Team (Late st Contact Info) Description 07/18/2025 9:00 AM EST Office Visit [facility] OPTOMETRY [address] [place] [address] Gerayolanda Emilia, OD [address] [place] [address] 07/19/2025 4:00 PM EST Office Visit [facility] MEDICINE [address] [place] [address] Yasmine Mao MD [address] [place] [address] documented as of this encounter Visit Diagnoses Not on filedocumented in this encounter Care Teams Nursing Professor Relationship Specialty Start Date End Date Yasmine Mao MD [address] [place] [address] PCP - General Family Medicine 10/30/20 documented as of this encounter
--- OUTSIDE RECORDS SUMMARY | 2025-05-22 18:24 | XMS_ITS | Encounter Summary ---
Author Organization [employer] Address [address] [place] [address] 7 [place] [address] Care Team Providers Care High Tension Tester Name Role Phone Yasmine Mao MD Primary Care Provider [phone] Encounter Details Date Type Department Care Team (Late st Contact Info) Description 07/18/2022 Orders Only [facility] [address] [place] [address] Ana Phelan LPN Social History Tobacco Use [...] Description 07/18/2025 9:00 AM EST Office Visit [facility] OPTOMETRY [address] [place] [address] Munir Emilia, OD [address] [place] [address] 07/19/2025 4:00 PM EST Office Visit [facility] MEDICINE [address] [place] [address] Yasmine Mao MD [address] [place] [address] documented as of this encounter Procedures Procedure Name Priority Date/Time Associated Diagnosis Comments BI MAMMOGRAM SCREENING TOMOSYNTHESIS BILATERAL Routine 08/08/2022 9:30 AM EST documented in this encounter Results * BI Mammogram Screening Tomosynthesis Bilateral (08/08/2022 9:30 AM EST) Anatomical Region Laterality Modality Breast Bilateral Mammography 08/08/2022 9:30 AM EST Narrative 08/11/2022 12:55 PM EST [facility] [address] [place] [address] Mammography Report Signed Patient: Gayathri Rebolledo MR#: [id number] : 1980 Acct:[id number] Age/Sex: 42 / F ADM Date: 08/08/22 Loc: [facility] Attending Dr: Yasmine Mao MD Ordering Physician: Yasmine Mao Results: 1Negative Date of Service: 08/08/22 Follow Up: 1 Year From Orig inal Mammogram Procedure(s): MM tomosynthesis screening BI Accession Number(s): [id number] cc: Yasmine Mao EXAMINATION: MM SCREENING DIGITAL [...] in OV> 08/11/22 1252 DD/ 0930 TD/TT: Estimator Jewelry: JENNIFER Procedure Note Donotuseinterpreter, Image - 08/11/2022 [facility] [address] [place], [place] [address] Mammography Report Signed Patient: Luis Rebolledo#: [id number] : 1980Acct:[id number] Age/Sex: 42 / FADM Date: 08/08/22 Loc: [facility] Attending Dr: Yasmine Mao MD Ordering Physician: Justo Maoults: 1Negative Date of Service: 08/08/22Follow Up: 1 Year From Orig inal Mammogram Procedure(s): MM tomosynthesis screening BI Accession Number(s): [id number] cc: Yasmine Mao EXAMINATION: MM SCREENING DIGITAL [...] in OV> 08/11/22 1252 DD/ 0930 TD/TT: Estimator Jewelry: RODRIGUEZ [facility] External Provider IMG BI PROCEDURES Edited Result - Final documented in this encounter Visit Diagnoses Not on filedocumented in this encounter Care Teams High Tension Tester Relationship Specialty Start Date End Date Yasmine Mao MD [address] [place] [address] PCP - General Family Medicine 10/30/20 documented as of this encounter
--- OUTSIDE RECORDS SUMMARY | 2025-05-22 18:24 | XMS_ITS | Encounter Summary ---
Author Organization [employer] Address [address] [place] [address] 7t [place] [address] Care Team Providers Care Neuro Psych Sales Specialist Name Role Phone Yasmine Mao MD Primary Care Provider [phone] Encounter Details Date Type Department Care Team (Latest Contact Info) Description 09/30/2018 Abstract [facility] CONVERSIONS Dental, Provider, DDS Social [...] Description 07/18/2025 9:00 AM EST Office Visit [facility] OPTOMETRY [address] [place] [address] Emilia Amaral, OD [address] [place] [address] 07/19/2025 4:00 PM EST Office Visit [facility] MEDICINE [address] [place] [address] Yasmine Mao MD [address] [place], [place] [phone] documented as of this encounter Visit Diagnoses Not on filedocumented in this encounter Care Teams Neuro Psych Sales Specialist Relationship Specialty Start Date End Date Yasmine Mao MD [address] [place] [address] PCP - General Family Medicine 10/30/20 documented as of this encounter
--- OUTSIDE RECORDS SUMMARY | 2025-05-22 18:24 | XMS_ITS | Encounter Summary ---
Author Organization [employer] Address [address] [facility] 7t [place] [address] Care Team Providers Care Concrete Mixer Truck Driver Name Role Phone Yasmine Mao MD Primary Care Provider [phone] Reason for Visit * Reason Onset Date Comments triage 05/22/2025 Encounter Details Date Type Department Care Team (Late st Contact Info) Description 05/22/2025 Telephone [facility] MEDICINE [address] [place], [place] [phone] Yasmine Mao MD [address] [place], [place] [phone] triage Social History Tobacco Use Types Packs/Day Years [...] encounter Miscellaneous Notes * Telephone Encounter - Eneida Cano RN - 05/22/2025 3:23 PM EDT Called pt to triage, spoke to pt. Through [employer] Bag Press Operator. Pt states seen 04/27 for multiple concerns and was given referral. Pt states has not heard anything as yet and the upper back pain she spoke to provider about has not resolved. Advised the referral was sent and she should here about an appointment soon. Advised to call back in 5-7 days if she still has not heard from Rheumatology. Advised to continue with recommendations and call back as needed. Advised home care: rest, ice, heat OTC pain reliever as needed, and call back as needed. Pt understands and agrees with plan. Insurance verified. * Telephone Encounter - Dana Mendoza - 05/22/2025 2:21 PM EDT Symptom: Back Pain - Not From Injury Outcome: Schedule an appointment to be seen within 3 days Reason: Caller denied all higher acuity questions The caller accepted this outcome. documented in this encounter Plan of Treatment Upcoming Encounters Date Type Department Care Team (Late st Contact Info) Description 07/18/2025 9:00 AM EST Office Visit [facility] OPTOMETRY [address] [place] [address] Emilia Amaral, OD [address] [place] [address] 07/19/2025 4:00 PM EST Office Visit [facility] MEDICINE [address] [place] [address] Yasmine Mao MD [address] [place] [address] documented as of this encounter Visit Diagnoses Not on filedocumented in this encounter Additional Health Concerns Assessment Noted Time PHQ-9 Depression Total Score: 8 02/26/20 24 10:10 AM EDT documented as of this encounter Care Teams Concrete Mixer Truck Driver Relationship Specialty Start Date End Date Yasmine Mao MD [address] [place] [address] PCP - General Family Medicine 10/30/20 documented as of this encounter
--- OUTSIDE RECORDS SUMMARY | 2025-05-22 18:24 | XMS_ITS | Encounter Summary ---
Author Organization [employer] Address [address] [place] [address] 7 [place] [address] Care Team Providers Care Tobacco Sprayer Name Role Phone Yasmine Mao MD Primary Care Provider [phone] Reason for Referral * Consultation (Routine) - Closed Specialty Diagnoses / Procedures Referred By Farhat callahan Referred To Contact Obstetrics and Gynecology Diagnoses Screening for cervical cancer Yasmine Mao MD [address] [place] [address] Phone: tel: fax: [address] Phone: tel: fax: Referral ID Status Reason Start Date Expiration Date V isits Requested Visits Authorized [id number] Closed Specialty Services Required 09/29/2023 09/27/2024 1 12 Encounter Details Date Type Department Care Team (Late st Contact Info) Description 09/25/2023 Orders Only [facility] MEDICINE [address] [place] [address] [phone] Yasmine Mao MD [address] [place] [address] [phone] Screening for cervical cancer (Primary Dx) Social [...] Description 07/18/2025 9:00 AM EST Office Visit [facility] OPTOMETRY [address] [place] [address] Emilia Amaral OD [address] [place] [address] 07/19/2025 4:00 PM EST Office Visit [facility] MEDICINE [address] [place] [address] Yasmine Mao MD 230 [place] [address] Scheduled Referrals Name Type Priority Associated Diagnoses Order Schedule Referral to Obstetrics / Gynecology Outpatient Referral Routine Screening for cervical cancer Expected: 09/25/2023 (Approximate), Expires: 09/24/2024 documented as of this encounter Visit Diagnoses Diagnosis Screening for cervical cancer- Primary Screening for malignant neoplasm of the cervix documented in this encounter Care Teams Tobacco Sprayer Relationship Specialty Start Date End Date Yasmine Mao MD [address] [place] [address] PCP - General Family Medicine 10/30/20 documented as of this encounter
--- OUTSIDE RECORDS SUMMARY | 2025-05-22 18:24 | XMS_ITS | Encounter Summary ---
Author Organization [employer] Address [address] [facility] 7t [place] [address] Care Team Providers Care Diesel Fleet Mechanic Name Role Phone Yasmine Mao MD Primary Care Provider [phone] Reason for Visit * Reason Onset Date Comments Results 05/02/2025 Encounter Details Date Type Department Care Team (Late st Contact Info) Description 05/02/2025 Telephone [facility] MEDICINE [address] [place], [place] [phone] Yasmine Mao MD 230 [place], [place] [phone] Results Social History Tobacco Use Types Packs/Day Years [...] encounter Miscellaneous Notes * Telephone Encounter - Katherine Venegas - 05/02/2025 10:17 AM EDT TC from pt requesting call back regarding Results. Type of results: Blood test Date when done: 04/28 Facility: [facility] Contact pt at [phone] Need tie puller documented in this encounter Plan of Treatment Upcoming Encounters Date Type Department Care Team ([facility] st Contact Info) Description 07/18/2025 9:00 AM EST Office Visit [facility] OPTOMETRY [address] [place] [address] Emilia Amaral, OD [address] [place] [address] 07/19/2025 4:00 PM EST Office Visit [facility] MEDICINE [address] [place] [address] Yasmine Mao MD [address] [place] [address] documented as of this encounter Visit Diagnoses Not on filedocumented in this encounter Additional Health Concerns Assessment Noted Time PHQ-9 Depression Total Score: 8 02/26/20 24 10:10 AM EDT documented as of this encounter Care Teams Diesel Fleet Mechanic Relationship Specialty Start Date End Date Yasmine Mao MD [address] [place] [address] PCP - General Family Medicine 10/30/20 documented as of this encounter
--- OUTSIDE RECORDS SUMMARY | 2025-05-22 18:24 | XMS_ITS | Encounter Summary ---
Author Organization [employer] Address [address] [facility] [address] 7[address] [place] [address] Care Team Providers Care Electrotyper Apprentice Name Role Phone Yasmine Mao MD Primary Care Provider [phone] Reason for Visit * Reason Comments Med Refill Encounter Details Date Type Department Care Team (Late st Contact Info) Description 06/21/2023 Refill [facility] [address] [place], [place] [phone] Sarah Beth Reynolds DO [address] [place], [place] [phone] Social History Tobacco Use Types Packs/Day Years [...] Description 07/18/2025 9:00 AM EST Office Visit [facility] OPTOMETRY [address] [place] [address] Emilia Amaral, OD 267 [place] [address] 07/19/2025 4:00 PM EST Office Visit [facility] MEDICINE [address] [place] [address] Yasmine Mao MD [address] [place] [address] documented as of this encounter Visit Diagnoses Not on filedocumented in this encounter Care Teams Electrotyper Apprentice Relationship Specialty Start Date End Date Yasmine Mao MD [address] [place] [address] PCP - General Family Medicine 10/30/20 documented as of this encounter
--- OUTSIDE RECORDS SUMMARY | 2025-05-22 18:24 | XMS_ITS | Encounter Summary ---
Author Organization [employer] Address [address] [place] [address] 7t [place] [address] Care Team Providers Care Wet Pan Mixer Name Role Phone Yasmine Mao MD Primary Care Provider [phone] Encounter Details Date Type Department Care Team (Late st Contact Info) Description 09/10/2022 Orders Only [facility] MEDICINE 230 [place], [place] [phone] Yasmine Mao MD [address] [place], [place] [phone] Essential hypertension (Primary Dx); Other specified hypothyroidism [...] Description 07/18/2025 9:00 AM EST Office Visit [facility] OPTOMETRY [address] [place], [place] [phone] Emilia Amaral, OD [address] [place] [address] 07/19/2025 4:00 PM EST Office Visit [facility] MEDICINE 230 [place], [place] [phone] Yasmine Mao MD [address] [place], [place] [phone] documented as of this encounter Procedures Procedure Name Priority Date/Time Associated Diagnosis Comments TSH W/REFLEX TO FT4 Routine 09/16/2022 1 2:26 PM EST Other specified hypothyroidism CBC WITH AUTO DIFFERENTIAL Routine 09/16/2022 12:26 PM EST Essential hypertension documented in this encounter Results * (ABNORMAL) CBC auto differential (09/16/2022 12:26 PM EST) White Blood Cell Count 8.3 3.8 - 10.8 Thousand/ uL [facility] Red Blood Cell Count 4.20 3.80 - 5.10 Million/u L [facility] Hemoglobin 12.6 11.7 - 15.5 g/dL [facility] Hematocrit 37.0 35.0 - 45.0 % [facility] MCV 88.1 80.0 - 100.0 fL [facility] MCH 30.0 27.0 - 33.0 pg [facility] MCHC 34.1 32.0 - 36.0 g/dL [facility] RDW 12.1 11.0 - 15.0 % [facility] Platelet Count 414(H) 140 - 400 Thousand/ uL [facility] MPV 10.5 7.5 - 12.5 fL [facility] Absolute Neutrophils 4,789 1,500 - 7,800 cells/uL [facility] Absolute Lymphocytes 2,689 850 - 3,900 cells/uL [facility] Absolute Monocytes 465 200 - 950 cells/uL [facility] Absolute Eosinophils 291 15 - 500 cells/uL [facility] [employer] [facility] Absolute Basophils 66 0 - 200 cells/uL [facility] [place] [facility] [facility] Neutrophils 57.7 % [facility] [place] [employer] Lymphocytes 32.4 % [facility] [place] [employer] [facility] Monocytes 5.6 % [facility] [place] [employer] Eosinophils 3.5 % [facility] [place] [employer] [facility] Basophils 0.8 % [facility] [facility] [place] [employer] Blood Venous blood specimen / Unknown 09/16/2022 12:26 PM EST 09/16/2022 12:27 PM EST Narrative [facility] - 09/17/2022 5:01 AM EST FASTING:NO FASTING: NO us Yasmine Mao MD LAB BLOOD ORDERABLES Final Res ult [facility] [address], [place] [address] Xiaoi Robert [place] [employer] [facility] [address] [facility], (N[address]) [place] [address] * TSH W/Reflex to FT4 (09/16/2022 12:26 PM EST) TSH w/Reflex to FT4 2.33 mIU/L [facility] [employer] [facility] Comment: Reference Range > or = 20 Years 0.40-4.50 Ranges First trimester 0.26-2.66 Second trimester 0.55-2.73 Third trimester 0.43-2.91 09/16/2022 12:2 6 PM EST 09/16/2022 12:27 PM EST Narrative [facility] - 09/17/2022 5:01 AM EST FASTING:NO FASTING: NO us Yasmine Mao MD LAB BLOOD ORDERABLES Final Res ult [facility], [place] [address] Xiaoi Robert [facility] [facility] [address] [facility], ([address]) [place] [address] documented in this encounter Visit Diagnoses Diagnosis Essential hypertension- Primary Unspecified essential hypertension Other specified hypothyroidism documented in this encounter Care Teams Wet Pan Mixer Relationship Specialty Start Date End Date Yasmine Mao MD [address] [place] [address] PCP - General Family Medicine 10/30/20 documented as of this encounter
--- OUTSIDE RECORDS SUMMARY | 2025-05-22 18:24 | XMS_ITS | Encounter Summary ---
Author Organization [employer] Address [address] [place] [address] 7[address] [place] [address] Care Team Providers Care Upper Caser Name Role Phone Yasmine Mao MD Primary Care Provider [phone] Reason for Visit * Reason Onset Date Comments Nurse Triage 03/12/2023 Encounter Details Date Type Department Care Team (Late st Contact Info) Description 03/12/2023 Telephone [facility] MEDICINE [address] [place], [place] [phone] Yasmine Mao MD [address] [place], [place] [phone] Nurse Triage Social History Tobacco Use Types [...] 03/12/2023 1:05 PM EDT Triage call with [place] [employer] Consultant ID [id number] Pt is calling in regards to bumps [...] the hip areas. Advised to come to [facility] today to have provider see Pt. [...] The caller accepted this outcome Patient speaks welsh. documented in this encounter Plan of Treatment Upcoming Encounters Date Type Department Care Team (Late st Contact Info) Description 07/18/2025 9:00 AM EST Office Visit [facility] OPTOMETRY [address] [place] [address] Emilia Amaral, OD 267 [place] [address] 07/19/2025 4:00 PM EST Office Visit [facility] MEDICINE [address] [place] [address] Yasmine Mao MD [address] [place] [address] documented as of this encounter Visit Diagnoses Not on filedocumented in this encounter Care Teams Upper Caser Relationship Specialty Start Date End Date Yasmine Mao MD [address] [place] [address] PCP - General Family Medicine 10/30/20 documented as of this encounter
--- OUTSIDE RECORDS SUMMARY | 2025-05-22 18:24 | XMS_ITS | Clinical Summary ---
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 28 g 1 3 Active cholecalciferol VITAMIN D (Vitamin D-3) 50 MCG (1999 UT) capsuleIndicatio ns:Vitamin D deficiency TAKE 3 CAPSULE BY MOUTH ONCE A DAY AFTER A MEAL 4 Active B Complex Vitamins (vitamin B complex) tabletIndication s:Hair loss Take 1 tablet by mouth Once per day. 90 tablet 3 4 Active dextran 70-hypromellose (artificial tears) 0.1-0.3 % ophthalmic solutionIndicati ons:Dry eyes, bilateral Administer 1 drop into both eyes if needed in the morning, at noon, and at bedtime for dry eyes. 15 mL 6 4 06/09/20 25 Active EPINEPHrine (Epipen) 0.3 MG/0.3ML injection syringeIndicatio ns:Anaphylaxis, sequela Inject 0.3 mL (0.3 mg) as directed 1 (one) time if needed for anaphylaxis for up to 2 doses. Inject into upper leg. Call 911 after use. 1 each 1 5 Active busPIRone (Buspar) 5 MG tabletIndication s:Anxiety Take 1 tablet by mouth if needed in the morning and at bedtime for anxiety. 5 Active baclofen (Lioresal) 20 MG tablet Take 1 tablet (20 mg) by mouth 2 times daily. 60 tablet 6 5 Active propranolol (Inderal) 40 MG tabletIndication s:Migraine with aura and without status migrainosus, not intractable Take 1 tablet (40 mg) by mouth 2 times daily. 60 tablet 1 5 12/07/19 26 Active meclizine (Antivert) 12.5 MG tablet 12.5 MG BY MOUTH 3 TIMES A DAY NEEDED FOR DIZZINESS 5 Active levothyroxine (Synthroid, Levoxyl) 50 MCG tablet TAKE 1 TABLET BY MOUTH EVERY DAY BEFORE BREAKFAST 90 tablet 3 5 Active lisinopril-hydro CHLOROthiazide 20-25 MG tablet TAKE 1 TABLET BY MOUTH EVERY DAY 90 tablet 3 5 Active LORazepam (Ativan) 0.5 MG tablet Take 1 tab po 45 minutes before flight, may repeat once after 1 hour prn anxiety, gambian Do not drive with medicaion. 2 tablet 5 Active diphenhydrAMINE (BENADryl) 25 MG capsule Take 2 capsules (50 mg) by mouth every 6 (six) hours if needed for itching. May take 1-2 capsules prn rashor itching 30 capsule 5 04/04/20 26 Active triamcinolone (Kenalog) 0.1 % cream Apply topically 2 times daily. 30 g 1 5 Active Blood Pressure Monitoring (Blood Pressure Cuff) miscIndications: Elevated blood pressure reading USE TO CHECK BLOOD PRESSURE DIRECTED 1 each 5 Active cetirizine (ZyrTEC) 10 MG tablet TAKE 1 TABLET BY MOUTH EVERY DAY NEEDED 90 tablet 5 Active Active Problems Problem Noted Date Diagnosed Date Hot flashes 04/27/2025 Assessment & Plan (04/28/2025 1:01 PM EDT): Perimenopause? Blood work ordered today she will be contacted with results Dizziness 04/27/2025 Assessment & Plan (04/28/2025 1:01 PM EDT): Blood work ordered today she will be contacted with results UTI symptoms 04/27/2025 Assessment & Plan (04/28/2025 12:58 PM EDT): Drink plenty of water do not hold the urine UA and culture ordered patient will be contacted with results Diffuse pain 04/27/2025 Assessment & Plan (04/28/2025 1:01 PM EDT): Blood work ordered today she will be contacted with results Migraine with aura and witho ut status [...] EDT): Possibly due to seafood/crab eaten at [employer] after acute anaphylaxis not concerning for [...] renal cyst 04/25/2019 Overview (01/21/2023): Followed by [facility] renal, f/u annually [...] Encounters Date Type Department Care Team Description 05/22/[address] [phone] Yasmine Mao MD triage 05/15/2025 Results Follow-Up [address] [address] Leela Salgado MD POCT Urinalysis, CBC auto differential, Comprehensive Metabolic Panel, Additional followed-up results: 8 05/15/2025 Orders Only [facility] [place] [place] [address] Lelea Salgado MD Other fatigue (Primary Dx); Positive JERRICA (antinuclear antibody) 05/02/2025 Telephone [facility] [place] [address] Yasmine Mao MD Results 04/27/2025 3:15 PM EDT Office Visit [facility] MEDICINE [address] [place] [phone] Leela Salgado MD Hot flashes (Primary Dx); Dizziness; UTI symptoms; Diffuse pain 04/27/2025 Orders Only [facility] MEDICINE [address] [place] [phone] Yasmine Mao MD 04/27/2025 Travel 04/06/2025 Refill [facility] CHC MED & PEDS [address] [place] [address] Yasmine Mao MD 04/04/2025 10:20 AM EDT Office Visit [facility] WALK-IN CENTER [address] [place] [phone] Richard Woodard MD Local reaction to insect sting, accidental or unintentional, initial encounter (Primary Dx); Essential hypertension; Elevated blood pressure reading 04/04/2025 Refill [facility] MEDICINE [address] [place] [phone] Yasmine Mao MD Elevated blood pressure reading 04/04/2025 Refill [facility] WALK-IN CENTER [address] [place] [phone] Richard Woodard MD 04/04/2025 Travel 04/04/[address] [phone] Yasmine Mao MD Nurse Triage 03/01/[address] [address] Yasmine Mao MD Nurse Triage from Last 3 Months Immunizations Immunization Administration Dates Next Due Hep B, adult 02/06/2017,09/29/2016,05/26/2016 Influenza injectable quadriv alent IIV4 with preservative 06/01/2018,05/26/2016 Influenza injectable quadriv alent preservative free 09/23/2021,04/25/2019 Influenza, IIV3, injectable 08/21/2015, 1 Influenza, Split (incl. arina fied surface antigen) 04/16/2012 Pfizer Covid-19 Vaccine 12+ 02/26/2021,07/14/202 1 Pneumococcal Polysaccharide PPSV23 02/25/2008 TD (adult), [...] Description 07/18/2025 9:00 AM EST Office Visit [facility] OPTOMETRY [address] [place] [address] Emilia Amaral, OD [address] [place] [address] 07/19/2025 4:00 PM EST Office Visit [facility] MEDICINE [address] [place] [address] Yasmine Mao MD [address] [place] [address] Health Maintenance Due Date Last Done Comments HPV Vaccines (1 - 3-dose series) 1997 Hepatitis A Vaccines (1 of 2 - Risk 2-dose series) 2001 Cervical Cancer Screening 11/24/2024 HPV/Cotest 11/24/2024 11/25/2019 Depression Screening 02/25/2025 02/26/2024, 02/26/20 24 SDOH Screening 02/25/2025 02/26/2024 COVID-19 Vaccine ( season) 2025 02/26/2021, 02/06/2021 Influenza Vaccine (#1) 2025 2, 04/25/2019, 06/01/2018, Additional history exists Mammogram 08/19/2025 08/19/2024, 07/27, 08/08/2022, Additional history [...] Completed 02/06/2017, 09/29/2016, 05/26/2016 HIV Screening Completed 04/28/2025, 10/2023, 08/09/2020 Hepatitis C Screening Completed 04/28/2025 , 05/30/2024, 08/09/2020 HIB Vaccines Aged Out No longer eligi [...] Procedure Name Priority Date/Time Associated Diagnosis Comments LH Routine 04/28/2025 11:07 AM EDT Hot flashes FSH Routine 04/28/2025 11:07 AM EDT Hot flashes JERRICA SCREEN, IFA, W/REFL TITER AND PATTERN Routine 04/28/2025 11:07 AM EDT Dizziness Diffuse pain HIV 1/2 ANTIGEN/ANTIBODY, FOURTH GENERATION W/RFL Routine 04/28/2025 11:07 AM EDT Dizziness Diffuse pain TSH W/REFLEX TO FT4 Routine 04/28/2025 1 1:07 AM EDT Hot flashes Dizziness HEPATITIS PANEL, GENERAL Routine 04/28/2025 11:07 AM EDT Dizziness HEMOGLOBIN A1C Routine 04/28/2025 11:07 AM EDT Dizziness COMPREHENSIVE METABOLIC PANEL Routine 04/28/2025 11:07 AM EDT Dizziness CBC WITH AUTO DIFFERENTIAL Routine 04/28/2025 11:07 AM EDT Dizziness CULTURE, URINE, ROUTINE Routine 04/27/2025 4:00 PM EDT CULTURE, URINE, ROUTINE Routine 04/27/2025 4:00 PM EDT UTI symptoms POCT URINALYSIS DIPSTICK Routine 04/27/2025 3:40 PM EDT UTI symptoms BI MAMMOGRAM SCREENING TOMOSYNTHESIS BILATERAL Routine 08/19/2024 2:45 PM EST PAP SMEAR Routine 05/17/2024 LIPID PANEL WITH REFLEX TO DIRECT LDL Routine 02/26/2024 10:43 AM EDT Other chest pain Essential hypertension HM PAP/HPV Routine 11/25/2019 from Last 3 Months or Most Recently Relevant to Health Maintenance Results * TSH with Reflex to Free T4 (04/28/2025 11:07 AM EDT) TSH reflex Free T4 2.72 0.32 - 4.0 uIU/mL [facility] Blood Venous blood specimen / Unknown 04/28/2025 11:07 AM EDT 04/28/2025 1:21 PM EDT us Leela Cuello MD LAB BLOOD ORDERABLES Final Result Performing Organization Address [facility]/ZIP Co de Phone Number [facility] [address] [place] [phone] * Hepatitis Panel, General (04/28/2025 11:07 AM EDT) Hepatitis A IgM Nonreactive Nonreactive [facility] Comment:IgM antibodies to WHITE V not detected; does not exclude earlyacute or recovered HAV infection. ~Hepatitis B Surface Antibody REACTIVE Nonreactive [facility] Comment:REACTIVE: > 11.99 mI U/mL Hepatitis B Core Antibody Nonreactive Nonreactive [facility] Hepatitis C Antibody Nonreactive Nonreactive [facility] Comment:Antibodies to HCV no t detected; does not exclude early acuteHCV infection. Hepatitis B Surface Ag Negative Negative [facility] Blood Venous blood specimen / Unknown 04/28/2025 11:07 AM EDT 04/28/2025 1:21 PM EDT us Leela Cuello MD LAB BLOOD ORDERABLES Final Result Performing Organization Address City/[facility]/ZIP Co de Phone Number [facility] [address] [place] [address] [phone] * (ABNORMAL) CBC auto differential (04/28/2025 11:07 AM EDT) White Blood Count 8.2 4.8 - 10.8 X10*3/uL [facility] Red Blood Count 4.39 4.20 - 5.50 X10*6/uL [facility] Hemoglobin 12.8 12.0 - 16.0 g/dl [facility] Hematocrit 38.4 37.0 - 47.0 % [facility] Mean Corpuscular Volume 87.5 80.0 - 98.0 fL [facility] Mean Corpuscular Hemoglobin 29.2 27.0 - 33.0 pg [facility] Mean Corpuscular HGB Conc 33.3 31.0 - 35.0 g/dl [facility] Red Cell Distribution Width 12.8 11.0 - 16.0 % [facility] Platelet Count 483(H) 160 - 400 X10*3/uL [facility] Mean Platelet Volume 10.0 9.4 - 12.3 fL [facility] Neutrophils Percent Auto 67.7 45 - 73 % [facility] Imm Gran Pct Auto 0.9(H) 0.0 - 0.4 % [facility] Lymphocytes Percent Auto 23.2 20 - 40 % [facility] Monocytes Percent Auto 6.0 2 - 11 % [facility] Eosinophils Percent Auto 1.3 0 - 4 % [facility] Basophils Percent Auto 0.9 0 - 2 % [facility] NRBC Pct Auto 0.0 0.0 - 0.2 /100WBC [facility] Neutrophils Absolute Auto 5.5 2.0 - 8.3 x10*3/uL [facility] Imm Gran Abs Auto 0.07(H) 0.00 - 0.03 X10*3/uL [facility] Lymphocytes Absolute Auto 1.9 1.2 - 4.9 X10*3/uL [facility] Monocytes Absolute Auto 0.5 0.1 - 1.2 X10*3/uL [facility] Eosinophils Absolute Auto 0.1 0.0 - 0.4 X10*3/uL [facility] Basophils Absolute Auto 0.1 0.0 - 0.2 X10*3/uL [facility] NRBC Abs Auto 0.000 0.0 - 0.012 X10*3/uL [facility] Blood Venous blood specimen / Unknown 04/28/2025 11:07 AM EDT 04/28/2025 1:21 PM EDT Leela Cuello MD LAB BLOOD ORDERABLES Final Result Performing Organization Address [facility] Co de Phone Number [facility] [address] [place] [phone] * HIV-1/2 Antigen and Antibodies, Fourth Generation, with Reflexes (04/28/2025 11:07 AM EDT) HIV AB/AG Nonreactive Nonreactive [facility] Comment:HIV-1 p24 Ag and/or HIV-1/HIV-2 Ab not detected.A test result that is nonreactive does not exclude thepossibility of exposure to or infection with HIV-1 and/orHIV-2. Nonreactive results in this assay for individualswith prior exposure to HIV-1 and/or HIV-2 may be due toantigen and antibody levels that are below the limit ofdetection of this assay.The [employer] HIV Ag/Ab Combo assay result andsupplemental assay results should be interpreted inconjunction with the patient's clinical presentation,history and other laboratory results. If the results areinconsistent with clinical evidence, additional testing issuggested to confirm the result. Blood Venous blood specimen / Unknown 04/28/2025 11:07 AM EDT 04/28/2025 1:21 PM EDT us Leela Cuello MD LAB BLOOD ORDERABLES Final Result Performing Organization Address [facility]/ZIP Co de Phone Number [facility] [address] [place] [phone] * (ABNORMAL) JERRICA Screen,IFA, with Reflex to Titer and Pattern (04/28/2025 11:07 AM EDT) Anti Nuclear Antibody Screen POSITIVE (A) NEGATIVE [facility] Comment:JERRICA IFA is a first l ine screen for detecting thepresence of up to approximately 150 autoantibodies invarious autoimmune diseases. A positive JERRICA IFA resultis suggestive of autoimmune disease and reflexes totiter and pattern. Further laboratory testing may beconsidered if clinically indicated.For additional information, please refer tohttp://education.Treatful/faq/SMD507(This link is being provided for informational/educational purposes only.) JERRICA Titer 1:640(A) titer [facility] Comment:Reference Range <1:4 0 Negative 1:40-1:80 Low Antibody Level >1:80 Elevated Antibody Level JERRICA Pattern (A) [facility] Comment:Nuclear, Few Nuclear Dots Abnormal Flag: ANuclear dots (1-6 in number per cell) pattern is seen inSjogren's syndrome, systemic lupus erythematosus (SLE),systemic sclerosis (scleroderma), polymyositis, andasymptomatic individuals.AC-7: Few Nuclear DotsInternational Consensus on JERRICA Patterns(https://doi.org/10.1515/jtay-7093-7029) JERRICA TITER 2 (REF LAB) 1:640(A) titer [facility] Comment:Reference Range <1:4 0 Negative 1:40-1:80 Low Antibody Level >1:80 Elevated Antibody Level JERRICA Pattern 2 (A) [facility] Comment:Nuclear, Dense Fine Speckled Abnormal Flag: ADense fine speckled pattern is seen in normalindividuals and rarely associated with systemic lupuserythematosis (SLE), Sjogren's syndrome and systemicsclerosis.AC-2: Dense Fine SpeckledInternational Consensus on JERRICA Patterns(https://doi.org/10.1515/gwyi-9286-9748)THIS TEST WAS PERFORMED AT:[address] [place] [phone] MCFADDEN MD Blood Venous blood specimen / Unknown 04/28/2025 11:07 AM EDT 04/28/2025 1:21 PM EDT Leela Cuello MD LAB BLOOD ORDERABLES Final Result [facility] [address] [place] [phone] * Hemoglobin A1c (04/28/2025 11:07 AM EDT) Hemoglobin A1c 5.4 <6.0 % [facility] Comment:Hemoglobin A1C Refer ence Range Adults: 4.8 - 6.0 % Non diabetic: < 6.0 % Goal: < 7.0 %Additional Action Suggested: > 8.0 %Note: Hemoglobin A1c results are invalid for patients with abnormal amounts of HbF. Blood transfusions may impact the HbA1c concentration in the patient sample. Estimated Average Glucose 108 mg/dL [facility] Comment:eAG = Estimated ave rage glucose which is %A1C expressed asaverage glucose, using the formula of the S7P-FqbmeeoOghomsu Glucose study (ADAG), Diabetes Care, Vol.31,#8,Feb. 2007 Blood Venous blood specimen / Unknown 04/28/2025 11:07 AM EDT 04/28/2025 1:21 PM EDT us Leela Cuello MD LAB BLOOD ORDERABLES Final Result [facility] [address] [place] [phone] [phone] * LH (04/28/2025 11:07 AM EDT) Lutenizing Hormone 7.3 mIU/mL [facility] Comment:Reference Range Foll icular Phase 1.9-12.5 Mid-Cycle Peak 8.7-76.3 Luteal Phase 0.5-16.9 Postmenopausal 10.0-54.7THIS TEST WAS PERFORMED AT:[address] [place] [phone] MCFADDEN MD Blood Venous blood specimen / Unknown 04/28/2025 11:07 AM EDT 04/28/2025 1:21 PM EDT Leela Cuello MD LAB BLOOD ORDERABLES Final Result Performing Organization Address City/State/[facility] de Phone Number [facility] [address] [place] [phone] * FSH (04/28/2025 11:07 AM EDT) Pathologist [facility] Follicle Stimulating Hormone 8.2 mIU/mL [facility] Comment:Reference Range Foll icular Phase 2.5-10.2 Mid-cycle Peak 3.1-17.7 Luteal Phase 1.5- 9.1 Postmenopausal 23.0-116.3THIS TEST WAS PERFORMED AT:[address] [place] [phone] MCFADDEN MD Blood Venous blood specimen / Unknown 04/28/2025 11:07 AM EDT 04/28/2025 1:21 PM EDT Leela Cuello MD LAB BLOOD ORDERABLES Final Result Performing Organization Address [facility] de Phone Number [facility] [address] [place] [phone] * (ABNORMAL) Comprehensive Metabolic Panel (04/28/2025 11:07 AM EDT) Pathologist [facility] Sodium 137 135 - 145 mmol/L [facility] Potassium 3.5 3.3 - 5.1 mmol/L [facility] Chloride 100 96 - 108 mmol/L [facility] Carbon Dioxide 28 22 - 29 mmol/L [facility] Anion Gap 13 12 - 20 [facility] Urea Nitrogen (BUN) 6(L) 9 - 16 mg/dL [facility] Creatinine, Serum 0.50 0.5 - 1.4 mg/dL [facility] Estimated Glomerular Filt Rate >60 [facility] Comment:Chronic Kidney Disea se: Estimated GFR < 60 mL/min/1.59x3Gcjldb Kidney Disease: Estimated GFR < 15 mL/min/1.73m2 Glucose 93 60 - 115 mg/dL [facility] Calcium 9.1 8.4 - 10.2 mg/dL [facility] Bilirubin, Total 0.6 0.0 - 1.0 mg/dL [facility] Aspartate Amino Transferase 26 5 - 31 U/L [facility] Alanine Aminotransferase 30 0 - 31 U/L [facility] Total Protein 7.6 6.5 - 8.0 g/dL [facility] Albumin Level 4.4 3.5 - 5.0 g/dL [facility] Alkaline Phosphatase 83 39 - 117 U/L [facility] Blood Venous blood specimen / Unknown 04/28/2025 11:07 AM EDT 04/28/2025 1:21 PM EDT us Leela Cuello MD LAB BLOOD ORDERABLES Final Result Performing Organization Address [facility]/ZIP Co de Phone Number [facility] [address] [place] [phone] [phone] * Culture, Urine, Routine (04/27/2025 4:00 PM EDT) Only the most recent of2 resultswithin the time period is included. Urine Urine specimen obtained by clean catch procedure / Unknown 04/27/2025 4:00 PM EDT 04/28/2025 11:28 AM EDT Comment:UACC Narrative [facility] - 04/30/2025 11:45 AM EDT Urine Culture No growth. Specimen Source: Urine clean catch us Yasmine Mao MD LAB MICROBIOLOGY - GENERAL ORD ERABLES Final Result Performing Organization Address City/[facility]/ZIP Co de Phone Number [facility] [address] [place] [address] [phone] * (ABNORMAL) POCT Urinalysis (04/27/2025 3:40 PM EDT) Color, UA Yellow Clarity, UA Clear Glucose, UA Negative Bilirubin, UA Negative Ketones, UA Negative Spec Grav, UA 1.030 Blood, UA Positive(A) Negative, None Detected pH, UA 6.0 Protein, UA Trace Urobilinogen, UA 0.2 Leukocytes, UA Negative Negative, Rare, Trace Nitrite, UA Negative Negative, None Detected Appearance, UA clear QC Media Lot # [id number] Lot# Expiration Date [id number] Urine 04/27/2025 3:40 PM EDT Leela Cuello MD POINT OF CARE TEST EN TER/EDIT ORDERABLES Final Result * BI Mammogram Screening Tomosynthesis Bilateral (08/19/2024 2:45 PM EST) Anatomical Region Laterality Modality Breast Bilateral Mammography 08/19/2024 2:45 PM EST Narrative 08/29/2024 5:16 PM EST [facility] [place] [address] Mammography Report Signed Patient: Jerrica Rebolledo MR#: [id number] : 1980 Acct:[id number] Age/Sex: 44 / F ADM Date: 08/19/24 Loc: [facility] Attending Dr: Yasmine Mao MD Ordering Physician: Yasmine Mao Results: 1Negative Date of Service: 08/19/24 Follow Up: 1 Year From Orig inal Mammogram Procedure(s): MM tomosynthesis screening BI Accession Number(s): [id number] cc: Yasmine Mao EXAMINATION: MM SCREENING DIGITAL [...] 08/29/24 1713 DD/ 1445 TD/TT: 08/19/24 1500 Reconcilement Clerk: Procedure Note Donotuseinterpreter, Image - 08/29/2024 [facility] [address] [place] [address] Mammography Report Signed Patient: Luis Rebolledo#: [id number] : 1980Acct:[id number] Age/Sex: 44 / FADM Date: 08/19/24 Loc: HO.MAMMO Attending Dr: Yasmine Mao MD Ordering Physician: Justo Maoults: 1Negative Date of Service: 08/19/24Follow Up: 1 Year From Orig inal Mammogram Procedure(s): MM tomosynthesis screening BI Accession Number(s): [id number] cc: Yasmine Mao EXAMINATION: MM SCREENING DIGITAL [...] 08/29/24 1713 DD/ 1445 TD/TT: 08/19/24 1500 Reconcilement Clerk: us Yasmine Mao MD IMG BI PROCEDURES Final Result * Pap Smear (05/17/2024) Pap Smear 1. NILM 1. NILM Swab 05/17/2024 Yasmine Herzog MD - 05/17/2024 NILM, HPV neg Samia Wagoner LAB CYTOLOGY ORDERABLES Final Re sult * (ABNORMAL) Lipid Panel with Reflex to Direct LDL (02/26/2024 10:43 AM EDT) Triglycerides 109 <150 mg/dL [facility] Comment:Desirable Triglyceri de: less than 150 mg/dLBorderline High Triglyceride 150-199 mg/dLHigh Triglyceride: 200-499 mg/dLVery High Triglyceride: greater than or equal to 5OO mg/dL Cholesterol 183 <200 mg/dL [facility] Comment:Desirable Cholestero l: less than 200 mg/dLBorderline High Cholesterol: 200-239 mg/dLHigh Cholesterol: greater than 239 mg/dL LDL Cholesterol Calculated 105(H) <100 mg/dL [facility] Comment:Desirable LDL: less than 100 mg/dLNear Optimal/Above Optimal LDL: 110- 129 mg/dLBorderline High LDL: 130-159 mg/dLHigh LDL: 160-189 mg/dLVery High LDL: greater than or equal to 190 mg/dL HDL Cholesterol 57 >40 mg/dL [facility] Comment:Desirable HDL: great er than 40 mg/dL Note: This HDL assay may give artificially low results in patients with liver disease. 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
[2025-05-23 04:53] LABS: Bacterial Vaginosis PCR NEGATIVE (Negative); Candida Group PCR NOT DETECTED (Not Detect); Candida glab krusei PCR DETECTED (Not Detect); Trichomonas vaginalis PCR NOT DETECTED (Not Detect)
[2025-05-23 05:25] LABS: CT PCR NOT DETECTED (Not Detect.); NG PCR NOT DETECTED (Not Detect.)
== END 2025-05-22 13:17 | disposition home or self-care (01) ==
LOC: HO.LNP 13:16
PROVIDERS: PCP General Practice; Visit Provider Advanced Practice Midwife
DX: Z01.419 Encounter for gynecological examination (general) (routine) without abnormal findings (principal); Z30.09 Encounter for other general counseling and advice on contraception; Z98.890 Other specified postprocedural states; Z20.2 Contact with and (suspected) exposure to infections with a predominantly sexual mode of transmission
CPT/HCPCS: 81515; 87491; 87591; 99396; 99459

== ENCOUNTER 2025-06-15 07:32 | Outpatient (AMB) | payer MEDICAID, SELFPAY ==
--- NOTE | 2025-06-15 07:35 | A.OFFVIS_ITS ---
Vital Signs 06/15/25 07:36 Height 4 ft 11 in Weight 165 lb BMI 33.3 BP 120/72 Intake Visit Reasons: scar tissues problems Seat Cover Cutter Required: Yes Seat Cover Cutter Language: Reverse Unit Operator Fisherman Services: Seat Cover Cutter Present (in person) Seat Cover Cutter Name: Theresa REYES Information Interpreted: non-clinical & clinical Quality Assurance Engineer: Quality Assurance Engineer Present (Theresa REYES ) Accompanied by: Daughter Allergies acetaminophen (Percocet) Allergy (Unknown, Verified 06/15/25 07:38) Nausea oxycodone (Percocet) Allergy (Unknown, Verified 06/15/25 07:38) Nausea From PERCOCET Allergy (Mild, Uncoded 06/15/25 07:38) NAUSEA Is last menstrual period known: Yes HPI Comments Details: Presenting complaining that her feeling vaginal foreign body during intercourse over the last few weeks, this started after her abdominoplasty no vaginal discharge other concerns. Last Co testing in 05/19 was negative, last mammogram in 08/20 was BI-RADS 1 PFSH Medical History Hypothyroidism HTN (hypertension) Surgical History Hx of abdominoplasty History of surgery on arm Family History Father Liver cancer HTN (hypertension) Diabetes Stomach cancer Mother HTN (hypertension) Diabetes Maternal Grandfather Diabetes Social History Household Members: Children Housing: House Are you a primary med care manager to a significant other at home: No Do you presently have visiting nurse or other home services: No Alcohol intake: current Alcohol intake frequency: holidays/special occasions only Patient Tobacco Use Status: Never used Tobacco service: No Current occupational status: unemployed Sexual orientation: Straight/Heterosexual Gender identity: Female Female Reproductive History Menstrual Age of Menarche: 11 Total pregnancies: 4 Full term: 3 Number of Living Children: 3 Date of last pap smear: 05/17/24 Date of Mammogram: 08/19/24 Review of Systems Const All systems reviewed & are unremarkable except as noted in HPI and below Physical Exam Vital Signs: Last Vital Signs BP 120/72 06/15/25 07:36 BMI result Body Mass Index 33.3 General: Yes no CVA tenderness External Female Exam: normal external appearance and normal appearance of the urethra Speculum Exam - Vagina: normal appearance of the vagina, normal palpation, no lesions and no masses Speculum Exam - Cervix: normal appearance of the cervix, normal palpation, no lesions, no masses and nontender Bimanual exam- vagina & uterus: normal bimanual exam, normal palpation, uterine size normal, normal palpation, uterine shape normal, No Cervical tenderness present and non-tender Bimanual Exam- Adnexa, other: normal adnexae Back/Spine/Pelvis Back: no CVA tenderness Assessment & Plan Assessment & Plan (1) Vaginal dryness during intercourse: Code(s): N89.8 - Other specified noninflammatory disorders of vagina Category: Medical Plan: Discussed with the patient normal vaginal exam with no evidence of foreign body in the vagina, recommended lubrication during intercourse. Instructions given the patient to call if symptoms do not improve. All questions answered, the patient verbalized understanding Coding Level of Care Code Est Pt Level 3 (93773) Diagnoses Vaginal dryness during intercourse N89.8
[2025-06-15 07:36] VITALS: BP 120/72; BMI 33.3
--- OUTSIDE RECORDS SUMMARY | 2025-06-15 07:37 | XMS_ITS | Encounter Summary ---
Author Organization [employer] Address [address] [place] [address] [address] [place] [address] Care Team Providers Care Hogshead Wrecker Name Role Phone Yasmine Mao MD Primary Care Provider [phone] Encounter Details Date Type Department Care Team (Latest Contact Info) Description 09/30/2018 Abstract [facility] CONVERSIONS Dental, Provider, DDS Social [...] 9:00 AM EST Office Visit [facility] OPTOMETRY [address] [place] [address] Emilia Amaral, OD [address] [place] [address] 07/19/2025 4:00 PM EST Office Visit [facility] MEDICINE [address] [place] [address] Yasmine Mao MD [address] [place], [place] [phone] documented as of this encounter Visit Diagnoses Not on filedocumented in this encounter Care Teams Hogshead Wrecker Relationship Specialty Start Date End Date Yasmine Mao MD [address] [place] [address] PCP - General Family Medicine 10/30/20 documented as of this encounter
--- OUTSIDE RECORDS SUMMARY | 2025-06-15 07:37 | XMS_ITS | Encounter Summary ---
Author Organization [employer] Address [address] [place] [address] [address] [place] [address] Care Team Providers Care Office Support Name Role Phone Yasmine Mao MD Primary Care Provider [phone] Reason for Referral * Consultation (Routine) - Closed Specialty Diagnoses / Procedures Referred By Farhat callahan Referred To Contact Obstetrics and Gynecology Diagnoses Screening for cervical cancer Yasmine Mao MD [address] [place] [address] Phone: tel: fax: [address] Phone: tel: fax: Referral ID Status Reason Start Date Expiration Date V isits Requested Visits Authorized [id number] Closed Specialty Services Required 09/29/2023 09/27/2024 1 12 Encounter Details Date Type Department Care Team (Late st Contact Info) Description 09/25/2023 Orders Only [facility] MEDICINE [address] [place] [address] [phone] Yasmine Mao MD [address] [place] [address] [phone] Screening for cervical cancer (Primary Dx) Social [...] Description 07/18/2025 9:00 AM EST Office Visit [facility] OPTOMETRY [address] [place] [address] Emilia Amaral OD [address] [place] [address] 07/19/2025 4:00 PM EST Office Visit [facility] MEDICINE [address] [place] [address] Yasmine Mao MD [address] [place] [address] Scheduled Referrals Name Type Priority Associated Diagnoses Order Schedule Referral to Obstetrics / Gynecology Outpatient Referral Routine Screening for cervical cancer Expected: 09/25/2023 (Approximate), Expires: 09/24/2024 documented as of this encounter Visit Diagnoses Diagnosis Screening for cervical cancer- Primary Screening for malignant neoplasm of the cervix documented in this encounter Care Teams Office Support Relationship Specialty Start Date End Date Yasmine Mao MD [address] [place] [address] PCP - General Family Medicine 10/30/20 documented as of this encounter
--- OUTSIDE RECORDS SUMMARY | 2025-06-15 07:37 | XMS_ITS | Encounter Summary ---
Author Organization [employer] Address [address] [place] [address] [address] [place] [address] Care Team Providers Care Central Supply Aide Name Role Phone Yasmine Mao MD Primary Care Provider [phone] Reason for Visit * Reason Onset Date Comments Nurse Triage 03/12/2023 Encounter Details Date Type Department Care Team (Late st Contact Info) Description 03/12/2023 Telephone [facility] MEDICINE [address] [place], [place] [phone] Yasmine Mao MD [address] [place], [place] [phone] Nurse Triage Social History Tobacco Use Types [...] 03/12/2023 1:05 PM EDT Triage call with [place] Academic Counselor [place] [id number] Pt is calling in regards to bumps [...] the hip areas. Advised to come to [facility] today to have provider see [...] The caller accepted this outcome Patient speaks montenegrin. documented in this encounter Plan of Treatment Upcoming Encounters Date Type Department Care Team (Late st Contact Info) Description 07/18/2025 9:00 AM EST Office Visit [facility] OPTOMETRY [address] [place] [address] Emilia Amaral, OD [address] [place] [address] 07/19/2025 4:00 PM EST Office Visit [facility] MEDICINE [address] [place] [address] Yasmine Mao MD [address] [place] [address] documented as of this encounter Visit Diagnoses Not on filedocumented in this encounter Care Teams Central Supply Aide Relationship Specialty Start Date End Date Yasmine Mao MD [address] [place] [address] PCP - General Family Medicine 10/30/20 documented as of this encounter
--- OUTSIDE RECORDS SUMMARY | 2025-06-15 07:37 | XMS_ITS | Encounter Summary ---
Author Organization [employer] Address [address] [facility] [address] [place] [address] Care Team Providers Care Prepress Supervisor Name Role Phone Yasmine Mao MD Primary Care Provider [phone] Reason for Visit * Reason Onset Date Comments Results 05/02/2025 Encounter Details Date Type Department Care Team (Late st Contact Info) Description 05/02/[address] [facility] MEDICINE [address] [place], [place] [phone] Yasmine Mao MD [address] [place], [place] [phone] Results Social History Tobacco Use Types Packs/Day [...] Blood test Date when done: 04/28 Facility: [facility] Contact pt at [phone] Need freelance interpreter/translator documented in this encounter Plan of Treatment Upcoming Encounters Date Type Department Care Team ([facility] st Contact Info) Description 07/18/2025 9:00 AM EST Office Visit [facility] OPTOMETRY [address] [place] [address] Emilia Amaral, OD [address] [place] [address] 07/19/2025 4:00 PM EST Office Visit [facility] MEDICINE [address] [place] [address] Yasmine Mao MD [address] [place] [address] documented as of this encounter Visit Diagnoses Not on filedocumented in this encounter Additional Health Concerns Assessment Noted Time PHQ-9 Depression Total Score: 8 02/26/20 24 10:10 AM EDT documented as of this encounter Care Teams Prepress Supervisor Relationship Specialty Start Date End Date Yasmine Mao MD [address] [place] [address] PCP - General Family Medicine 10/30/20 documented as of this encounter
--- OUTSIDE RECORDS SUMMARY | 2025-06-15 07:37 | XMS_ITS | Clinical Summary ---
Author Organization [employer] Address [address] [place] [address] 7 [place] [address] Care Team Providers Care Cane Flume Chute Operator Name Role Phone Yasmine Mao MD Primary Care Provider [phone] Allergies Active Allergy Reactions Criticality Noted Date [...] D (Vitamin D-3) 50 MCG (1999 UT) capsuleIndicati ons:Vitamin D deficiency TAKE 3 CAPSULE BY MOUTH ONCE A DAY AFTER A MEAL 4 Active B Complex Vitamins (vitamin B complex) tabletIndicatio ns:Hair loss Take 1 tablet by mouth Once per day. 90 tablet 3 4 Active EPINEPHrine (Epipen) 0.3 MG/0.3ML injection syringeIndicati ons:Anaphylaxis , sequela Inject 0.3 mL (0.3 mg) as directed 1 (one) time if needed for anaphylaxis for up to 2 doses. Inject into upper leg. Call 911 after use. 1 each 1 5 Active busPIRone (Buspar) 5 MG tabletIndicatio ns:Anxiety Take 1 tablet by mouth if needed in the morning and at bedtime for anxiety. 5 Active baclofen (Lioresal) 20 MG tablet Take 1 tablet (20 mg) by mouth 2 times daily. 60 tablet 6 5 Active propranolol (Inderal) 40 MG tabletIndicatio ns:Migraine with aura and without status migrainosus, not intractable Take 1 tablet (40 mg) by mouth 2 times daily. 60 tablet 1 5 12/07/19 26 Active meclizine (Antivert) 12.5 MG tablet 12.5 MG BY MOUTH 3 TIMES A DAY NEEDED FOR DIZZINESS 5 Active levothyroxine (Synthroid, Levoxyl) 50 MCG tablet TAKE 1 TABLET BY MOUTH EVERY DAY BEFORE BREAKFAST 90 tablet 3 5 Active lisinopril-hydr oCHLOROthiazide 20-25 MG tablet TAKE 1 TABLET BY MOUTH EVERY DAY 90 tablet 3 5 Active LORazepam (Ativan) 0.5 MG tablet Take 1 tab po 45 minutes before flight, may repeat once after 1 hour prn anxiety, telugu Do not drive with medicaion. 2 tablet 5 Active diphenhydrAMINE (BENADryl) 25 MG capsule Take 2 capsules (50 mg) by mouth every 6 (six) hours if needed for itching. May take 1-2 capsules prn rashor itching 30 capsule 5 04/04/20 26 Active triamcinolone (Kenalog) 0.1 % cream Apply topically 2 times daily. 30 g 1 5 Active Blood Pressure Monitoring (Blood Pressure Cuff) miscIndications :Elevated blood pressure reading USE TO CHECK BLOOD PRESSURE DIRECTED 1 each 5 Active cetirizine (ZyrTEC) 10 MG tablet TAKE 1 TABLET BY MOUTH EVERY DAY NEEDED 90 tablet 5 Active dextran 70-hypromellose (artificial tears) 0.1-0.3 % ophthalmic solutionIndicat ions:Dry eyes, bilateral Administer 1 drop into both eyes if needed in the morning, at noon, and at bedtime for dry eyes. 15 mL 6 4 06/09/20 25 Active Problems Problem Noted Date Diagnosed Date [...] Overview (05/31/2024): Tried to have BTL at [facility] in 2018, could not insert laparoscopes [...] renal cyst 04/25/2019 Overview (01/21/2023): Followed by [facility], f/u annually w/ US. last seen [...] Date Type Department Care Team Description 05/22/2025 Orders Only GENERIC EXTERNAL DATA DEPARTMENT Provider, Generic External Data 05/22/2025 Telephone [facility] [address] [place] [address] Yasmine Mao MD triage 05/15/2025 Results Follow-Up [facility] [address] [place] [address] Leela Salgado MD POCT Urinalysis, CBC auto differential, Comprehensive Metabolic Panel, Additional followed-up results: 8 05/15/2025 Orders Only [facility] [address] [facility] [place] [address] Leela Salgado MD Other fatigue (Primary Dx); Positive JERRICA (antinuclear antibody) 05/02/2025 Telephone [facility] [address] [place] [phone] Yasmine Mao MD Results 04/27/2025 3:15 PM EDT Office Visit [address] [address] Leela Salgado MD Hot flashes (Primary Dx); Dizziness; UTI symptoms; Diffuse pain 04/27/2025 Orders Only [facility] [address] [place] [phone] Yasmine Mao MD 04/27/2025 Travel 04/06/2025 Refill [facility] [address] [place], [place] [phone] Yasmine Mao MD 04/04/2025 10:20 AM EDT Office Visit [facility] [address] [place] [phone] Richard Woodard MD Local reaction to insect sting, accidental or unintentional, initial encounter (Primary Dx); Essential hypertension; Elevated blood pressure reading 04/04/2025 Refill [facility] [address] [place] [phone] Yasmine Mao MD Elevated blood pressure reading 04/04/2025 Refill [facility] [address] [place] [phone] Richard Woodard MD 04/04/2025 Travel 04/04/[address] [address] Yasmine Mao MD Nurse Triage from Last [...] Description 07/18/2025 9:00 AM EST Office Visit [facility] [address] [place] [address] TarEmilia guerrero, OD [address] [place] [address] 07/19/2025 4:00 PM EST Office Visit [facility] [address] [place] [address] Yasmine Mao MD [address] [place] [address] Health Maintenance Due Date Last Done Comments [...] 04/27/2025 Lipid Panel 02/25/2029 02/26/2024, 03/27, 10/23/2020 Cervical Cancer Screening 05/17/2029 Pap Smear 05/17/2029 05/17/2024, 11/25/2019 Zoster Vaccines [...] Procedure Name Priority Date/Time Associated Diagnosis Comments CHLAMYDIA/N. GONORRHOEAE RNA, TMA, UROGENITAL Routine 05/22/2025 5:10 PM EDT BACTERIAL VAGINOSIS PANEL Routine 05/22/2025 5:10 PM EDT LH Routine 04/28/2025 11:07 AM EDT Hot [...] Recently Relevant to Health Maintenance Results * (ABNORMAL) Bacterial Vaginosis (05/22/2025 5:10 PM EDT) Pathologist [facility] TRICHOMONAS VAGINALIS DETECTION BY PCR NOT DETECTED Not Detect [facility] BACTERIAL VAGINOSIS DETECTION BY PCR NEGATIVE Negative [facility] Comment:The BV organism targ ets of the Xpert Xpress MVP test can becommensal in women; Xpert Xpress MVP positive results forbacterial vaginosis should be considered in conjunction withother clinical and patient information to determine thedisease status. Organisms that are not detected by the XpertXpress MVP test have also been reported to be associatedwith BV and aerobic vaginitis.The Xpert Xpress MVP test performance has not been evaluatedin patients under the age of 14. PRICILA GROUP DETECTION BY PCR NOT DETECTED Not Detect [facility] Pricila glab krusei PCR DETECTED(A) Not Detect [facility] 05/22/2025 5:10 PM EDT 05/23/2025 10:33 AM EDT us Generic External Data Provider LAB MICROBIOLOGY - GENERAL ORDERABLES Final Result [facility] [address] [place] [phone] * Chlamydia/N. Gonorrhoeae RNA, TMA, Urogenitial (05/22/2025 5:10 PM EDT) Pathologist [facility] CT PCR NOT DETECTED Not Detect. [facility] Comment:A not detected test result does not exclude the possibilityof infection because test results can be affected byimproper specimen collection, concurrent antibiotic therapy,or the number of organisms in the specimen which may bebelow the sensitivity of the test. As with many diagnostictests, results from the Xpert CT/NG assay should beinterpreted in conjunction with other laboratory andclinical data available to the clinician.Xpert CT/NG performance has not been evaluated in patientsless than 14 years of age. The assay should not be used forthe evaluationof suspected sexual abuse or for other medico-legalindications. Additional testing is recommended in anycircumstance when false positive or false negative resultscould lead to adverse medical, social or psychologicalconsequences. NG PCR NOT DETECTED Not Detect. [facility] Comment:A not detected test result does not exclude the possibilityof infection because test results can be affected byimproper specimen collection, concurrent antibiotic therapy,or the number of organisms in the specimen which may bebelow the sensitivity of the test. As with many diagnostictests, results from the Xpert CT/NG assay should beinterpreted in conjunction with other laboratory andclinical data available to the clinician.Xpert CT/NG performance has not been evaluated in patientsless than 14 years of age. The assay should not be used forthe evaluationof suspected sexual abuse or for other medico-legalindications. Additional testing is recommended in anycircumstance when false positive or false negative resultscould lead to adverse medical, social or psychologicalconsequences. 05/22/2025 5:10 PM EDT 05/23/2025 10:34 AM EDT us Generic External Data Provider LAB MICROBIOLOGY - GENERAL ORDERABLES Final Result Performing Organization Address City/State/[facility] Co de Phone Number [facility] [address] [place] [phone] * TSH with Reflex to Free T4 (04/28/2025 11:07 AM EDT) TSH reflex Free T4 2.72 0.32 - 4.0 uIU/mL [facility] Blood Venous blood specimen / Unknown 04/28/2025 11:07 AM EDT 04/28/2025 1:21 PM EDT us Leela Cuello MD LAB BLOOD ORDERABLES Final Result Performing Organization Address City/[facility] Co de Phone Number [facility] [address] [place] [address] [phone] * Hepatitis Panel, General (04/28/2025 11:07 AM EDT) Pathologist [facility] Hepatitis A IgM Nonreactive Nonreactive [facility] Comment:IgM antibodies to WHITE V not detected; does not exclude earlyacute or recovered HAV infection. ~Hepatitis B Surface Antibody REACTIVE Nonreactive [facility] Comment:REACTIVE: > 11.99 mI U/mL Hepatitis B Core Antibody Nonreactive Nonreactive [facility] Hepatitis C Antibody Nonreactive Nonreactive [facility] Comment:Antibodies to HCV no t detected; does not exclude early acuteHCV infection. Hepatitis B Surface Ag Negative Negative [facility] Blood Venous blood specimen / Unknown 04/28/2025 11:07 AM EDT 04/28/2025 1:21 PM EDT Leela Cuello MD LAB BLOOD ORDERABLES Final Result Performing Organization Address [facility] de Phone Number [facility] [address] [place] [address] [phone] * (ABNORMAL) CBC auto differential (04/28/2025 11:07 AM EDT) [facility] White Blood Count 8.2 4.8 - 10.8 X10*3/uL [facility] Red Blood Count 4.39 4.20 - 5.50 X10*6/uL [facility] Hemoglobin 12.8 12.0 - 16.0 g/dl [facility] Hematocrit 38.4 37.0 - 47.0 % [facility] Mean Corpuscular Volume 87.5 80.0 - 98.0 fL [facility] Mean Corpuscular Hemoglobin 29.2 27.0 - 33.0 pg [facility] Mean Corpuscular HGB Conc 33.3 31.0 - 35.0 g/dl [facility] Red Cell Distribution Width 12.8 11.0 - 16.0 % [facility] Platelet Count 483(H) 160 - 400 X10*3/uL [facility] Mean Platelet Volume 10.0 9.4 - 12.3 fL [facility] Neutrophils Percent Auto 67.7 45 - 73 % [facility] Imm Gran Pct Auto 0.9(H) 0.0 - 0.4 % [facility] Lymphocytes Percent Auto 23.2 20 - 40 % [facility] Monocytes Percent Auto 6.0 2 - 11 % [facility] Eosinophils Percent Auto 1.3 0 - 4 % [facility] Basophils Percent Auto 0.9 0 - 2 % [facility] NRBC Pct Auto 0.0 0.0 - 0.2 /100WBC [facility] Neutrophils Absolute Auto 5.5 2.0 - 8.3 x10*3/uL [facility] Imm Gran Abs Auto 0.07(H) 0.00 - 0.03 X10*3/uL [facility] Lymphocytes Absolute Auto 1.9 1.2 - 4.9 X10*3/uL [facility] Monocytes Absolute Auto 0.5 0.1 - 1.2 X10*3/uL [facility] Eosinophils Absolute Auto 0.1 0.0 - 0.4 X10*3/uL [facility] Basophils Absolute Auto 0.1 0.0 - 0.2 X10*3/uL [facility] NRBC Abs Auto 0.000 0.0 - 0.012 X10*3/uL [facility] Blood Venous blood specimen / Unknown 04/28/2025 11:07 AM EDT 04/28/2025 1:21 PM EDT us Leela Cuello MD LAB BLOOD ORDERABLES Final Result [facility] [address] [place] [address] [phone] * HIV-1/2 Antigen and Antibodies, Fourth Generation, with Reflexes (04/28/2025 11:07 AM EDT) HIV AB/AG Nonreactive Nonreactive [facility] Comment:HIV-1 p24 Ag and/or HIV-1/HIV-2 Ab not detected.A test result that is nonreactive does not exclude thepossibility of exposure to or infection with HIV-1 and/orHIV-2. Nonreactive results in this assay for individualswith prior exposure to HIV-1 and/or HIV-2 may be due toantigen and antibody levels that are below the limit ofdetection of this assay.The [employer] HIV Ag/Ab Combo assay result andsupplemental assay results should be interpreted inconjunction with the patient's clinical presentation,history and other laboratory results. If the results areinconsistent with clinical evidence, additional testing issuggested to confirm the result. Blood Venous blood specimen / Unknown 04/28/2025 11:07 AM EDT 04/28/2025 1:21 PM EDT Leela Cuello MD LAB BLOOD ORDERABLES Final Result [facility] [address] [place] [address] [phone] * (ABNORMAL) JERRICA Screen,IFA, with Reflex to Titer and Pattern (04/28/2025 11:07 AM EDT) Pathologist [facility] Anti Nuclear Antibody Screen POSITIVE (A) NEGATIVE [facility] Comment:JERRICA IFA is a first l ine screen for detecting thepresence of up to approximately 150 autoantibodies invarious autoimmune diseases. A positive JERRICA IFA resultis suggestive of autoimmune disease and reflexes totiter and pattern. Further laboratory testing may beconsidered if clinically indicated.For additional information, please refer tohttp://education.FaceBuzz/faq/UVK441(This link is being provided for informational/educational purposes only.) JERRICA Titer 1:640(A) titer [facility] Comment:Reference Range <1:4 0 Negative 1:40-1:80 Low Antibody Level >1:80 Elevated Antibody Level JERRICA Pattern (A) [facility] Comment:Nuclear, Few Nuclear Dots Abnormal Flag: ANuclear dots (1-6 in number per cell) pattern is seen inSjogren's syndrome, systemic lupus erythematosus (SLE),systemic sclerosis (scleroderma), polymyositis, andasymptomatic individuals.AC-7: Few Nuclear DotsInternational Consensus on JERRICA Patterns(https://doi.org/10.1515/epjo-3325-7609) JERRICA Titer 2 1:640(A) titer [facility] Comment:Reference Range <1:4 0 Negative 1:40-1:80 Low Antibody Level >1:80 Elevated Antibody Level JERRICA Pattern 2 (A) [facility] Comment:Nuclear, Dense Fine Speckled Abnormal Flag: ADense fine speckled pattern is seen in normalindividuals and rarely associated with systemic lupuserythematosis (SLE), Sjogren's syndrome and systemicsclerosis.AC-2: Dense Fine SpeckledInternational Consensus on JERRICA Patterns(https://doi.org/10.1515/amaz-4511-5463)THIS TEST WAS PERFORMED AT:[facility] [place] [phone] MCFADDEN MD Blood Venous blood specimen / Unknown 04/28/2025 11:07 AM EDT 04/28/2025 1:21 PM EDT us Leela Cuello MD LAB BLOOD ORDERABLES Final Result [facility] [address] [place] [phone] [phone] * Hemoglobin A1c (04/28/2025 11:07 AM EDT) Hemoglobin A1c 5.4 <6.0 % [facility] Comment:Hemoglobin A1C Refer ence Range Adults: 4.8 - 6.0 % Non diabetic: < 6.0 % Goal: < 7.0 %Additional Action Suggested: > 8.0 %Note: Hemoglobin A1c results are invalid for patients with abnormal amounts of HbF. Blood transfusions may impact the HbA1c concentration in the patient sample. Estimated Average Glucose 108 mg/dL [facility] Comment:eAG = Estimated ave rage glucose which is %A1C expressed asaverage glucose, using the formula of the G7O-UksagylQuddbzd Glucose study (ADAG), Diabetes Care, Vol.31,#8,2007 Blood Venous blood specimen / Unknown 04/28/2025 11:07 AM EDT 04/28/2025 1:21 PM EDT Leela Cuello MD LAB BLOOD ORDERABLES Final Result Performing Organization Address [facility] Co de Phone Number [facility] [address] [place] [phone] * LH (04/28/2025 11:07 AM EDT) Lutenizing Hormone 7.3 mIU/mL [facility] Comment:Reference Range Foll icular Phase 1.9-12.5 Mid-Cycle Peak 8.7-76.3 Luteal Phase 0.5-16.9 Postmenopausal 10.0-54.7THIS TEST WAS PERFORMED AT:[facility] [address] [phone] MCFADDEN MD Blood Venous blood specimen / Unknown 04/28/2025 11:07 AM EDT 04/28/2025 1:21 PM EDT Leela Cuello MD LAB BLOOD ORDERABLES Final Result Performing Organization Address [facility] de Phone Number [facility] [address] [place] [phone] * FSH (04/28/2025 11:07 AM EDT) Follicle Stimulating Hormone 8.2 mIU/mL [facility] Comment:Reference Range Foll icular Phase 2.5-10.2 Mid-cycle Peak 3.1-17.7 Luteal Phase 1.5- 9.1 Postmenopausal 23.0-116.3THIS TEST WAS PERFORMED AT:[facility] [address] [phone] MCFADDEN MD Blood Venous blood specimen / Unknown 04/28/2025 11:07 AM EDT 04/28/2025 1:21 PM EDT Leela Cuello MD LAB BLOOD ORDERABLES Final Result [facility] [address] [place] [address] [phone] * (ABNORMAL) Comprehensive Metabolic Panel (04/28/2025 11:07 AM EDT) Sodium 137 135 - 145 mmol/L [facility] Potassium 3.5 3.3 - 5.1 mmol/L [facility] Chloride 100 96 - 108 mmol/L [facility] Carbon Dioxide 28 22 - 29 mmol/L [facility] Anion Gap 13 12 - 20 [facility] Urea Nitrogen (BUN) 6(L) 9 - 16 mg/dL [facility] Creatinine, Serum 0.50 0.5 - 1.4 mg/dL [facility] Estimated Glomerular Filt Rate >60 [facility] Comment:Chronic Kidney Disea se: Estimated GFR < 60 mL/min/1.94k2Kjtxjw Kidney Disease: Estimated GFR < 15 mL/min/1.73m2 Glucose 93 60 - 115 mg/dL [facility] Calcium 9.1 8.4 - 10.2 mg/dL [facility] Bilirubin, Total 0.6 0.0 - 1.0 mg/dL [facility] Aspartate Amino Transferase 26 5 - 31 U/L [facility] Alanine Aminotransferase 30 0 - 31 U/L [facility] Total Protein 7.6 6.5 - 8.0 g/dL [facility] Albumin Level 4.4 3.5 - 5.0 g/dL [facility] Alkaline Phosphatase 83 39 - 117 U/L [facility] Blood Venous blood specimen / Unknown 04/28/2025 11:07 AM EDT 04/28/2025 1:21 PM EDT Leela Cuello MD LAB BLOOD ORDERABLES Final Result Performing Organization Address City/[facility]/ZIP Co de Phone Number [facility] [address] [place] [phone] * Culture, Urine, Routine (04/27/2025 4:00 PM EDT) Only the most recent of2 resultswithin the time period is included. Urine Urine specimen obtained by clean catch procedure / Unknown 04/27/2025 4:00 PM EDT 04/28/2025 11:28 AM EDT Comment:UACC Narrative [facility] - 04/30/2025 11:45 AM EDT Urine Culture No growth. Specimen Source: Urine clean catch Yasmine Mao MD LAB MICROBIOLOGY - GENERAL ORD ERABLES Final Result Performing Organization Address [facility] Co de Phone Number [facility] [address] [place] [phone] * (ABNORMAL) POCT Urinalysis (04/27/2025 3:40 [...] Media Lot # [id number] Lot# Expiration Date 56,026 Urine 04/27/2025 3:40 PM EDT Leela Cuello MD POINT OF CARE TEST EN TER/EDIT ORDERABLES Final Result * BI Mammogram Screening Tomosynthesis Bilateral (08/19/2024 2:45 PM EST) Anatomical Region Laterality Modality Breast Bilateral Mammography 08/19/2024 2:45 PM EST Narrative 08/29/2024 5:16 PM EST [address] [place] [address] Mammography Report Signed Patient: Jerrica Rebolledo MR#: [id number] : 1980 Acct:[id number] Age/Sex: 44 / F ADM Date: 08/19/24 Loc: HO.MAMMO Attending Dr: Yasmine Mao MD Ordering Physician: Yasmine Mao Results: 1Negative Date of Service: 08/19/24 Follow Up: 1 Year From Orig inal Mammogram Procedure(s): MM tomosynthesis screening BI Accession Number(s): [id number] cc: Yasmine Mao EXAMINATION: MM SCREENING DIGITAL [...] 08/29/24 1713 DD/ 1445 TD/TT: 08/19/24 1500 Beamster: Procedure Note Donotuseinterpreter, Image - 08/29/[address] [place] [address] Mammography Report Signed Patient: Jerrica RebolledoMR#: [id number] : 1980Acct:[id number] Age/Sex: 44 / FADM Date: 08/19/24 Loc: HO.MAMMO Attending Dr: Yasmine Mao MD Ordering Physician: Justo Maoults: 1Negative Date of Service: 08/19/24Follow Up: 1 Year From Orig ina Mammogram Procedure(s): MM tomosynthesis screening BI Accession Number(s): [id number] cc: Yasmine Mao EXAMINATION: MM SCREENING DIGITAL [...] by: Yoana Son DO 08/29/2024 05:13 PM [facility] Dictated By: Yoana Son DO Signed By: <Electronically signed by Yoana Son DO in OV> 08/29/24 1713 DD/ 1445 TD/TT: 08/19/24 1500 Beamster: Yasmine Mao MD IMG BI PROCEDURES Final Result * Pap Smear (05/17/2024) Pap Smear 1. NILM 1. NILM Swab 05/17/2024 Impressions Yasmine Mao MD - 05/17/2024 NILM, HPV neg Samia Reading LAB CYTOLOGY ORDERABLES Final Re sult * (ABNORMAL) Lipid Panel with Reflex to Direct LDL (02/26/2024 10:43 AM EDT) Triglycerides 109 <150 mg/dL [facility] Comment:Desirable Triglyceri de: less than 150 mg/dLBorderline High Triglyceride 150-199 mg/dLHigh Triglyceride: 200-499 mg/dLVery High Triglyceride: greater than or equal to 5OO mg/dL Cholesterol 183 <200 mg/dL [facility] Comment:Desirable Cholestero l: less than 200 mg/dLBorderline High Cholesterol: 200-239 mg/dLHigh Cholesterol: greater than 239 mg/dL LDL Cholesterol Calculated 105(H) <100 mg/dL [facility] Comment:Desirable LDL: less than 100 mg/dLNear Optimal/Above Optimal LDL: 110- 129 mg/dLBorderline High LDL: 130-159 mg/dLHigh LDL: 160-189 mg/dLVery High LDL: greater than or equal to 190 mg/dL HDL Cholesterol 57 >40 mg/dL [facility] Comment:Desirable HDL: great er than 40 mg/dL Note: This HDL assay may give artificially low results in patients with liver disease. Blood 02/26/2024 10:4 3 AM EDT 02/26/2024 12:59 PM EDT Leela Cuello MD LAB BLOOD ORDERABLES Final Result [facility] [address] [place] [phone] * Pap Smear (11/25/2019) Pap Negative for intraephithelial lesion or malignancy Negative for intraephithelial lesion or malignancy, Other HPV Undetected Undetected, Indeterminate, Quantitative, Not Detected Jana Provider HEALTH MAINTENANCE Final Result from Last 3 Months or Most Recently Relevant to Health Maintenance Insurance [facility] C3 Care Teams Cane Flume Chute Operator Relationship Specialty Start Date End Date Yasmine Mao MD [address] [place] [phone] PCP - General Family Medicine 10/30/20
--- OUTSIDE RECORDS SUMMARY | 2025-06-15 07:37 | XMS_ITS | Encounter Summary ---
Author Organization [employer] Address [address] [place] [address] 7 [place] [address] Care Team Providers Care Category Development Manager Name Role Phone Yasmine Mao MD Primary Care Provider [phone] Encounter Details Date Type Department Care Team (Late st Contact Info) Description 07/18/2022 Orders Only [facility] [address] [place] [address] Ana Phelan LPN Social History Tobacco Use [...] Description 07/18/2025 9:00 AM EST Office Visit [facility] OPTOMETRY [address] [place] [address] Munir Emilia, OD [address] [place] [address] 07/19/2025 4:00 PM EST Office Visit [facility] MEDICINE [address] [place] [address] Yasmine Mao MD [address] [place] [address] documented as of this encounter Procedures Procedure Name Priority Date/Time Associated Diagnosis Comments BI MAMMOGRAM SCREENING TOMOSYNTHESIS BILATERAL Routine 08/08/2022 9:30 AM EST documented in this encounter Results * BI Mammogram Screening Tomosynthesis Bilateral (08/08/2022 9:30 AM EST) Anatomical Region Laterality Modality Breast Bilateral Mammography 08/08/2022 9:30 AM EST Narrative 08/11/2022 12:55 PM EST [facility] [address] [place] [address] Mammography Report Signed Patient: Gayathri Rebolledo MR#: [id number] : 1980 Acct:[id number] Age/Sex: 42 / F ADM Date: 08/08/22 Loc: [facility] Attending Dr: Yasmine Mao MD Ordering Physician: Yasmine Mao Results: 1Negative Date of Service: 08/08/22 Follow Up: 1 Year From Orig inal Mammogram Procedure(s): MM tomosynthesis screening BI Accession Number(s): [id number] cc: Yasmine Mao EXAMINATION: MM SCREENING DIGITAL [...] for their next mammogram. Dictated By: Bartolo Bihsop MD Signed By: <Electronically signed by Bartolo Bishop MD in OV> 08/11/22 1252 DD/ 0930 TD/TT: Global Position System Technician: JENNIFER Procedure Note Donotuseinterpreter, Image - 08/11/2022 [facility] [address] [place], [place] [address] Mammography Report Signed Patient: Luis Rebolledo#: [id number] : 1980Acct:[id number] Age/Sex: 42 / FADM Date: 08/08/22 Loc: [facility] Attending Dr: Yasmine Mao MD Ordering Physician: Justo Maoults: 1Negative Date of Service: 08/08/22Follow Up: 1 Year From Orig inal Mammogram Procedure(s): MM tomosynthesis screening BI Accession Number(s): [id number] cc: Yasmine Mao EXAMINATION: MM SCREENING DIGITAL [...] in OV> 08/11/22 1252 DD/ 0930 TD/TT: Global Position System Technician: RODRIGUEZ [facility] External Provider IMG BI PROCEDURES Edited Result - Final documented in this encounter Visit Diagnoses Not on filedocumented in this encounter Care Teams Category Development Manager Relationship Specialty Start Date End Date Yasmine Mao MD [address] [place] [address] PCP - General Family Medicine 10/30/20 documented as of this encounter
--- OUTSIDE RECORDS SUMMARY | 2025-06-15 07:37 | XMS_ITS | Encounter Summary ---
Author Organization [employer] Address [address] [facility] 7t [place] [address] Care Team Providers Care Supervisor [employer] Buildings Name Role Phone Yasmine Mao MD Primary Care Provider Reason for Visit * Reason Onset Date Comments Referral 01/04/2024 Encounter Details Date Type Department Care Team (Late st Contact Info) Description 01/04/2024 Telephone [facility] MEDICINE [address] [place], [place] [phone] Yasmine Mao MD [address] [place], [place] [phone] Referral Social History Tobacco Use Types Packs/Day [...] 11:35 AM EDT Tc from pt requesting [facility] referral to be re faxed to office. [facility] office has not received referral. documented in this encounter Plan of Treatment Upcoming Encounters Date Type Department Care Team (Late st Contact Info) Description 07/18/2025 9:00 AM EST Office Visit [facility] OPTOMETRY [address] [place] [address] Gerayolanda Emilia, OD [address] [place] [address] 07/19/2025 4:00 PM EST Office Visit [facility] MEDICINE [address] [place] [address] Yasmine Mao MD [address] [place] [address] documented as of this encounter Visit Diagnoses Not on filedocumented in this encounter Care Teams Supervisor [employer] Buildings Relationship Specialty Start Date End Date Yasmine Mao MD [address] [place] [address] PCP - General Family Medicine 10/30/20 documented as of this encounter
--- OUTSIDE RECORDS SUMMARY | 2025-06-15 07:37 | XMS_ITS | Encounter Summary ---
Author Organization [employer] Address [address] [facility] [address] [place] [address] Care Team Providers Care Sheet Metal Installer Name Role Phone Yasmine Mao MD Primary Care Provider [phone] Reason for Visit * Reason Comments Med Refill Encounter Details Date Type Department Care Team (Late st Contact Info) Description 06/21/2023 Refill [facility] [address] [place], [place] [phone] Sarah Beth [place] DO [address] [place], [place] [phone] Social History Tobacco Use Types Packs/Day Years [...] Office Visit [facility] OPTOMETRY [address] [place] [address] Emilia Amaral, OD [address] [place] [address] 07/19/2025 4:00 PM EST Office Visit [facility] MEDICINE [address] [place] [address] Yasmine Mao MD [address] [place] [address] documented as of this encounter Visit Diagnoses Not on filedocumented in this encounter Care Teams Sheet Metal Installer Relationship Specialty Start Date End Date Yasmine Mao MD [address] [place] [address] PCP - General Family Medicine 10/30/20 documented as of this encounter
--- OUTSIDE RECORDS SUMMARY | 2025-06-15 07:37 | XMS_ITS | Encounter Summary ---
Author Organization [employer] Address [address] [place] [address] 7[address] [place] [address] Care Team Providers Care Credentialing Assistant Name Role Phone Yasmine Mao MD Primary Care Provider [phone] Encounter Details Date Type Department Care Team (Late st Contact Info) Description 09/10/2022 Orders Only [facility] MEDICINE [address] [place], [place] [phone] Yasmine Mao MD [address] [place], [place] [phone] Essential hypertension (Primary Dx); Other specified hypothyroidism [...] Description 07/18/2025 9:00 AM EST Office Visit [facility] OPTOMETRY [address] [place], [place] [phone] Emilia Amaral, OD [address] [place] [address] 07/19/2025 4:00 PM EST Office Visit [facility] MEDICINE [address] [place], [place] [phone] Yasmine Mao MD [address] [place], [place] [phone] documented as of this encounter Procedures Procedure Name Priority Date/Time Associated Diagnosis Comments TSH W/REFLEX TO FT4 Routine 09/16/2022 1 2:26 PM EST Other specified hypothyroidism CBC WITH AUTO DIFFERENTIAL Routine 09/16/2022 12:26 PM EST Essential hypertension documented in this encounter Results * (ABNORMAL) CBC auto differential (09/16/2022 12:26 PM EST) White Blood Cell Count 8.3 3.8 - 10.8 Thousand/ uL [facility] Red Blood Cell Count 4.20 3.80 - 5.10 Million/u L [facility] Hemoglobin 12.6 11.7 - 15.5 g/dL [facility] Hematocrit 37.0 35.0 - 45.0 % [facility] MCV 88.1 80.0 - 100.0 fL [facility] MCH 30.0 27.0 - 33.0 pg [facility] MCHC 34.1 32.0 - 36.0 g/dL [facility] RDW 12.1 11.0 - 15.0 % [facility] Platelet Count 414(H) 140 - 400 Thousand/ uL [facility] MPV 10.5 7.5 - 12.5 fL [facility] Absolute Neutrophils 4,789 1,500 - 7,800 cells/uL [facility] Absolute Lymphocytes 2,689 850 - 3,900 cells/uL [facility] Absolute Monocytes 465 200 - 950 cells/uL [facility] Absolute Eosinophils 291 15 - 500 cells/uL [facility] Absolute Basophils 66 0 - 200 cells/uL [facility] Neutrophils 57.7 % [facility] [employer] Lymphocytes 32.4 % [facility] [employer] Monocytes 5.6 % [facility] [place] [facility] Eosinophils 3.5 % [facility] Basophils 0.8 % [facility] [place] [employer] Blood Venous blood specimen / Unknown 09/16/2022 12:26 PM EST 09/16/2022 12:27 PM EST Narrative [facility] - 09/17/2022 5:01 AM EST FASTING:NO FASTING: NO us Yasmine Mao MD LAB BLOOD ORDERABLES Final Res ult [facility] [address], [place] [address] [facility] [address] [facility], ([address]) [place] [address] * TSH W/Reflex to FT4 (09/16/2022 12:26 PM EST) TSH w/Reflex to FT4 2.33 mIU/L [facility] [employer] [facility] Comment: Reference Range > or = 20 Years 0.40-4.50 Ranges First trimester 0.26-2.66 Second trimester 0.55-2.73 Third trimester 0.43-2.91 09/16/2022 12:2 6 PM EST 09/16/2022 12:27 PM EST Narrative [facility] - 09/17/2022 5:01 AM EST FASTING:NO FASTING: NO us Yasmine Mao MD LAB BLOOD ORDERABLES Final Res ult [employer] [facility], [facility], [place] [address] [facility] [address] [facility], ([address]) [place] [address] documented in this encounter Visit Diagnoses Diagnosis Essential hypertension- Primary Unspecified essential hypertension Other specified hypothyroidism documented in this encounter Care Teams Credentialing Assistant Relationship Specialty Start Date End Date Yasmine Mao MD [address] [place] [address] PCP - General Family Medicine 10/30/20 documented as of this encounter
== END 2025-06-15 08:23 | disposition home or self-care (01) ==
LOC: HO.HWS 07:33
PROVIDERS: PCP General Practice; Visit Provider Obstetrics & Gynecology
DX: N89.8 Other specified noninflammatory disorders of vagina (principal)
CPT/HCPCS: 99213

== ENCOUNTER → 2025-06-15 07:32 | Outpatient (BNVA) | payer MEDICAID, SELFPAY | PROVIDERS: PCP General Practice; Visit Provider Obstetrics & Gynecology | DX: N89.8 Other specified noninflammatory disorders of vagina (principal) | CPT/HCPCS: 99212 ==